=== PATIENT | male | born 1940 | race Caucasian/White ===

== ENCOUNTER → 2016-12-18 | Outpatient (CLI) | payer OTHER ==
[~2016-12-18] VITALS: Ht 175.3 cm; Wt 108.4 kg
[~2016-12-18] MED LIST: AMLO10TA4 PO; ASPEC325 PO; ASPI-435 PO; CHOL1000 PO; DTRSR/2 PO; FERR1TAB13 PO; FRRG PO; HYDR25TA4 PO; LISI-725 PO; LPT/40 PO; MECL1TAB42 PO; METO1TAB69 PO; MOME200A INH; OMEG10007 PO; OMEP40CA41 PO; PRLSR20 PO; SENNTAB23 PO; TAMS0.4C38 PO; VALS320T PO
[2016-12-18 13:12] VITALS: BP 190/77; PULSE 98; Ht 175.3 cm; Wt 108.4 kg
== END | disposition home or self-care (01) ==
LOC: C.NEUR 12:47
PROVIDERS: ATTEND Internal Medicine Pulmonary Disease
DX: G47.33 Obstructive sleep apnea (adult) (pediatric) (principal); I10 Essential (primary) hypertension

== ENCOUNTER → 2016-12-30 | Outpatient (CLI) | payer OTHER ==
--- NOTE | 2016-12-30 14:00 | DIAGNOSTIC IMAGING REPORT ---
LEFT SHOULDER MIN 2 VIEWS ROUTINE CLINICAL HISTORY: Left shoulder pain COMPARISON: None. DISCUSSION: No fractures or dislocations are visualized. There are no visible particular calcifications. IMPRESSION: Unremarkable conventional radiographic evaluation of the left shoulder for age Electronically signed by: David Patel M.D. 12/30/2016 1:58 PM Dictated Date/Time: 12/30/2016 1:58 PM
== END | disposition home or self-care (01) ==
LOC: C.RAD1850 13:47
PROVIDERS: ATTEND Internal Medicine
DX: M25.512 Pain in left shoulder (principal)

== ENCOUNTER → 2017-01-21 | Outpatient (CLI) | payer OTHER | END | disposition home or self-care (01) | LOC: C.LABBFT 10:32 | PROVIDERS: ATTEND Urology | DX: C61 Malignant neoplasm of prostate (principal); I25.10 Atherosclerotic heart disease of native coronary artery without angina pectoris; J45.909 Unspecified asthma, uncomplicated; D64.9 Anemia, unspecified; R79.9 Abnormal finding of blood chemistry, unspecified; M16.11 Unilateral primary osteoarthritis, right hip; G89.18 Other acute postprocedural pain; L03.811 Cellulitis of head [any part, except face]; L57.0 Actinic keratosis ==

== ENCOUNTER → 2017-04-27 | Outpatient (CLI) | payer OTHER ==
[~2017-04-27] MED LIST changes: +METO100T44 PO; -METO1TAB69 PO
[2017-04-27 17:49] LABS: ALT/SGPT 33 U/L (12-78); BLOOD UREA NITROGEN 30 mg/dl (7-18); BUN/CREATININE RATIO 16.5 (10-20); CALCIUM 9.3 mg/dl (8.5-10.1); CARBON DIOXIDE 28 mmol/L (21-32); CHLORIDE 103 mmol/L (98-107); CHOLESTEROL 161 mg/dl (0-200); GLUCOSE 129 mg/dl (70-99); POTASSIUM 3.9 mmol/L (3.5-5.1); SODIUM 138 mmol/L (136-145); TRIGLYCERIDES 160 mg/dl (0-150); VERY LOW DENSITY LIPOPROT CALC 32 mg/dl
[2017-04-27 17:53] LABS: ALB/GLOB RATIO 0.9 (0.9-2); ALKALINE PHOSPHATASE 85 U/L (45-117); AST/SGOT 21 U/L (15-37); CHOLESTEROL/HDL RATIO 3.9; HDL CHOLESTEROL 41 mg/dl; LDL CHOLESTEROL CALCULATED 88 mg/dl; PROSTATE SPECIFIC ANTIGEN 0.541 ng/ml (0.000-4.000)
[2017-04-28 06:10] LABS: ESTIMATED AVERAGE GLUCOSE 128 mg/dl; HA1C FLAG Normal (Normal)
== END | disposition home or self-care (01) ==
LOC: C.LABBFT 11:39
PROVIDERS: ATTEND Internal Medicine
DX: C61 Malignant neoplasm of prostate (principal); R73.01 Impaired fasting glucose; E78.5 Hyperlipidemia, unspecified

== ENCOUNTER → 2017-05-14 | Outpatient (CLI) | payer OTHER ==
[~2017-05-14] MED LIST changes: -ASPI-435 PO; -DTRSR/2 PO; -FERR1TAB13 PO; -MECL1TAB42 PO; -METO100T44 PO; +METO1TAB69 PO; -OMEG10007 PO; -OMEP40CA41 PO; -VALS320T PO
[2017-05-14 12:35] LABS: BLOOD UREA NITROGEN 25 mg/dl (7-18); BUN/CREATININE RATIO 14.9 (10-20); CALCIUM 9.8 mg/dl (8.5-10.1); CARBON DIOXIDE 25 mmol/L (21-32); CHLORIDE 105 mmol/L (98-107); GLUCOSE 105 mg/dl (70-99); POTASSIUM 3.8 mmol/L (3.5-5.1); SODIUM 139 mmol/L (136-145)
== END | disposition home or self-care (01) ==
LOC: C.LABBFT 08:59
PROVIDERS: ATTEND Physician Assistant Medical
DX: N18.3 Chronic kidney disease, stage 3 (moderate) (principal)

== ENCOUNTER → 2017-05-20 | Outpatient (CLI) | payer OTHER ==
[~2017-05-20] MED LIST changes: +ASPI-435 PO; +DTRSR/2 PO; +FERR1TAB13 PO; +MECL1TAB42 PO; +OMEG10007 PO; +OMEP40CA41 PO; +VALS320T PO
--- NOTE | 2017-05-20 10:40 | DIAGNOSTIC IMAGING REPORT ---
DUPLEX RENAL ARTERY CLINICAL HISTORY: 76 years-old Male presenting with stage III chronic kidney disease. TECHNIQUE: Real-time grayscale and color and spectral Doppler ultrasound imaging of the kidneys was performed. COMPARISON: None. FINDINGS: Right kidney: Intrarenal resistive indices range from 0.65 to 0.67. Normal intrarenal arterial waveforms. Renal artery patent with peak systolic velocity 146 cm/s. Renal vein patent. Mildly increased echogenicity of the renal parenchyma. Right kidney measures 12.9 cm. No hydronephrosis. Multiple simple cysts noted, the largest measuring 1.3 cm. Left kidney: Intrarenal resistive indices range from 0.65 to 0.67. Normal intrarenal arterial waveforms. Renal artery patent with peak systolic velocity 132-143 cm/s. Renal vein patent. Mildly increased echogenicity of the renal parenchyma. Left kidney measures 12.5 cm. No hydronephrosis. No convincing evidence of calculus or mass. Abdominal aorta: Obscured due to overlying bowel gas. Peak systolic velocity cannot be assessed. Other: None. Reference ranges: Main renal artery peak systolic velocity less than 180 cm/s and ratio of renal artery PSV to aortic PSV less than 2.5 equates to less than 60% stenosis. IMPRESSION: No evidence of renal artery stenosis. Patent renal vasculature. Mildly echogenic renal parenchyma may indicate chronic medical renal disease. No obstruction. Electronically signed by: Ilia Mujica M.D. 05/20/2017 10:39 AM Dictated Date/Time: 05/20/2017 10:35 AM
== END | disposition home or self-care (01) ==
LOC: C.ULTR 09:28
PROVIDERS: ATTEND Physician Assistant Medical
DX: N18.3 Chronic kidney disease, stage 3 (moderate) (principal)

== ENCOUNTER → 2017-05-25 | Outpatient (CLI) | payer OTHER ==
[2017-05-25 12:20] LABS: BASO % 0.5 %; BASO ABS # 0.05 K/uL (0-0.2); COMPLETE YES; HEMATOCRIT 38.7 % (42-52); IG% 0.4 %; LYMPH % 15.3 %; LYMPH ABS # 1.47 K/uL (1.2-3.4); MEAN CELL VOLUME 86.4 fL (80-100); MEAN CORPUSCULAR HEMOGLOBIN 29.7 pg (25-34); MEAN CORPUSCULAR HGB CONC 34.4 g/dl (32-36); MEAN PLATELET VOLUME 12.7 fL (7.4-10.4); MONO % 10.8 %; PLATELET COUNT 259 K/uL (130-400); RED BLOOD COUNT 4.48 M/uL (4.7-6.1); WHITE BLOOD COUNT 9.59 K/uL (4.8-10.8)
--- NOTE | 2017-06-09 13:07 | CODING QUERY MEDICAL NECESSITY ---
SUPPORTING DIAGNOSIS NEEDED A supporting diagnosis is required for the test/procedure performed on this patient in order for us to be reimbursed by the patient's insurance. Please provide a supporting diagnosis for the following test/procedure listed below next to the test name along with your signature. *If there is no additional diagnosis for this patient that would support the following test/procedure please document that below next to the test/procedure. Test(s)/Procedure(s) that require a supporting diagnosis: * VITAMIN D, 25-HYDROXY DIAGNOSIS: Provider Signature: Date: Thank you Anne Ariza [employer]™ Information Management Once completed, please kindly fax back to [phone] For questions please call [phone]
== END | disposition home or self-care (01) ==
LOC: C.LABBFT 09:36
PROVIDERS: ATTEND Physician Assistant Medical
DX: N28.9 Disorder of kidney and ureter, unspecified (principal); E55.9 Vitamin D deficiency, unspecified

== ENCOUNTER → 2017-06-16 | Outpatient (CLI) | payer OTHER ==
[2017-06-16 12:18] LABS: URINE APPEARANCE CLEAR (CLEAR); URINE BILIRUBIN NEG (NEG); URINE COLOR YELLOW; URINE EPITHELIAL CELL AUTO 0-5 /lpf (0-5); URINE NITRITE NEG (NEG); URINE SPECIFIC GRAVITY 1.017 (1.000-1.030); UROBILINOGEN NEG (NEG)
[2017-06-16 12:19] LABS: MANUAL MICROSCOPIC REQUIRED? NO; REVIEW REQ? NO
[2017-06-16 12:40] LABS: URINE PROTIEN/CREAT RATIO 1.9 (0-0.2); URINE TOTAL PROTEIN 188.2 mg/dl (0-11.9)
== END | disposition home or self-care (01) ==
LOC: C.LABBFT 09:48
PROVIDERS: ATTEND Physician Assistant Medical
DX: N28.9 Disorder of kidney and ureter, unspecified (principal); C61 Malignant neoplasm of prostate; I25.10 Atherosclerotic heart disease of native coronary artery without angina pectoris; R79.9 Abnormal finding of blood chemistry, unspecified; D64.9 Anemia, unspecified; J45.909 Unspecified asthma, uncomplicated; M16.11 Unilateral primary osteoarthritis, right hip; L57.0 Actinic keratosis; G89.18 Other acute postprocedural pain; L03.811 Cellulitis of head [any part, except face]

== ENCOUNTER → 2017-06-22 | Outpatient (CLI) | payer OTHER ==
[~2017-06-22] VITALS: Ht 175.3 cm; Wt 105.0 kg
[2017-06-22 12:56] VITALS: BP 162/85; PULSE 81; Ht 175.3 cm; Wt 105.0 kg
== END | disposition home or self-care (01) ==
LOC: C.NEUR 12:13
PROVIDERS: ATTEND Physician Assistant Medical
DX: G47.33 Obstructive sleep apnea (adult) (pediatric) (principal); E66.9 Obesity, unspecified; J45.909 Unspecified asthma, uncomplicated

== ENCOUNTER → 2017-07-27 | Day surgery (SDC) | payer OTHER ==
[2017-06-29 10:10] VITALS: Ht 175.3 cm; Wt 104.5 kg
[~2017-07-27] VITALS: Ht 175.3 cm; Wt 104.5 kg
[~2017-07-27] MED LIST changes: +500ML BSS 0.3ML EPI 1:1000PF IRRIG ONE; +ACETAMINOPHEN 325 MG TAB PO PRN; +AMVISC PLUS 0.8ML SYRINGE INT OCU ONE; -ASPEC325 PO; +ATROPINE SULFATE 0.1 MG/ML 5ML SYR IV PRN; +BSS FLUSH ONE; +EpHEDrine SULFATE INJ 50 MG/ML AMP IV PRN; +EpINEphrine INJ 1MG/ML AMP 1 MG/ML AMP ONE; -FRRG PO; +LACTATED RINGER'S 1000ML 500 ML IV SCH; +LIDOCAINE 3.5% OPH GEL PER APPLICATION CHARGE ONE; +LIDOCAINE HCL 1% MPF 2 ML VIAL ONE; -LISI-725 PO; +MIDAZOLAM HCL 1 MG/ML 2ML VIAL ONE; -MOME200A INH; +OCUCOAT 1 ML SOLN IO ONE; +POVIDONE-IODINE OP SOLN 30 ML BTL ONE; -PRLSR20 PO; +PROPARACAINE 0.5% OP SOLN PER DROP CHARGE OPL SCH; -TAMS0.4C38 PO; +TOBRAMYCIN/DEXAMETHASONE OPH OINT PER APPLN CHARGE ONE
[2017-07-27] MEDS: PHENYLEPHRINE HCL 2.5% OP SOLN PER DROP CHARGE OPL SCH ×2 (07:22→07:27)
[2017-07-27] MEDS: TROPICAMIDE 1% OP SOLN PER DROP CHARGE OPL SCH ×2 (07:23→07:28)
[2017-07-27] MEDS: CYCLOPENTOLATE HCL 1% OP SOLN PER DROP CHARGE OPL SCH ×2 (07:24→07:29)
[2017-07-27] MEDS: KETOROLAC 0.5% OP SOLN PER DROP CHARGE OPL SCH ×2 (07:25→07:30)
[2017-07-27] MEDS: GATIFLOXACIN OP SOLN PER DROP CHARGE OPL SCH ×2 (07:26→07:36)
--- NOTE | 2017-07-27 07:31 | History & Physical Bridge - SC ---
H&P Re-Evaluation Bridge Note: I have examined the patient, reviewed the History & Physical and in the interval since the performance of the History & Physical I have noted the following changes of clinical significance: Diagnosis: Left Cataract Procedure: Left Cataract Removal with Lens Implant No changes noted
--- NOTE | 2017-07-27 08:08 | Discharge Instructions-SurgCtr ---
Discharge Instructions Date of Service Jul 27, 2017. Visit Reason for Visit: Cataract Left Eye Discharge Discharge Diagnosis / Problem: cataract Discharge Goals Goal(s): Improve function Activity Recommendations Activity Limitations: per Instructions/Follow-up section Anesthesia . Post Anesthesia Instructions: If you have had General Anesthesia or IV Sedation: * Do not drive today. * Resume driving when surgeon permits. * Do not make important decisions or sign legal documents today. * Call surgeon for: 1. Temperature elevations greater than 101 degrees F. 2. Uncontrollable pain. 3. Excessive bleeding. 4. Persistent nausea and vomiting. 5. Medication intolerance (nausea, vomiting or rash). * For nausea and vomiting use only clear liquids such as: tea, soda, bouillon until nausea subsides, then gradually increase diet as tolerated. * If you have any concerns or questions, call your surgeon's office. If physician is unavailable and it is an emergency, call 911 or go to the nearest emergency room. . Diet Recommendations Home Diet: resume previous diet Procedures Procedures Performed: Left Cataract Phacoemulsification With Intraocular Lens Implant Pending Studies Studies pending at discharge: no Medical Emergencies . Who to Call and When: Medical Emergencies: If at any time you feel your situation is an emergency, please call 911 immediately. . Non-Emergent Contact Non-Emergency issues call your: Underwriting Support Specialist . . "Provider Documentation" section prepared by Juan Francisco Dang. .
--- NOTE | 2017-07-27 08:09 | [facility] Operative Report ---
Operative Report Date of Service Jul 27, 2017. Operative Report 1. PREOPERATIVE DIAGNOSIS: Cataract of the left eye. 2. POSTOPERATIVE DIAGNOSIS: Same. 3. PROCEDURE: Phacoemulsification with intraocular lens implantation of the left eye. SURGEON: Dr. Juan Francisco Dang. ANESTHESIA: Topical Lidocaine gel, 1% Non- Preserved intracameral Lidocaine, and monitored intravenous sedation. INDICATIONS FOR THE PROCEDURE: The patient is a 76 - year-old male with a history of cataract of the left eye causing significant visual impairment. The details of the proposed procedure were explained to the patient who asked appropriate questions and following discussion of all risks, benefits and alternatives agreed to have the procedure done. 4. OPERATION AND FINDINGS: DESCRIPTION OF PROCEDURE: After informed consent was obtained, the patient was brought to the Operating Room at the [facility]. The patient was placed in a supine position and then the left eye was prepped and draped in the usual sterile fashion for intraocular surgery. A drop of topical Lidocaine gel was placed in the operative eye. A wire lid speculum was then placed in the fornices. A corneal paracentesis was then created temporally. The Non-Preserved Lidocaine was then instilled into the anterior chamber. The anterior chamber was then pressurized with viscoelastic. A 2.0 mm clear corneal incision was then created temporally. A cystotome was inserted into the anterior chamber and used to create a tear in the anterior lens capsule. This capsular tear was then used to create a small flap and the flap was dragged in a counterclockwise direction in order to create a continuous curvilinear capsulorrhexis. Hydrodissection was accomplished with balanced salt solution. Phacoemulsification of the lens nucleus was then performed in a standard [id number] technique. The phaco time was 21 seconds with an average power of 9 %. The remaining cortical material was removed using irrigation aspiration. The capsular bag was then filled with viscoelastic. A Bausch [employer] Lomb MI60L +22.5 diopters lens was then loaded into the injector and injected into the capsular bag. The remaining viscoelastic was removed with the irrigation aspiration handpiece. The wound was hydrated and then checked and found to be watertight. The intraocular pressure was checked and found to be adequate. The wire lid speculum was removed and the patient's face was cleaned and dried. TobraDex ointment was placed in the inferior fornix. The patient was discharged to the Recovery Room having tolerated the procedure well. There were no complications. The patient will be seen tomorrow in the office for follow-up. I attest to the content of the Intraoperative Record and any orders documented therein. Any exceptions are noted below.
[2017-07-27 08:13] VITALS: TEMP 36.5
--- NOTE | 2017-07-27 08:22 | Anesthesia Progress Nt - [facility] ---
Anesthesia Post Op Note Date & Time Jul 27, 2017 at 08:22 Vital Signs Pain Intensity: 0 Vital Signs Past 12 Hours Date Time Temp Pulse Resp B/P (MAP) Pulse Ox O2 Delivery O2 Flow Rate FiO2 07/27/17 08:13 36.5 63 16 144/87 (106) 98 Room Air 07/27/17 07:15 36.6 79 20 165/78 (107) 96 Room Air Notes Mental Status: alert / awake / arousable, participated in evaluation Pt Amnestic to Procedure: Yes Nausea / Vomiting: adequately controlled Pain: adequately controlled Airway Patency, RR, SpO2: stable & adequate BP & HR: stable & adequate Hydration State: stable & adequate Anesthetic Complications: no major complications apparent
[2017-07-27 08:26] VITALS: BP 138/72; PULSE 53; O2SAT 96
== END | disposition home or self-care (01) ==
LOC: X.SURG 06:53
PROVIDERS: ATTEND Ophthalmology
DX: H26.9 Unspecified cataract (principal); J45.909 Unspecified asthma, uncomplicated; K21.9 Gastro-esophageal reflux disease without esophagitis; E78.5 Hyperlipidemia, unspecified; I10 Essential (primary) hypertension; I34.0 Nonrheumatic mitral (valve) insufficiency; E66.9 Obesity, unspecified; G47.33 Obstructive sleep apnea (adult) (pediatric); Z85.46 Personal history of malignant neoplasm of prostate; N18.3 Chronic kidney disease, stage 3 (moderate); Z98.61 Coronary angioplasty status; Z96.649 Presence of unspecified artificial hip joint; Z87.891 Personal history of nicotine dependence

== ENCOUNTER → 2017-08-12 | Day surgery (SDC) | payer OTHER ==
[2017-08-05 13:49] VITALS: Ht 175.3 cm; Wt 104.5 kg
[~2017-08-12] VITALS: Ht 175.3 cm; Wt 104.5 kg
[~2017-08-12] MED LIST changes: -ATROPINE SULFATE 0.1 MG/ML 5ML SYR IV PRN; -EpHEDrine SULFATE INJ 50 MG/ML AMP IV PRN; -PROPARACAINE 0.5% OP SOLN PER DROP CHARGE OPL SCH; +PROPARACAINE 0.5% OP SOLN PER DROP CHARGE OPR SCH
[2017-08-12] MEDS: PHENYLEPHRINE HCL 2.5% OP SOLN PER DROP CHARGE OPR SCH ×2 (07:21→07:27)
[2017-08-12] MEDS: TROPICAMIDE 1% OP SOLN PER DROP CHARGE OPR SCH ×2 (07:22→07:28)
[2017-08-12] MEDS: CYCLOPENTOLATE HCL 1% OP SOLN PER DROP CHARGE OPR SCH ×2 (07:23→07:29)
[2017-08-12] MEDS: KETOROLAC 0.5% OP SOLN PER DROP CHARGE OPR SCH ×2 (07:24→07:30)
[2017-08-12] MEDS: GATIFLOXACIN OP SOLN PER DROP CHARGE OPR SCH ×2 (07:25→07:35)
--- NOTE | 2017-08-12 07:25 | History & Physical Bridge - SC ---
H&P Re-Evaluation Bridge Note: I have examined the patient, reviewed the History & Physical and in the interval since the performance of the History & Physical I have noted the following changes of clinical significance: Diagnosis: Right Cataract Procedure: Right Cataract Removal with Lens Implant No changes noted
--- NOTE | 2017-08-12 08:06 | Discharge Instructions-SurgCtr ---
Discharge Instructions Date of Service Aug 12, 2017. Visit Reason for Visit: Cataract Right Eye Discharge Discharge Diagnosis / Problem: cataract Discharge Goals Goal(s): Improve function Activity Recommendations Activity Limitations: per Instructions/Follow-up section Anesthesia . Post Anesthesia Instructions: If you have had General Anesthesia or IV Sedation: * Do not drive today. * Resume driving when surgeon permits. * Do not make important decisions or sign legal documents today. * Call surgeon for: 1. Temperature elevations greater than 101 degrees F. 2. Uncontrollable pain. 3. Excessive bleeding. 4. Persistent nausea and vomiting. 5. Medication intolerance (nausea, vomiting or rash). * For nausea and vomiting use only clear liquids such as: tea, soda, bouillon until nausea subsides, then gradually increase diet as tolerated. * If you have any concerns or questions, call your surgeon's office. If physician is unavailable and it is an emergency, call 911 or go to the nearest emergency room. . Diet Recommendations Home Diet: resume previous diet Procedures Procedures Performed: Right Eye Cataract Phacoemulsification With Intraocular Lens Implant Pending Studies Studies pending at discharge: no Medical Emergencies . Who to Call and When: Medical Emergencies: If at any time you feel your situation is an emergency, please call 911 immediately. . Non-Emergent Contact Non-Emergency issues call your: Hide Cooking Operator . . "Provider Documentation" section prepared by Juan Francisco Dang. .
--- NOTE | 2017-08-12 08:07 | [facility] Operative Report ---
Operative Report Date of Service Aug 12, 2017. Operative Report 1. PREOPERATIVE DIAGNOSIS: Cataract of the right eye. 2. POSTOPERATIVE DIAGNOSIS: Same. 3. PROCEDURE: Phacoemulsification with intraocular lens implantation of the right eye. SURGEON: Dr. Juan Francisco Dang. ANESTHESIA: Topical Lidocaine gel, 1% Non- Preserved intracameral Lidocaine, and monitored intravenous sedation. INDICATIONS FOR THE PROCEDURE: The patient is a 76 - year-old male with a history of cataract of the right eye causing significant visual impairment. The details of the proposed procedure were explained to the patient who asked appropriate questions and following discussion of all risks, benefits and alternatives agreed to have the procedure done. 4. OPERATION AND FINDINGS: DESCRIPTION OF PROCEDURE: After informed consent was obtained, the patient was brought to the Operating Room at the [facility]. The patient was placed in a supine position and then the right eye was prepped and draped in the usual sterile fashion for intraocular surgery. A drop of topical Lidocaine gel was placed in the operative eye. A wire lid speculum was then placed in the fornices. A corneal paracentesis was then created temporally. The Non-Preserved Lidocaine was then instilled into the anterior chamber. The anterior chamber was then pressurized with viscoelastic. A 2.0 mm clear corneal incision was then created temporally. A cystotome was inserted into the anterior chamber and used to create a tear in the anterior lens capsule. This capsular tear was then used to create a small flap and the flap was dragged in a counterclockwise direction in order to create a continuous curvilinear capsulorrhexis. Hydrodissection was accomplished with balanced salt solution. Phacoemulsification of the lens nucleus was then performed in a standard [id number] technique. The phaco time was 28 seconds with an average power of 11 %. The remaining cortical material was removed using irrigation aspiration. The capsular bag was then filled with viscoelastic. A Bausch & Lomb MI60L +22.0 diopters lens was then loaded into the injector and injected into the capsular bag. The remaining viscoelastic was removed with the irrigation aspiration handpiece. The wound was hydrated and then checked and found to be watertight. The intraocular pressure was checked and found to be adequate. The wire lid speculum was removed and the patient's face was cleaned and dried. TobraDex ointment was placed in the inferior fornix. The patient was discharged to the Recovery Room having tolerated the procedure well. There were no complications. The patient will be seen tomorrow in the office for follow-up. I attest to the content of the Intraoperative Record and any orders documented therein. Any exceptions are noted below.
[2017-08-12 08:08] VITALS: TEMP 36.9
--- NOTE | 2017-08-12 08:17 | Anesthesia Progress Nt - [facility] ---
Anesthesia Post Op Note Date & Time Aug 12, 2017 at 08:17 Vital Signs Pain Intensity: 0 Vital Signs Past 12 Hours Date Time Temp Pulse Resp B/P (MAP) Pulse Ox O2 Delivery O2 Flow Rate FiO2 08/12/17 08:08 36.9 74 16 163/77 (105) 96 Room Air 08/12/17 07:16 37 72 18 180/91 (120) 96 Room Air Notes Mental Status: alert / awake / arousable, participated in evaluation Pt Amnestic to Procedure: Yes Nausea / Vomiting: adequately controlled Pain: adequately controlled Airway Patency, RR, SpO2: stable & adequate BP & HR: stable & adequate Hydration State: stable & adequate Anesthetic Complications: no major complications apparent
[2017-08-12 08:31] VITALS: BP 171/88; PULSE 66; O2SAT 96
== END | disposition home or self-care (01) ==
LOC: X.SURG 06:44
PROVIDERS: ATTEND Ophthalmology
DX: H26.9 Unspecified cataract (principal); I34.0 Nonrheumatic mitral (valve) insufficiency; I25.10 Atherosclerotic heart disease of native coronary artery without angina pectoris; I45.10 Unspecified right bundle-branch block; I12.9 Hypertensive chronic kidney disease with stage 1 through stage 4 chronic kidney disease, or unspecified chronic kidney disease; N18.3 Chronic kidney disease, stage 3 (moderate); E78.5 Hyperlipidemia, unspecified; D64.9 Anemia, unspecified; J45.909 Unspecified asthma, uncomplicated; G47.33 Obstructive sleep apnea (adult) (pediatric); J98.4 Other disorders of lung; E55.9 Vitamin D deficiency, unspecified; K21.9 Gastro-esophageal reflux disease without esophagitis; N52.9 Male erectile dysfunction, unspecified; E66.9 Obesity, unspecified; Z87.891 Personal history of nicotine dependence; Z79.899 Other long term (current) drug therapy

== ENCOUNTER → 2017-08-18 | Outpatient (CLI) | payer OTHER ==
[~2017-08-18] MED LIST changes: -500ML BSS 0.3ML EPI 1:1000PF IRRIG ONE; -ACETAMINOPHEN 325 MG TAB PO PRN; -AMVISC PLUS 0.8ML SYRINGE INT OCU ONE; -BSS FLUSH ONE; -EpINEphrine INJ 1MG/ML AMP 1 MG/ML AMP ONE; -LACTATED RINGER'S 1000ML 500 ML IV SCH; -LIDOCAINE 3.5% OPH GEL PER APPLICATION CHARGE ONE; -LIDOCAINE HCL 1% MPF 2 ML VIAL ONE; -MIDAZOLAM HCL 1 MG/ML 2ML VIAL ONE; -OCUCOAT 1 ML SOLN IO ONE; -POVIDONE-IODINE OP SOLN 30 ML BTL ONE; -PROPARACAINE 0.5% OP SOLN PER DROP CHARGE OPR SCH; -TOBRAMYCIN/DEXAMETHASONE OPH OINT PER APPLN CHARGE ONE
[2017-08-18 17:26] LABS: BASO % 0.5 %; BASO ABS # 0.06 K/uL (0-0.2); COMPLETE YES; EOS % 2.8 %; HEMATOCRIT 34.3 % (42-52); IG% 0.4 %; LYMPH % 14.6 %; LYMPH ABS # 1.72 K/uL (1.2-3.4); MEAN CELL VOLUME 87.3 fL (80-100); MEAN CORPUSCULAR HGB CONC 34.4 g/dl (32-36); MEAN PLATELET VOLUME 12.3 fL (7.4-10.4); NEUT % 70.7 %; PLATELET COUNT 266 K/uL (130-400); RED BLOOD COUNT 3.93 M/uL (4.7-6.1)
[2017-08-18 17:39] LABS: BLOOD UREA NITROGEN 32 mg/dl (7-18); BUN/CREATININE RATIO 20.9 (10-20); CALCIUM 8.7 mg/dl (8.5-10.1); CARBON DIOXIDE 25 mmol/L (21-32); CHLORIDE 106 mmol/L (98-107); CREATININE 1.55 mg/dl (0.60-1.40); GLUCOSE 98 mg/dl (70-99); MAGNESIUM 1.5 mg/dl (1.8-2.4); SODIUM 139 mmol/L (136-145)
[2017-08-18 17:40] LABS: PHOSPHORUS 2.8 mg/dl (2.5-4.9)
[2017-08-18 17:41] LABS: URINE APPEARANCE CLEAR (CLEAR); URINE BILIRUBIN NEG (NEG); URINE COLOR YELLOW; URINE EPITHELIAL CELL AUTO 0-5 /lpf (0-5); URINE NITRITE NEG (NEG); URINE PH 5.5 (4.5-7.5); URINE SPECIFIC GRAVITY 1.017 (1.000-1.030); UROBILINOGEN NEG (NEG); ZZUR CULT IF INDIC CLEAN CATCH NO
[2017-08-18 17:48] LABS: MANUAL MICROSCOPIC REQUIRED? NO; REVIEW REQ? NO
[2017-08-18 18:17] LABS: CREATININE, URINE 88.1 mg/dl; URINE PROTIEN/CREAT RATIO 1.5 (0-0.2); URINE TOTAL PROTEIN 134.2 mg/dl (0-11.9)
== END | disposition home or self-care (01) ==
LOC: C.LABBFT 14:20
PROVIDERS: ATTEND Internal Medicine Nephrology
DX: N18.3 Chronic kidney disease, stage 3 (moderate) (principal)

== ENCOUNTER → 2017-11-02 | Outpatient (CLI) | payer OTHER ==
[~2017-11-02] MED LIST changes: +METO100T44 PO; -METO1TAB69 PO
[2017-11-02 12:30] LABS: BASO % 0.5 %; BASO ABS # 0.05 K/uL (0-0.2); EOS % 3.8 %; EOS ABS # 0.38 K/uL (0-0.5); HEMATOCRIT 35.6 % (42-52); HEMOGLOBIN 12.6 g/dL (14.0-18.0); IG# 0.02 K/uL (0.00-0.02); LYMPH % 14.4 %; LYMPH ABS # 1.43 K/uL (1.2-3.4); MEAN CELL VOLUME 87.9 fL (80-100); MEAN CORPUSCULAR HEMOGLOBIN 31.1 pg (25-34); MEAN CORPUSCULAR HGB CONC 35.4 g/dl (32-36); MONO % 10.6 %; MONO ABS # 1.05 K/uL (0.11-0.59); NEUT % 70.5 %; NEUT ABS # 6.98 K/uL (1.4-6.5); PLATELET COUNT 222 K/uL (130-400); RED CELL DISTRIBUTION WIDTH CV 12.5 % (11.5-14.5); RED CELL DISTRIBUTION WIDTH SD 40.6 fL (36.4-46.3); WHITE BLOOD COUNT 9.91 K/uL (4.8-10.8)
[2017-11-02 12:55] LABS: HEMOGLOBIN A1C 5.9 % (4.5-5.6)
[2017-11-02 13:09] LABS: ALBUMIN 3.4 gm/dl (3.4-5.0); BLOOD UREA NITROGEN 37 mg/dl (7-18); CARBON DIOXIDE 25 mmol/L (21-32); CREATININE 1.88 mg/dl (0.60-1.40); GLUCOSE 106 mg/dl (70-99); POTASSIUM 3.8 mmol/L (3.5-5.1); SODIUM 137 mmol/L (136-145)
== END | disposition home or self-care (01) ==
LOC: C.LABBFT 09:22
PROVIDERS: ATTEND Urology
DX: C61 Malignant neoplasm of prostate (principal); E55.9 Vitamin D deficiency, unspecified; R73.01 Impaired fasting glucose; K21.9 Gastro-esophageal reflux disease without esophagitis; N18.3 Chronic kidney disease, stage 3 (moderate)

== ENCOUNTER → 2017-12-21 | Outpatient (CLI) | payer OTHER ==
[~2017-12-21] VITALS: Ht 175.3 cm; Wt 106.3 kg
[2017-12-21 12:36] VITALS: BP 163/71; PULSE 81; Ht 175.3 cm; Wt 106.3 kg
== END | disposition home or self-care (01) ==
LOC: C.NEUR 11:58
PROVIDERS: ATTEND Internal Medicine Pulmonary Disease
DX: G47.33 Obstructive sleep apnea (adult) (pediatric) (principal); J45.909 Unspecified asthma, uncomplicated; E66.9 Obesity, unspecified

== ENCOUNTER → 2018-02-21 | Outpatient (CLI) | payer OTHER ==
[2018-02-21 17:28] LABS: ALBUMIN 3.3 gm/dl (3.4-5.0); BLOOD UREA NITROGEN 41 mg/dl (7-18); CALCIUM 9.1 mg/dl (8.5-10.1); CARBON DIOXIDE 26 mmol/L (21-32); CREATININE 2.04 mg/dl (0.60-1.40); GLUCOSE 130 mg/dl (70-99); POTASSIUM 4.2 mmol/L (3.5-5.1); SODIUM 137 mmol/L (136-145)
== END | disposition home or self-care (01) ==
LOC: C.LABBFT 13:22
PROVIDERS: ATTEND Internal Medicine Nephrology
DX: N18.3 Chronic kidney disease, stage 3 (moderate) (principal)

== ENCOUNTER → 2018-03-21 | Outpatient (CLI) | payer OTHER ==
[2018-03-21 16:57] LABS: BLOOD UREA NITROGEN 37 mg/dl (7-18); CALCIUM 9.8 mg/dl (8.5-10.1); CARBON DIOXIDE 29 mmol/L (21-32); CREATININE 1.74 mg/dl (0.60-1.40); GLUCOSE 125 mg/dl (70-99); POTASSIUM 4.5 mmol/L (3.5-5.1); SODIUM 138 mmol/L (136-145)
== END | disposition home or self-care (01) ==
LOC: C.LABBFT 13:29
PROVIDERS: ATTEND Urology
DX: C61 Malignant neoplasm of prostate (principal); I25.10 Atherosclerotic heart disease of native coronary artery without angina pectoris; J45.909 Unspecified asthma, uncomplicated; D64.9 Anemia, unspecified; M16.11 Unilateral primary osteoarthritis, right hip; L57.0 Actinic keratosis; Z86.69 Personal history of other diseases of the nervous system and sense organs

== ENCOUNTER → 2018-06-02 | Outpatient (CLI) | payer OTHER ==
[~2018-06-02] MED LIST changes: +PERFLUTREN LIPID MICROSPHERE (DEFINITY) IV ONE
--- NOTE | 2018-06-02 15:18 | EXERCISE STRESS ECHO ---
*NOTICE TO RECEIVING CONSTITUTION PARTY AGENCY This information is strictly Confidential and protected under [place] law. [place] law prohibits you from making any further disclosure of this information unless further disclosure is expressly permitted by the written consent of the person to whom it pertains or is authorized by law. A general authorization for the release of medical or other information is not sufficient for this purpose. Hospital accepts no responsibility if the information is made available to any other person, INCLUDING THE PATIENT. Interpretation Summary * Name: JOHANNE SPRING Study Date: 06/02/2018 11:19 AM BP: 155/75 mmHg * Patient Location: [facility] HR: 67 * : 1940 (M/d/yyyy) Gender: Male Height: 66 in * Age: 77 yrs Ethnicity: [place] Weight: 230 lb * Ordering Physician: Raulito Mayer * Referring Physician: Raulito Mayer * Performed By: Nicci Bassett RDCS * * Reason For Study: SHORTNESS OF BREATH * BSA: 2.1 m2 * -- Conclusions -- * There is mild concentric left ventricular hypertrophy. * Left ventricular systolic function is normal. * Grade I diastolic dysfunction, (abnormal relaxation pattern). * Borderline left atrial enlargement. * Poor exercise tolerance * Nondiagnostic exercise echocardiogram due to inability to achieve target heart rate * No evidence of ischemia at the workload achieved Procedure Details * ECHOEX, CPT #[id number] * ECHO DOPPLER, CPT #[id number] * ECHO COLOR FLOW, CPT #[id number] * The study was technically difficult with many images being suboptimal in quality. * The study was technically limited with all images being suboptimal in quality. * A contrast injection of Definity was performed to improve assessment of LV function. * Contrast was injected into an intravenous site in the right arm. * One vial of Definity ultrasound contrast was diluted in normal saline to a total volume of 10 ml. A total of '3.5' ml of solution was administered during imaging. * Lot # [id number] of Definity utilized for procedure. * Expiration date 05/19. * The attending nurse who injected the contrast agent was NAA HOPKINS RN. Left Ventricular Findings with Stress * Poor exercise tolerance Nondiagnostic exercise echocardiogram due to inability to achieve target heart rate No evidence of ischemia at the workload achieved Left Ventricle * The left ventricle is normal in size. * There is mild concentric left ventricular hypertrophy. * Ejection Fraction = 65-70%. * Left ventricular systolic function is normal. * Grade I diastolic dysfunction, (abnormal relaxation pattern). * The left ventricular wall motion is normal at rest. Right Ventricle * The right ventricle is normal in size and function. * The right ventricular systolic function is normal as assessed by tricuspid annular plane systolic excursion (TAPSE) (normal >1.5 cm). Atria * Borderline left atrial enlargement. * Right atrial size is normal. Mitral Valve * The mitral valve is grossly normal. * Significant mitral regurgitation is absent. Tricuspid Valve * The tricuspid valve is not well visualized, but is grossly normal. * Significant tricuspid regurgitation is absent. Aortic Valve * The aortic valve is normal in structure and function. * No hemodynamically significant valvular aortic stenosis. * There is no significant aortic regurgitation. Pulmonic Valve * The pulmonic valve is not well visualized. Pericardium * There is no pericardial effusion. Stress Parameters * Normal sinus rhythm with right bundle branch block * Stress ECG: No ST changes. No arrhythmias. * The stress portion of this study was personally supervised by the undersigned interpreting physician. * Rest heart rate was '67' BPM. * Rest blood pressure was '155/75' * Maximum heart rate achieved was 113 bpm. * Maximum heart rate was 79 % of maximum age-predicted heart rate. * Maximum blood pressure was '180/77' * Total exercise time was '3:01' * Maximum exercise MET level achieved was '4.60' METS * Maximum treadmill speed was '1.70' miles per hour. * Maximum treadmill elevation was '10.00'% grade. * Exercise was terminated due to 'dyspnea' * Target Heart Rate was not achieved due to dyspnea. * The patient exhibited dyspnea during exercise. * Exercise was stopped due to dyspnea. Left Ventricular Findings with Stress * Baseline EKG revealed right bundle branch block There are no significant ST or T-wave changes during exercise or recovery The baseline LV function was normal There was normal augmentation of all segments without development of wall motion abnormalities at peak exertion Daly treadmill score: 3 (moderate risk) Test was discontinued due to dyspnea MMode 2D Measurements and Calculations IVSd 2.1 cm IVSs 2.9 cm LVIDd 4.4 cm LVIDs 2.8 cm LVPWd 1.3 cm LVPWs 1.5 cm IVS/LVPW 1.6 FS 37.2 % EDV(Teich) 90.0 ml ESV(Teich) 29.4 ml EF(Teich) 67.3 % EDV(cubed) 88.0 ml ESV(cubed) 21.8 ml EF(cubed) 75.2 % % IVS thick 42.7 % % LVPW thick 20.0 % LV mass(C)d 316.8 grams LV mass(C)dI 149.3 grams/m\S\2 LV mass(C)s 298.3 grams LV mass(C)sI 140.5 grams/m\S\2 SV(Teich) 60.6 ml SI(Teich) 28.5 ml/m\S\2 SV(cubed) 66.2 ml SI(cubed) 31.2 ml/m\S\2 ACS 0.96 cm LA dimension 4.0 cm LVOT diam 1.5 cm LVOT area 1.7 cm\S\2 LVAd ap4 27.6 cm\S\2 LVLd ap4 8.7 cm EDV(MOD-sp4) 71.6 ml EDV(sp4-el) 74.4 ml LVAs ap4 14.3 cm\S\2 LVLs ap4 7.2 cm ESV(MOD-sp4) 25.3 ml ESV(sp4-el) 24.1 ml EF(MOD-sp4) 64.7 % EF(sp4-el) 67.5 % LVAd ap2 25.4 cm\S\2 LVLd ap2 7.9 cm EDV(MOD-sp2) 65.0 ml EDV(sp2-el) 69.0 ml LVAs ap2 13.8 cm\S\2 LVLs ap2 7.0 cm ESV(MOD-sp2) 22.7 ml ESV(sp2-el) 22.9 ml EF(MOD-sp2) 65.1 % EF(sp2-el) 66.8 % LVLd %diff -9.96 % EDV(MOD-bp) 69.9 ml LVLs %diff -2.13 % ESV(MOD-bp) 24.1 ml EF(MOD-bp) 65.5 % SV(MOD-sp4) 46.3 ml SI(MOD-sp4) 21.8 ml/m\S\2 SV(MOD-sp2) 42.3 ml SI(MOD-sp2) 20.0 ml/m\S\2 SV(MOD-bp) 45.8 ml SI(MOD-bp) 21.6 ml/m\S\2 SV(sp4-el) 50.2 ml SI(sp4-el) 23.7 ml/m\S\2 SV(sp2-el) 46.1 ml SI(sp2-el) 21.7 ml/m\S\2 Doppler Measurements and Calculations MV E max gina 105.9 cm/sec MV A max gina 110.5 cm/sec MV E/A 0.96 MV dec time 0.24 sec Ao V2 max 131.1 cm/sec Ao max PG 6.9 mmHg Ao max PG (full) 4.6 mmHg CONSTANCE(V,A) 0.95 cm\S\2 CONSTANCE(V,D) 0.95 cm\S\2 LV V1 max PG 2.2 mmHg LV V1 max 74.9 cm/sec PA V2 max 70.1 cm/sec PA max PG 2.0 mmHg
== END | disposition home or self-care (01) ==
LOC: C.CPL 11:14
PROVIDERS: ATTEND Internal Medicine
DX: R06.02 Shortness of breath (principal)

== ENCOUNTER → 2018-06-10 | Outpatient (CLI) | payer OTHER ==
[~2018-06-10] MED LIST changes: +OPTIRAY 320 IV PRN; -PERFLUTREN LIPID MICROSPHERE (DEFINITY) IV ONE
--- NOTE | 2018-06-10 15:27 | DIAGNOSTIC IMAGING REPORT ---
NECK CTA HISTORY: CAROTID STENOSIS TECHNIQUE: Multiaxial CT images of the neck were performed following the intravenous administration of contrast to evaluate the major cervical vessels. Maximum intensity projection images were also obtained. All measurements were calculated based on NASCET criteria. A dose lowering technique was utilized adhering to the principles of ALARA. COMPARISON STUDY: None. FINDINGS: The aortic arch and proximal great vessels are widely patent. Moderate focal stenosis at the origins of the bilateral vertebral arteries. There is also 50-60% stenosis within the proximal basilar artery. Moderate calcified plaque within the bilateral carotid siphons which appear patent. Moderate calcified plaque within the right carotid bulb and within the left carotid bifurcation. There is approximately 60-70% stenosis at the distal left common carotid artery immediately proximal to the carotid bifurcation. No significant stenosis within the left internal carotid artery. The right common carotid artery is patent. There is 30% stenosis within the proximal right internal carotid artery due to the calcified plaque. There is a 4 mm mixed solid and groundglass nodule within the right upper lobe on image 38. Punctate calcified granuloma within the right upper lobe. The left lung is clear. Poststernotomy changes. Moderate to severe disc space narrowing and endplate osteophytes at C5-C6 and C6-C7. A 7 mm nodule within the right thyroid lobe. No cervical lymphadenopathy. Best seen on images 304 through 334 there is an extra-axial lesion posterior to the medulla which measures approximately 2.0 x 1.3 x 2.5 cm. This demonstrates diffuse stippled calcification. This results in mild mass effect along the cervical medullary junction. No dilatation of the fourth ventricle identified. IMPRESSION: 1. 60-70% stenosis within the distal left common carotid artery immediately proximal to the carotid bifurcation. 2. 30% stenosis within the proximal right internal carotid artery. 3. 50-60% stenosis within the proximal basilar artery. 4. 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 Dedicated brain MRI is recommended for further evaluation. No associated dilatation of the fourth ventricle to suggest hydrocephalus at this time. 5. A 4 mm groundglass nodule within the right upper lobe. One-year chest CT follow is recommended. 6. These findings were called to the referring physician's office following dictation. Electronically signed by: Lamonte Napier M.D. 06/10/2018 3:25 PM Dictated Date/Time: 06/10/2018 3:09 PM
== END | disposition home or self-care (01) ==
LOC: C.CTS 14:41
PROVIDERS: ATTEND Surgery
DX: I65.23 Occlusion and stenosis of bilateral carotid arteries (principal); I65.1 Occlusion and stenosis of basilar artery; R91.1 Solitary pulmonary nodule

== ENCOUNTER → 2018-06-24 | Outpatient (CLI) | payer OTHER ==
[~2018-06-24] MED LIST changes: +GADAVIST IV PRN; -OPTIRAY 320 IV PRN
--- NOTE | 2018-06-24 22:05 | DIAGNOSTIC IMAGING REPORT ---
BRAIN COMBO HISTORY: 77 years-old Male BRAIN MASS follow-up study to assess a 2.57 m calcified extra-axial mass posterior to the left seen on comparison CTA of the neck COMPARISON: CTA of the neck 06/10/2018 TECHNIQUE: Multiplanar multisequence MRI of the brain was obtained both with and without the use of 10 ml Gadavist FINDINGS: There is no restricted diffusion to suggest acute or subacute infarction. Midline structures including the corpus callosum, brainstem, optic chiasm, pituitary and pineal glands appear unremarkable on the sagittal T1 series. No cerebellar tonsillar herniation. Degenerative changes about the imaged cervical spine. No acute intracranial hemorrhage, midline shift, intra-axial mass or hydrocephalus. Moderate degree of T2/FLAIR prolongation about the periventricular and deep white matter of the cerebral hemispheres bilaterally suggests chronic microvascular ischemic changes. There is redemonstration of a lobular partially calcified extra-axial mass about the inferior aspect of the fourth ventricle. This mass demonstrates heterogeneous intermediate T2 and T1 signal with areas of heterogeneous enhancement measuring 1.2 x 2.2 x 3.1 cm in AP, transverse and craniocaudal dimensions. Mass demonstrates low to intermediate signal on the diffusion-weighted images. No additional abnormal intra-axial or extra-axial enhancement identified. The mass causes mild mass effect upon the cerebellar tonsils and posterior medulla. No associated hydrocephalus identified. No invasion into adjacent structures. Indeterminate 7 mm cutaneous nodule within the right supraorbital soft tissues demonstrates increased T2 signal. Cerebral venous sinuses appear patent. Major flow voids are patent. Mastoid air cells are clear. Mild mucosal thickening of the ethmoid airways and maxillary sinuses. Skull appears unremarkable. IMPRESSION: 1. Lobular partially calcified extra-axial mass about the inferior aspect of the fourth ventricle redemonstrated measuring up to 3.1 cm in greatest dimension exhibiting heterogeneous internal enhancement. No associated hydrocephalus. Differential considerations would include subependymoma or oligodendroglioma among other etiologies with choroid plexus papilloma or carcinoma thought to be less likely. Neurosurgical consultation recommended. 2. Mild atrophy with chronic microvascular ischemic changes. 3. Mild paranasal sinus disease. The above report was generated using voice recognition software. It may contain grammatical, syntax or spelling errors. Electronically signed by: Tomy Pham M.D. 06/24/2018 10:03 PM Dictated Date/Time: 06/24/2018 5:25 PM
== END | disposition home or self-care (01) ==
LOC: C.MRI 15:49
PROVIDERS: ATTEND Surgery
DX: G93.9 Disorder of brain, unspecified (principal)

== ENCOUNTER 2021-12-10 03:46 | Observation (INO) ==
--- NOTE | 2021-12-10 04:04 | Emergency Department Note ---
Impression & Plan OLIVEROS (dyspnea on exertion) ADMIT ED Provider Note HPI: The patient is an 81-year-old male with history of coronary artery disease status post CABG in 2003, history of peripheral artery disease, obesity, chronic kidney disease, who presents the emergency department with a chief complaint of shortness of breath. Patient does have a history of nocturnal hypoxemia, states he wears a CPAP at night, also history of CAD, COPD, patient states he was having difficulty sleeping tonight secondary to restlessness and shortness of breath. He states this was despite wearing his CPAP as he normally does. Patient denies any chest pain. On arrival here to the ED the patient appears well, he is noted to be hypertensive but is saturating well on room air. He is in no acute distress on my initial evaluation. ROS: -Pulmonary: Shortness of breath *10 point review systems was conducted and is otherwise negative unless stated above *Outpatient medications and allergy history reviewed PE: General: Alert, NAD HEENT: Normocephalic, atraumatic Eyes: Extraocular eye movement is intact, no scleral erythema Pulmonary: Diminished bilaterally without wheezing or crackles Cardio: Regular rate and rhythm GI: Abdomen is soft, nontender : No suprapubic tenderness MSK: No evidence of trauma or malformation of the extremities, no edema Skin: No evidence of rash Neuro: Alert, no focal deficits Psychiatric: Cooperative 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 He states this does worsen with exertion. On arrival here to the ED the patient is hypertensive greater than 200 systolic, he was given IV Lasix as well as sublingual nitroglycerin over concern for possible fluid overload and pulmonary edema. Patient denies any chest pain. Lab work shows evidence of unremarkable venous blood gas, no leukocytosis, baseline CKD, troponin is slightly elevated at 0.06, I do not see any acute ischemic changes on the patient's EKG. He denies any chest pain currently. Chest x-ray is concerning for possible bilateral pleural effusions in addition to an element of pulmonary edema per my interpretation, official read from radiology is pending. I find ammonia less likely given that the patient does not have a cough, he does not have a leukocytosis or left shift at this time. He is afebrile. Patient's oxygen saturation is about 91 to 92% on room air, he did perform an ambulatory pulse ox and unfortunately he desaturated to 85% relatively quickly with only few steps. He was diuresed here in the ED in addition to given the sublingual nitroglycerin for his elevated pressures. I do think given his condition he would benefit from admission for further diuresis given his increased oxygen requirement with ambulation. Covid testing was obtained and is negative. Patient is in agreement to the above plan, I discussed the above findings with the on-call hospitalist, Dr. Soliz, and the patient was admitted in stable condition for further care. Diagnosis: 1. Dyspnea on exertion 2. Elevated troponin 3. Hypoxia on exertion 4. Pulmonary edema Disposition: Admission Advised outpatient follow up: - Return to the ED with any new or worsening symptoms - PCP in 2-3 Days Isaias Falk DO Emergency Medicine 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 Hypertension Impaired fasting glucose Proteinuria Sensorineural hearing loss (SNHL) of both ears SNHL (sensorineural hearing loss) Stage 3 chronic kidney disease Surgical History History of cataract surgery History of colonoscopy History of prostate surgery Hx of CABG S/P hip replacement Family History Denies family history of Ovarian cancer Prostate cancer Kidney disease Myocardial infarction Breast cancer Colorectal cancer Social History Smoking Status: Former smoker Tobacco Type: Cigars Age Started Using Tobacco: 24; Age Quit Using Tobacco: 49; Second Hand Exposure: No; Hx Alcohol Use: No Hx Substance Use: No Preferred Language: [place] Communication Ability: Effective Visual Impairment: Limited Hearing Ability: Use of Hearing Aid [employer] Required: No marital status: / Current Living Situation: Alone current occupational status: 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 Feels Safe at Home: Yes Childhood Exposure to Second-Hand Smoke: Yes caffeine: No during the past year weight has: remained stable Dental Care, Regularly: No Physical Activity Frequency: Does not Exercise Seatbelt Use: always Sunscreen Use: No Assistive Devices: Denture - Upper, Denture - Lower, Glasses and Hearing Aid - Bilateral Allergies Allergies Allergy/AdvReac Type Severity Reaction Status Date / Time amlodipine Allergy Unknown Unverified 12/10/21 07:26 aspirin Allergy Unknown Unverified 12/10/21 07:26 atorvastatin Allergy Unknown Unverified 12/10/21 07:26 Home Meds Home Medications Medication Instructions Recorded Confirmed ferrous sulfate 325 mg (65 mg 325 mg PO BID tab 05/31/19 12/10/21 iron) tablet albuterol sulfate 90 mcg/actuation 1 inh INHALATION Q4H 12/10/21 12/10/21 breath activated powder inhaler,sensor cholecalciferol (vitamin D3) 25 1,000 units PO DAILY 12/10/21 12/10/21 mcg (1,000 unit) capsule fesoterodine 4 mg tablet,extended 4 mg PO DAILY 12/10/21 12/10/21 release 24 hr umeclidinium 62.5 mcg-vilanterol 1 inh INHALATION DAILY 12/10/21 12/10/21 25 mcg/actuation powdr for inhalation (Anoro Ellipta) Previous Rx's Medication Instructions Recorded nitroglycerin 0.4 mg sublingual 0.4 mg SL .COMPLEX #25 tab 04/14/19 tablet omega-3 fatty acids 1,250 mg 1,250 mg PO DAILY #30 cap 04/14/19 capsule aspirin 81 mg tablet,delayed 81 mg PO DAILY #90 tab 04/18/19 release (Enteric Coated Aspirin) losartan 100 1 tab PO DAILY #90 tab 10/04/20 mg-hydrochlorothiazide 25 mg tablet metoprolol succinate 100 mg 100 mg PO DAILY #90 tab 10/16/20 tablet,extended release 24 hr amlodipine 10 mg tablet 10 mg PO DAILY #90 tab 10/30/20 atorvastatin 80 mg tablet 80 mg PO DAILY #90 tab 06/06/21 Results & Data (ED) Vital Signs Vital Signs - 24 hr 12/10/21 03:51 12/10/21 04:06 12/10/21 05:19 Temperature 36.6 C Temperature Source Oral Pulse Rate 63 Pulse Rate [Apical] 62 Respiratory Rate 27 H 22 Blood Pressure 209/88 H Blood Pressure [Right Arm] 193/76 H Blood Pressure Mean 128 Blood Pressure Mean [Right Arm] 115 Pulse Oximetry 93 93 92 Oxygen Delivery Method Room Air Room Air Room Air Oxygen Flow Rate 0 Sepsis Recent Fever Within 48 Hours No Sepsis New/Unexplained Change in Mental Status No Sepsis Action Taken by Nursing No Action Required 12/10/21 06:05 12/10/21 06:42 Temperature Temperature Source Pulse Rate Pulse Rate [Apical] 59 L 64 Respiratory Rate 28 H 27 H Blood Pressure Blood Pressure [Right Arm] 189/94 H 210/81 H Blood Pressure Mean Blood Pressure Mean [Right Arm] 125 124 Pulse Oximetry 91 92 Oxygen Delivery Method Room Air Room Air Oxygen Flow Rate Sepsis Recent Fever Within 48 Hours Sepsis New/Unexplained Change in Mental Status Sepsis Action Taken by Nursing Laboratory Data Result diagrams: 12/10/21 03:55 12/10/21 03:55 Lab Results 12/10/21 12/10/21 12/10/21 Range/Units 03:55 03:55 03:55 WBC 9.72 (4.8-10.8) K/uL RBC 3.93 L (4.7-6.1) M/uL Hgb 12.1 L (14.0-18.0) g/dL Hct 35.4 L (42-52) % MCV 90.1 (80-100) fL MCH 30.8 (25-34) pg MCHC 34.2 (32-36) g/dL RDW Std Deviation 41.7 (36.4-46.3) fL RDW Coeff of Natalie 12.7 (11.5-14.5) % Plt Count 250 (130-400) K/uL MPV 12.6 H (7.4-10.4) fL Immature Gran % (Auto) 0.1 % Neut % (Auto) 66.7 % Lymph % (Auto) 17.7 % [place] % (Auto) 10.0 % Eos % (Auto) 5.1 % Baso % (Auto) 0.4 % Neut # (Auto) 6.48 (1.4-6.5) K/uL Lymph # (Auto) 1.72 (1.2-3.4) K/uL [place] # (Auto) 0.97 H (0.11-0.59) K/uL Eos # (Auto) 0.50 (0-0.5) K/uL Baso # (Auto) 0.04 (0-0.2) K/uL Immature Gran # (Auto) 0.01 (0.00-0.02) K/uL PT Cancelled INR Cancelled APTT Cancelled PTT Ratio Cancelled VBG pH (7.36-7.41) VBG pCO2 (38-50) mmHg VBG pO2 mmHg VBG HCO3 mmol/L VBG O2 Saturation % VBG Base Excess mEq/L Barometric Pressure mm/Hg Sodium 139 (136-145) mmol/L Potassium 4.0 (3.5-5.1) mmol/L Chloride 107 (98-107) mmol/L Carbon Dioxide 24 (21-32) mmol/L Anion Gap 8 (3-11) BUN 48 H (6-23) mg/dl Creatinine 2.32 H (0.6-1.4) mg/dl Est Cr Clr Drug Dosing 27.7 ml/min Est GFR ( Amer) 29.2 ml/min Est GFR (Non-Af Amer) 25.2 ml/min BUN/Creatinine Ratio 20.7 H (10-20) Glucose 103 H (70-99(Fasting)) mg/dl Calcium 9.5 (8.5-10.1) mg/dl Total Bilirubin 0.5 (0.2-1.0) mg/dl AST 15 (13-39) U/L ALT 15 (7-52) U/L Alkaline Phosphatase 87 (34-104) U/L Troponin I 0.06 H* (0-0.04) ng/ml B-Natriuretic Peptide (0-100) pg/ml Total Protein 6.8 (6.0-8.3) gm/dl Albumin 3.8 (3.4-5.0) gm/dl Globulin 3.0 (2.5-4.0) gm/dl Albumin/Globulin Ratio 1.3 (0.9-2) Urine Color Urine Appearance (Clear) Urine pH (4.5-7.5) Ur Specific [place] (1.000-1.030) Urine Protein (Negative) Urine Glucose (UA) (Negative) Urine Ketones (Negative) Urine Blood (Negative) Urine Nitrite (Negative) Urine Bilirubin (Negative) Urine Urobilinogen (Negative) Ur Leukocyte Esterase (Negative) Urine WBC (Auto) (0-5) /hpf Urine RBC (Auto) (0-4) /hpf U Hyaline Cast (Auto) (0-5) /lpf U Epithel Cells (Auto) (0-5) /lpf Urine Bacteria (Auto) (Negative) SARS-CoV-2 (PCR) (Negative) Influenza Type A (PCR) (Neg) Influenza Type B (PCR) (Neg) RSV (RT-PCR) (Neg) 12/10/21 12/10/21 12/10/21 Range/Units 04:20 04:20 04:47 WBC (4.8-10.8) K/uL RBC (4.7-6.1) M/uL Hgb (14.0-18.0) g/dL Hct (42-52) % MCV (80-100) fL MCH (25-34) pg MCHC (32-36) g/dL RDW Std Deviation (36.4-46.3) fL RDW Coeff of Natalie (11.5-14.5) % Plt Count (130-400) K/uL MPV (7.4-10.4) fL Immature Gran % (Auto) % Neut % (Auto) % Lymph % (Auto) % [place] % (Auto) % Eos % (Auto) % Baso % (Auto) % Neut # (Auto) (1.4-6.5) K/uL Lymph # (Auto) (1.2-3.4) K/uL [place] # (Auto) (0.11-0.59) K/uL Eos # (Auto) (0-0.5) K/uL Baso # (Auto) (0-0.2) K/uL Immature Gran # (Auto) (0.00-0.02) K/uL PT 10.3 INR 1.0 APTT 29.8 PTT Ratio 1.1 VBG pH 7.40 (7.36-7.41) VBG pCO2 40 (38-50) mmHg VBG pO2 39 mmHg VBG HCO3 24 mmol/L VBG O2 Saturation 68.9 % VBG Base Excess -0.3 mEq/L Barometric Pressure 731.2 mm/Hg Sodium (136-145) mmol/L Potassium (3.5-5.1) mmol/L Chloride (98-107) mmol/L Carbon Dioxide (21-32) mmol/L Anion Gap (3-11) BUN (6-23) mg/dl Creatinine (0.6-1.4) mg/dl Est Cr Clr Drug Dosing ml/min Est GFR ( Amer) ml/min Est GFR (Non-Af Amer) ml/min BUN/Creatinine Ratio (10-20) Glucose (70-99(Fasting)) mg/dl Calcium (8.5-10.1) mg/dl Total Bilirubin (0.2-1.0) mg/dl AST (13-39) U/L ALT (7-52) U/L Alkaline Phosphatase (34-104) U/L Troponin I (0-0.04) ng/ml B-Natriuretic Peptide 1159 H (0-100) pg/ml Total Protein (6.0-8.3) gm/dl Albumin (3.4-5.0) gm/dl Globulin (2.5-4.0) gm/dl Albumin/Globulin Ratio (0.9-2) Urine Color Urine Appearance (Clear) Urine pH (4.5-7.5) Ur Specific [place] (1.000-1.030) Urine Protein (Negative) Urine Glucose (UA) (Negative) Urine Ketones (Negative) Urine Blood (Negative) Urine Nitrite (Negative) Urine Bilirubin (Negative) Urine Urobilinogen (Negative) Ur Leukocyte Esterase (Negative) Urine WBC (Auto) (0-5) /hpf Urine RBC (Auto) (0-4) /hpf U Hyaline Cast (Auto) (0-5) /lpf U Epithel Cells (Auto) (0-5) /lpf Urine Bacteria (Auto) (Negative) SARS-CoV-2 (PCR) (Negative) Influenza Type A (PCR) (Neg) Influenza Type B (PCR) (Neg) RSV (RT-PCR) (Neg) 12/10/21 12/10/21 Range/Units 05:30 05:42 WBC (4.8-10.8) K/uL RBC (4.7-6.1) M/uL Hgb (14.0-18.0) g/dL Hct (42-52) % MCV (80-100) fL MCH (25-34) pg MCHC (32-36) g/dL RDW Std Deviation (36.4-46.3) fL RDW Coeff of Natalie (11.5-14.5) % Plt Count (130-400) K/uL MPV (7.4-10.4) fL Immature Gran % (Auto) % Neut % (Auto) % Lymph % (Auto) % [place] % (Auto) % Eos % (Auto) % Baso % (Auto) % Neut # (Auto) (1.4-6.5) K/uL Lymph # (Auto) (1.2-3.4) K/uL [place] # (Auto) (0.11-0.59) K/uL Eos # (Auto) (0-0.5) K/uL Baso # (Auto) (0-0.2) K/uL Immature Gran # (Auto) (0.00-0.02) K/uL PT INR APTT PTT Ratio VBG pH (7.36-7.41) VBG pCO2 (38-50) mmHg VBG pO2 mmHg VBG HCO3 mmol/L VBG O2 Saturation % VBG Base Excess mEq/L Barometric Pressure mm/Hg Sodium (136-145) mmol/L Potassium (3.5-5.1) mmol/L Chloride (98-107) mmol/L Carbon Dioxide (21-32) mmol/L Anion Gap (3-11) BUN (6-23) mg/dl Creatinine (0.6-1.4) mg/dl Est Cr Clr Drug Dosing ml/min Est GFR ( Amer) ml/min Est GFR (Non-Af Amer) ml/min BUN/Creatinine Ratio (10-20) Glucose (70-99(Fasting)) mg/dl Calcium (8.5-10.1) mg/dl Total Bilirubin (0.2-1.0) mg/dl AST (13-39) U/L ALT (7-52) U/L Alkaline Phosphatase (34-104) U/L Troponin I (0-0.04) ng/ml B-Natriuretic Peptide (0-100) pg/ml Total Protein (6.0-8.3) gm/dl Albumin (3.4-5.0) gm/dl Globulin (2.5-4.0) gm/dl Albumin/Globulin Ratio (0.9-2) Urine Color Yellow Urine Appearance Clear (Clear) Urine pH 5.5 (4.5-7.5) Ur Specific [place] 1.012 (1.000-1.030) Urine Protein 3+ H (Negative) Urine Glucose (UA) Negative (Negative) Urine Ketones Negative (Negative) Urine Blood Trace H (Negative) Urine Nitrite Negative (Negative) Urine Bilirubin Negative (Negative) Urine Urobilinogen Negative (Negative) Ur Leukocyte Esterase Negative (Negative) Urine WBC (Auto) 1-5 (0-5) /hpf Urine RBC (Auto) 0-4 (0-4) /hpf U Hyaline Cast (Auto) 1-5 (0-5) /lpf U Epithel Cells (Auto) 10-20 H (0-5) /lpf Urine Bacteria (Auto) Negative (Negative) SARS-CoV-2 (PCR) NEGATIVE (Negative) Influenza Type A (PCR) Negative (Neg) Influenza Type B (PCR) Negative (Neg) RSV (RT-PCR) Negative (Neg) Administered Medications Discontinued Medications Furosemide (Furosemide 40 Mg/4 Ml Vial) 40 mg IV ONE ONE Stop: 12/10/21 05:10 Last Admin: 12/10/21 05:20 Dose: 40 mg Documented by: [id number] Nitroglycerin (Nitroglycerin Sl 0.4 Mg/Tab Tab) 0.4 mg SL NOW STA Stop: 12/10/21 05:15 Last Admin: 12/10/21 05:22 Dose: 0.4 mg Documented by: [id number] Imaging Data Radiologist's Impression: Chest X-Ray 12/10/21 04:03 XR chest 1V portable CLINICAL HISTORY: Dyspnea. COMPARISON STUDY: 02/25/2014 TECHNIQUE: 1 view of the chest FINDINGS: Single frontal view of the chest demonstrates the heart size to be mildly enlarged status post previous cardiothoracic surgery. Compared to previous examination, there is a decreased inspiratory effort with elevation of hemidiaphragms. There is a confluent alveolar opacity involving the right lower lobe most characteristic of lobar pneumonia. There is also blunting of the right costophrenic angle characteristic of a small right pleural effusion. There is no definite left pleural effusion. There is no evidence for vascular congestion. There is no acute osseous pathology. IMPRESSION: Decreased inspiration with alveolar opacity at the right lung base characteristic of a lobar pneumonia. There is a small associated right pleural effusion as well. ACT 112: Negative or not required by law. Electronically signed by: Dennis Gutiérrez M.D. 12/10/2021 7:40 AM Discharge Plan Visit Data Chief Complaint: Shortness of Breath/Dyspnea Stated Complaint: SOB ED Provider: Isaias Falk Discharge Problem: OLIVEROS (dyspnea on exertion) Forms Stand Alone Forms: My [facility] Prescriptions Prescriptions: No Action losartan-hydrochlorothiazide 100-25 mg tablet 1 tab PO DAILY Qty: 90 RF: 3 metoprolol succinate 100 mg tablet extended release 24 hr 100 mg PO DAILY Qty: 90 RF: 3 amlodipine 10 mg tablet 10 mg PO DAILY Qty: 90 RF: 3 atorvastatin 80 mg tablet 80 mg PO DAILY Qty: 90 RF: 3 omega-3 fatty acids 1,250 mg capsule 1,250 mg PO DAILY Qty: 30 RF: 5 nitroglycerin 0.4 mg tablet, sublingual 0.4 mg SL .COMPLEX Qty: 25 RF: 5 aspirin [Enteric Coated Aspirin] 81 mg tablet,delayed release (DR/EC) 81 mg PO DAILY Qty: 90 RF: 3 ferrous sulfate 325 mg (65 mg iron) tablet 325 mg PO BID RF: 0 Anoro Ellipta 62.5-25 mcg/actuation Blister With Device 1 inh INHALATION DAILY RF: 0 albuterol sulfate 90 mcg/actuation Aero Powdr Breath Act W/Sensor 1 inh INHALATION Q4H RF: 0 cholecalciferol (vitamin D3) 1,000 unit capsule 1,000 units PO DAILY RF: 0 fesoterodine 4 mg tablet extended release 24 hr 4 mg PO DAILY RF: 0 Referrals Referrals: [facility] MILL[facility] [Primary Care Provider] -
[2021-12-10 04:31] LABS: Basophils # (auto) 0.04 K/uL (0-0.2); Basophils % (auto) 0.4 %; Eosinophils % (auto) 5.1 %; Hematocrit (blood only) 35.4 % (42-52); Hemoglobin 12.1 g/dL (14.0-18.0); Immature Granulocytes # (auto) 0.01 K/uL (0.00-0.02); Immature Granulocytes % (auto) 0.1 %; Lymphocytes # (auto) 1.72 K/uL (1.2-3.4); Lymphocytes % (auto) 17.7 %; Mean Corpuscular Hemoglobin 30.8 pg (25-34); Mean Corpuscular Hgb Conc 34.2 g/dL (32-36); Mean Corpuscular Volume 90.1 fL (80-100); Mean Platelet Volume 12.6 fL (7.4-10.4); Monocytes # (auto) 0.97 K/uL (0.11-0.59); Neutrophils # (auto) 6.48 K/uL (1.4-6.5); Neutrophils % (auto) 66.7 %; Platelet Count 250 K/uL (130-400); RDW Coefficient of Variation 12.7 % (11.5-14.5); RDW Standard Deviation 41.7 fL (36.4-46.3); Red Blood Count 3.93 M/uL (4.7-6.1); White Blood Count 9.72 K/uL (4.8-10.8)
[2021-12-10 04:42] LABS: Albumin Globulin Ratio 1.3 (0.9-2); Albumin Level 3.8 gm/dl (3.4-5.0); BUN Creatinine Ratio 20.7 (10-20); Bilirubin,Total 0.5 mg/dl (0.2-1.0); Calcium 9.5 mg/dl (8.5-10.1); Creatinine Clr Calc Pharmacy 27.7 ml/min; Est GFR (African American) 29.2 ml/min; Est GFR (Non-African American) 25.2 ml/min; Total Protein 6.8 gm/dl (6.0-8.3)
[2021-12-10 04:50] LABS: Base Excess VBG -0.3 mEq/L; Oxygen Saturation VBG 68.9 %; pH VBG 7.4 (7.36-7.41)
[2021-12-10] MEDS ORDERED: FUROSEMIDE 40 MG/4 ML VIAL IV ONE ×2 (05:09→14:53)
[2021-12-10] MEDS ORDERED: NITROGLYCERIN SL 0.4 MG/TAB TAB SL STA (05:14)
[2021-12-10 05:27] LABS: Partial Thromboplastin Ratio 1.1; Partial Thromboplastin Time 29.8 Seconds (21.0-31.0); Prothrombin Time 10.3 Seconds (9.0-12.0)
[2021-12-10 05:34] LABS: Troponin I 0.06 ng/ml (0-0.04)
[2021-12-10 06:15] LABS: Appearance Urine Clear (Clear); Bacteria Urine Automated Negative (Negative); Bilirubin Urine Negative (Negative); Blood Urine Trace (Negative); Color Urine Yellow; Glucose Urine UA Negative (Negative); Ketones Urine Negative (Negative); Leukocyte Esterase Urine Negative (Negative); Nitrite Urine Negative (Negative); Protein Urine 3+ (Negative); RBC Urine Automated 0-4 /hpf (0-4); Specific Gravity Urine 1.012 (1.000-1.030); Urobilinogen Urine Negative (Negative); pH Urine 5.5 (4.5-7.5)
--- NOTE | 2021-12-10 06:16 | History & Physical Report ---
Date of Service December 10, 2021 Assessment & Plan (1) Shortness of breath: Plan: This is an 81-year-old male with a notable past medical history including CAD s/p CABG in 2004, PAD, childhood asthma, hypertension, CKD 3, restrictive lung disease, prostate cancer, obstructive sleep apnea requiring CPAP qHS, obesity, carotid stenosis, COPD, anemia, pulmonary nodule who presents to [facility] for evaluation of shortness of breath, subsequently found to be hypervolemic on arrival. Not hypoxic. Shortness of Breath - Patient's presentation is concerning for hypervolemia in the setting of known coronary disease, CKD -- no h/o hepatic disease, albumin is acceptable - Negative COVID, Flu swabs. No white count. Afebrile. No cough. Procal pending -- lower suspicion for infectious etiology at present - COPD noted - CXR does appear to demonstrate pulmonary edema, vascular congesiton, possibly effusion on R side - await official read - Last TTE 06/2018 - LVEF 65-70%, mild cLVH, "no hemodynamically significant valvular aortic stenosis." Negative stress TTE. - Received Lasix x1 in the ED - Check BMP at 1300, consider repeat dose in the afternoon - Check TTE today - Daily weights, measure intake and output; consider Sorensen catheter as needed - Patient's history of hypertension is noted with this regard; further management will be needed - If clinical picture continues to appear unclear, could consider non-contrast CT - Left upper extremity in context of shortness of breath is noted; lower suspicion for PE at present, but considered as a possibility. Await ultrasound. Consider VQ scan. - Maintain SpO2 > 92% (2) Elevated troponin: Plan: Patient with significant CAD requiring CABG in 2014. Mildly elevated on admission (0.06) -- no chest symptoms within last few days, or within the ER Primarily suspect secondary to demand at this time If increasing, consider starting heparin gtt ECG without new conduction or repolarization changes compared to several years a go TTE, as above (3) Murmur: Plan: Appreciated at the right upper sternal border; has a crescendo decrescendo quality, suspect . Echo ordered as above. (4) Left upper extremity swelling: Plan: May be secondary to hypervolemia / suspected CHF, as above, but will order Doppler to rule out DVT; patient denies any history of surgery on this side or active pain on admission (5) Swelling of both lower extremities: Plan: 1+ LE edema that appears equal bilaterally with superimposed venous stasis dermatitis MARLI stockings Diuresis, as above (6) COPD (chronic obstructive pulmonary disease) with emphysema: Plan: GOLD class unknown at this time Reports h/o cigar use for "many years" but quit >years ago -- has been told he has dx of COPD Uses Anoro at home -- continue while here Does not appear to be in COPD exacerbation at present based on exam Marianela p.r.nTanya (7) CAD, multiple vessel: Plan: h/o CAD s/p CABGx4 in 2015 Continue statin, ASA, metoprolol, ARB (8) Hypertension: Plan: continue metoprolol continue losartan hydrochlorothiazide continue amlodipine. can consider adding on PRN hydralazine for SBPs >160 (9) Stage 3 chronic kidney disease: Plan: appears to be at baseline kidney function on admission labs (Cr 2.1 - 2.3 within the last year) Follows with Dr. Kevin FINNEGAN Nephrology Monitor BMP with ongoing diuresis History of Present Illness Primary Care Provider: [facility] This is an 81-year-old male with a notable past medical history including CAD s/p CABG in 2004, PAD, childhood asthma, hypertension, CKD 3, restrictive lung disease, prostate cancer, obstructive sleep apnea requiring CPAP qHS, obesity, carotid stenosis, COPD, anemia, pulmonary nodule who presents to [facility] for evaluation of shortness of breath. Patient says that over the last several years, he has had some baseline level shortness of breath with exertion. However, over the last several months, has become progressively worse. Has been more noticeable over the last few nights. He endorses shortness of breath with exertion. He says that it is easier to breathe when he is propped up versus lying down. He denies any chest pain, palpitations. Denies any abdominal fullness. Denies any fevers, chills, night sweats, cough. He also adds that he has noticed that his left arm has been swollen over the last day. He denies any pain associated with this. He denies any previous shoulder or arm surgeries. He denies any history of liver problems he does endorse drinking alcohol 01/17/1991, whereby he quit. He does endorse a history of smoking cigars, but "never inhaling." He has not utilized these over the last several years. He does endorse a history of COPD, for which he takes Anoro daily. In the ER, patient was found to be hypertensive to 190/70 with RR 28. Oxygen saturation was 91 to 93% on room air. Labs were significant for persistent anemia at 12.1. No leukocytosis. VBG normal-appearing at: pH 7.4/PCO2 40/PO2 39/P HCO3 24. BMP revealing a BUN 48/creatinine 2.32 (baseline Cr over last year appears 2.0-2.3). Troponin elevated 0.06. BNP 1159. Urine studies pending. Pro-Yoshi pending. Covid/flu pending. My read of the chest x-ray does demonstrate appreciable opacity in the right lower lobe, as well as along the mediastinum; there appears to be pulmonary vascular congestion. ECG demonstrated lengthening of the HI interval to 238 (from 202) ms, now appearing to be first-degree block, as well as lengthening of the QT interval at 491 mscompared to EKG from 2014; no repolarization abnormalities I could appreciate. Patient was given nitroglycerin once upon arrival in the ER and Lasix 40mg IV x 1. Allergies Allergy/AdvReac Type Severity Reaction Status Date / Time amlodipine Allergy Unknown Unverified 12/10/21 07:26 aspirin Allergy Unknown Unverified 12/10/21 07:26 atorvastatin Allergy Unknown Unverified 12/10/21 07:26 Home Medications Medication Instructions Recorded Confirmed Type nitroglycerin 0.4 mg sublingual 0.4 mg SL .COMPLEX #25 tab 04/14/19 09/17/21 Rx tablet omega-3 fatty acids 1,250 mg 1,250 mg PO DAILY #30 cap 04/14/19 09/17/21 Rx capsule aspirin 81 mg tablet,delayed 81 mg PO DAILY #90 tab 04/18/19 09/17/21 Rx release (Enteric Coated Aspirin) ferrous sulfate 325 mg (65 mg 325 mg PO BID tab 05/31/19 09/17/21 History iron) tablet losartan 100 1 tab PO DAILY #90 tab 10/04/20 09/17/21 Rx mg-hydrochlorothiazide 25 mg tablet metoprolol succinate 100 mg 100 mg PO DAILY #90 tab 10/16/20 09/17/21 Rx tablet,extended release 24 hr amlodipine 10 mg tablet 10 mg PO DAILY #90 tab 10/30/20 09/17/21 Rx atorvastatin 80 mg tablet 80 mg PO DAILY #90 tab 06/06/21 09/17/21 Rx albuterol sulfate 90 mcg/actuation 1 inh INHALATION Q4H 12/10/21 12/10/21 History breath activated powder inhaler,sensor cholecalciferol (vitamin D3) 25 1,000 units PO DAILY 12/10/21 12/10/21 History mcg (1,000 unit) capsule fesoterodine 4 mg tablet,extended 4 mg PO DAILY 12/10/21 12/10/21 History release 24 hr umeclidinium 62.5 mcg-vilanterol 1 inh INHALATION DAILY 12/10/21 12/10/21 History 25 mcg/actuation powdr for inhalation (Anoro Ellipta) 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 Hypertension Impaired fasting glucose Proteinuria Sensorineural hearing loss (SNHL) of both ears SNHL (sensorineural hearing loss) Stage 3 chronic kidney disease Surgical History History of cataract surgery History of colonoscopy History of prostate surgery Hx of CABG S/P hip replacement Family History Denies family history of Ovarian cancer Prostate cancer Kidney disease Myocardial infarction Breast cancer Colorectal cancer Social History Smoking Status: Former smoker Tobacco Type: Cigars Age Started Using Tobacco: 24; Age Quit Using Tobacco: 49; Second Hand Exposure: No; Hx Alcohol Use: No Hx Substance Use: No Preferred Language: Belarusian Communication Ability: Effective Visual Impairment: Limited Hearing Ability: Use of Hearing Aid Skip Hoist Operator Required: No marital status: / Current Living Situation: Alone current occupational status: 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 Does not appear toxic. HEENT: NCAT. - Eyes - Sclera are white, anicteric, and without injection. PERRL. - Mouth - MMM with no tonsillar edema or exudates. - Neck - supple and without LAD. He does have notable jugular venous prominence extending approximately 2 fingerbreadths above the right clavicle at about 40 degrees. Cardiac: Normal rate and regular rhythm; S1 and S2 present with grade 2 out of 6 systolic ejection murmur best heard at the right upper sternal border. Pulmonary: Good respiratory effort with symmetric expansion of the chest. No use of accessory muscles. Lung sounds are diminished, but somewhat occluded by habitus. There does appear to be crackles at the bases bilaterally. No appreciable wheezes. Abdominal: Normoactive bowel sounds. Abdomen was soft but mildly distended. Extremities: There is 1+ pitting edema in the lower extremities bilaterally with associated erythema over the anterior shins. The left upper extremity also does appear full when compared to the right upper extremity. There is no pitting edema in upper extremities. Results & Data Results & Data ([facility]) Vital Signs (Past 12 Hours) Vital Signs Temp Pulse Pulse Resp BP BP Pulse Ox 12/10/21 06:05 59 L 28 H 189/94 H 91 12/10/21 05:19 62 22 193/76 H 92 12/10/21 04:06 93 12/10/21 03:51 36.6 C 63 27 H 209/88 H 93 Laboratory Results Laboratory Results WBC 9.72 K/uL (4.8-10.8) 12/10/21 03:55 RBC 3.93 M/uL (4.7-6.1) L 12/10/21 03:55 Hgb 12.1 g/dL (14.0-18.0) L 12/10/21 03:55 Hct 35.4 % (42-52) L 12/10/21 03:55 MCV 90.1 fL (80-100) 12/10/21 03:55 MCH 30.8 pg (25-34) 12/10/21 03:55 MCHC 34.2 g/dL (32-36) 12/10/21 03:55 RDW Std Deviation 41.7 fL (36.4-46.3) 12/10/21 03:55 RDW Coeff of Natalie 12.7 % (11.5-14.5) 12/10/21 03:55 Plt Count 250 K/uL (130-400) 12/10/21 03:55 MPV 12.6 fL (7.4-10.4) H 12/10/21 03:55 Immature Gran % (Auto) 0.1 % 12/10/21 03:55 Neut % (Auto) 66.7 % 12/10/21 03:55 Lymph % (Auto) 17.7 % 12/10/21 03:55 [place] % (Auto) 10.0 % 12/10/21 03:55 Eos % (Auto) 5.1 % 12/10/21 03:55 Baso % (Auto) 0.4 % 12/10/21 03:55 Neut # (Auto) 6.48 K/uL (1.4-6.5) 12/10/21 03:55 Lymph # (Auto) 1.72 K/uL (1.2-3.4) 12/10/21 03:55 [place] # (Auto) 0.97 K/uL (0.11-0.59) H 12/10/21 03:55 Eos # (Auto) 0.50 K/uL (0-0.5) 12/10/21 03:55 Baso # (Auto) 0.04 K/uL (0-0.2) 12/10/21 03:55 Immature Gran # (Auto) 0.01 K/uL (0.00-0.02) 12/10/21 03:55 PT 10.3 Seconds (9.0-12.0) 12/10/21 04:47 INR 1.0 (0.9-1.1) 12/10/21 04:47 APTT 29.8 Seconds (21.0-31.0) 12/10/21 04:47 PTT Ratio 1.1 12/10/21 04:47 VBG pH 7.40 (7.36-7.41) 12/10/21 04:20 VBG pCO2 40 mmHg (38-50) 12/10/21 04:20 VBG pO2 39 mmHg 12/10/21 04:20 VBG HCO3 24 mmol/L 12/10/21 04:20 VBG O2 Saturation 68.9 % 12/10/21 04:20 VBG Base Excess -0.3 mEq/L 12/10/21 04:20 Barometric Pressure 731.2 mm/Hg 12/10/21 04:20 Sodium 139 mmol/L (136-145) 12/10/21 03:55 Potassium 4.0 mmol/L (3.5-5.1) 12/10/21 03:55 Chloride 107 mmol/L (98-107) 12/10/21 03:55 Carbon Dioxide 24 mmol/L (21-32) 12/10/21 03:55 Anion Gap 8 (3-11) 12/10/21 03:55 BUN 48 mg/dl (6-23) H 12/10/21 03:55 Creatinine 2.32 mg/dl (0.6-1.4) H 12/10/21 03:55 Est Cr Clr Drug Dosing 27.7 ml/min 12/10/21 03:55 Est GFR ( Amer) 29.2 ml/min 12/10/21 03:55 Est GFR (Non-Af Amer) 25.2 ml/min 12/10/21 03:55 BUN/Creatinine Ratio 20.7 (10-20) H 12/10/21 03:55 Glucose 103 mg/dl (70-99(Fasting)) H 12/10/21 03:55 Calcium 9.5 mg/dl (8.5-10.1) 12/10/21 03:55 Total Bilirubin 0.5 mg/dl (0.2-1.0) 12/10/21 03:55 AST 15 U/L (13-39) 12/10/21 03:55 ALT 15 U/L (7-52) 12/10/21 03:55 Alkaline Phosphatase 87 U/L (34-104) 12/10/21 03:55 Troponin I 0.06 ng/ml (0-0.04) H* 12/10/21 03:55 B-Natriuretic Peptide 1159 pg/ml (0-100) H 12/10/21 04:20 Total Protein 6.8 gm/dl (6.0-8.3) 12/10/21 03:55 Albumin 3.8 gm/dl (3.4-5.0) 12/10/21 03:55 Globulin 3.0 gm/dl (2.5-4.0) 12/10/21 03:55 Albumin/Globulin Ratio 1.3 (0.9-2) 12/10/21 03:55 Urine Color Yellow 12/10/21 05:42 Urine Appearance Clear (Clear) 12/10/21 05:42 Urine pH 5.5 (4.5-7.5) 12/10/21 05:42 Ur Specific [place] 1.012 (1.000-1.030) 12/10/21 05:42 Urine Protein 3+ (Negative) H 12/10/21 05:42 Urine Glucose (UA) Negative (Negative) 12/10/21 05:42 Urine Ketones Negative (Negative) 12/10/21 05:42 Urine Blood Trace (Negative) H 12/10/21 05:42 Urine Nitrite Negative (Negative) 12/10/21 05:42 Urine Bilirubin Negative (Negative) 12/10/21 05:42 Urine Urobilinogen Negative (Negative) 12/10/21 05:42 Ur Leukocyte Esterase Negative (Negative) 12/10/21 05:42 Urine WBC (Auto) 1-5 /hpf (0-5) 12/10/21 05:42 Urine RBC (Auto) 0-4 /hpf (0-4) 12/10/21 05:42 U Hyaline Cast (Auto) 1-5 /lpf (0-5) 12/10/21 05:42 U Epithel Cells (Auto) 10-20 /lpf (0-5) H 12/10/21 05:42 Urine Bacteria (Auto) Negative (Negative) 12/10/21 05:42 SARS-CoV-2 (PCR) NEGATIVE (Negative) 12/10/21 05:30 Influenza Type A (PCR) Negative (Neg) 12/10/21 05:30 Influenza Type B (PCR) Negative (Neg) 12/10/21 05:30 RSV (RT-PCR) Negative (Neg) 12/10/21 05:30 Supervising Physician Co-Signing Physician Notes Patient seen and examined, chart reviewed, case discussed with Dr. Arroyo and I agree with the assessment and plan as documented above. In brief, patient is an 81yo male with history of CAD, COPD presenting with progressive SOB. Hypertensive on arrival On exam he is afebrile, hypertensive with BP of 210/81 - confirmed on repeat in the room Skin - pale, thickened and shiny on bilateral LE HEENT -NC/AT, PERRL, MMM, Neck supple Heart - +S1/S2, regular Lungs - +Crackles to mid lung field Abd - +BS, soft, NT/ND Ext - warm, well perfused, no clubbing/cyanosis or edema Neuro - No focal deficits Labs and images reviewed - significant for elevated BNP 1159, Troponin = 0.06, BUN of 48 and Cr=2.32 which is near baseline CXR with bilateral airspace opacities, apparent pleural effusion on right Assessment/Plan - 81yo male with history of CAD, COPD presenting with SOB. Suspect acute exacerbation of CHF, volume overload. Hypertension contributing -Admit to medical with telemetry -Lasix administered - consider repeat chemistry in afternoon to assess renal function - repeat dosing -BP control - continue home medications, Hydralazine PRN -Trend troponin -Remainder of plan as above
[2021-12-10 06:22] LABS: Influenza A virus by PCR Negative (Neg); Influenza B virus by PCR Negative (Neg); RSV by PCR Negative (Neg); SARS CoV2 RNA(COVID-19) InHosp NEGATIVE (Negative)
[2021-12-10] MEDS ORDERED: ACETAMINOPHEN 325 MG TAB PO PRN (06:33)
--- NOTE | 2021-12-10 07:00 | Billing Data ---
Date of Service December 10, 2021 Coding Level of Care Code 93459 Initial Inpt Care Lvl 3
--- NOTE | 2021-12-10 07:37 | Hospitalist Progress Note ---
Date of Service December 10, 2021 Assessment & Plan (1) Shortness of breath: Plan: 81 y/o M w/ PMHx of CAD s/p CABG, HTN, CKD, CHF, COPD (cigar smoker) who presents presents from [facility]. w/ 2 months of worsening dyspnea on exertion. On exam, no wheezing, though he is taking slightly heavier breaths. RLL crackles. copd exac less likely RLL opacity? procalc pending hypervolemia. diuresing - Patient's presentation is concerning for hypervolemia in the setting of known coronary disease, CKD -- no h/o hepatic disease, albumin is acceptable - Negative COVID, Flu swabs. No white count. Afebrile. No cough. Procal pending -- lower suspicion for infectious etiology at present - Last TTE 06/2018 - LVEF 65-70%, mild cLVH, "no hemodynamically significant valvular aortic stenosis." Negative stress TTE. - Received Lasix x1 in the ED - Check BMP at 1300, consider repeat dose in the afternoon - Check TTE today - Daily weights, measure intake and output; consider Sorensen catheter as needed - Patient's history of hypertension is noted with this regard; further management will be needed - If clinical picture continues to appear unclear, could consider non-contrast CT - Left upper extremity in context of shortness of breath is noted; lower suspicion for PE at present, but considered as a possibility. Await ultrasound. Consider VQ scan. No evidence of infectious etiology at present, however, Covid/flu/pro-Yoshi are pending; add MRSA swab Patient will require confirmation of home medications (2) Elevated troponin: Plan: Patient with significant CAD requiring CABG in 2014. Mildly elevated on admission (0.06) -- no chest symptoms within last few days, or within the ER Primarily suspect secondary to demand at this time If increasing, consider starting heparin gtt ECG without new conduction or repolarization changes compared to several years ago TTE, as above (3) Murmur: Plan: Appreciated at the right upper sternal border; has a crescendo decrescendo quality, suspect . Echo ordered as above. (4) Left upper extremity swelling: Plan: May be secondary to hypervolemia / suspected CHF, as above, but will order Doppler to rule out DVT; patient denies any history of surgery on this side or active pain on admission (5) Swelling of both lower extremities: Plan: 1+ LE edema that appears equal bilaterally with superimposed venous stasis dermatitis MARLI stockings Diuresis, as above (6) COPD (chronic obstructive pulmonary disease) with emphysema: Plan: GOLD class unknown at this time Reports h/o cigar use for "many years" but quit >years ago -- has been told he has dx of COPD Uses Anoro at home -- continue while here Does not appear to be in COPD exacerbation at present based on exam Marianela [email or web address] (7) CAD, multiple vessel: Plan: h/o CAD s/p CABGx4 in 2015 Continue statin, ASA, metoprolol, ARB (8) Hypertension: Plan: continue metoprolol continue losartan hydrochlorothiazide continue amlodipine. can consider adding on PRN hydralazine for SBPs >160 (9) Stage 3 chronic kidney disease: Plan: appears to be at baseline kidney function on admission labs (Cr 2.1 - 2.3 within the last year) Follows with Dr. Kevin Cordon [facility] Monitor BMP with ongoing diuresis Subjective 2 months of worsening OLIVEROS. Has had covid booster. Denies illness ROS such as fever/chils. Per chart review 10 lb wt gain vs 09/2021. Former cigar smoker. Denies use of lasix. Last meds yesterday. [facility]. Denies hx of blood clots. Does not use rescue inhaler. States aspirates on saliva, but does ok w/ food. Review of Systems Review of Systems: All systems reviewed & are unremarkable except as noted in HPI & below Physical Exam Physical Exam: General: Grossly A&O. NAD. Cooperative. HEENT: Atraumatic, normocephalic. EOMI. + JVD on right, 2 finger breadths above clavicle. 45 deg. Pulm: Faint insp crackles RLE. No respiratory distress. Slight heavier breathing, but states better than earlier. Cardiac: RRR. 2/6 systolic murmur loudest at pulmonic region. 3+ ble Abdominal: Nontender, nondistended, soft. Obese abd. Slightly tympanitic to percussion. Msk: L hand slightly swollen x 1 day. Results & Data Results & Data ([facility]) Vital Signs (Past 12 Hours) Vital Signs Temp Pulse Pulse Resp BP BP Pulse Ox 12/10/21 06:42 64 27 H 210/81 H 92 12/10/21 06:05 59 L 28 H 189/94 H 91 12/10/21 05:19 62 22 193/76 H 92 12/10/21 04:06 93 12/10/21 03:51 36.6 C 63 27 H 209/88 H 93 Resident Activity Tracking Resident Involvement: Resident Care Provided Care Provided: Adult Hospital Medicine
[2021-12-10] MEDS ORDERED: METOPROLOL TARTRATE 50 MG TAB PO STA (07:40)
--- NOTE | 2021-12-10 07:41 | XRay Report ---
XR chest 1V portable CLINICAL HISTORY: Dyspnea. COMPARISON STUDY: 02/25/2014 TECHNIQUE: 1 view of the chest FINDINGS: Single frontal view of the chest demonstrates the heart size to be mildly enlarged status post previo us cardiothoracic surgery. Compared to previous examination, there is a decreased inspiratory effort with elevation of hemidiaphragms. There is a confluent alveolar opacity involving the right lower lob e most characteristic of lobar pneumonia. There is also blunting of the right costophrenic angle dolores acteristic of a small right pleural effusion. There is no definite left pleural effusion. There is no evidence for vascular congestion. There is no acute osseous pathology. IMPRESSION: Decreased inspiration with alveolar opacity at the right lung base characteristic of a lo bar pneumonia. There is a small associated right pleural effusion as well. ACT 112: Negative or not required by law. Electronically signed by: Dennis Gutiérrez M.D. 12/10/2021 7:40 AM
[2021-12-10] MEDS ORDERED: METOPROLOL TARTRATE 25 MG TAB PO STA (07:45)
--- NOTE | 2021-12-10 09:03 | Ultrasound Report ---
LEFT UPPER EXTREMITY VENOUS DOPPLER ULTRASOUND CLINICAL HISTORY: Left upper extremity swelling. COMPARISON STUDY: No previous studies for comparison. TECHNIQUE: Sonography of the deep venous system of the left upper extremity was performed. FINDINGS: The left internal jugular, subclavian, axillary, brachial, radial and ulnar veins are paten t. IMPRESSION: No deep venous thrombus within the left upper extremity. ACT 112: Negative or not required by law. Electronically signed by: Gopi Huntley M.D. 12/10/2021 9:01 AM
[2021-12-10] MEDS ORDERED: amLODIPine BESYLATE 5 MG TAB PO SCH (09:40)
[2021-12-10] MEDS ORDERED: NITROGLYCERIN SL 0.4 MG/TAB TAB SL PRN (09:40)
[2021-12-10] MEDS ORDERED: hydrALAZINE HCL 20 MG/ML VIAL IV PRN (09:40)
--- NOTE | 2021-12-10 10:22 | Medical Student Progress Note ---
Date of Service December 10, 2021 Assessment & Plan (1) OLIVEROS (dyspnea on exertion): Plan: This is an 81-year-old male with a history of CAD s/p CABG in 2003, hypertension, CKD 3, ETENA requiring CPAP, and COPD who presents with new-onset shortness of breath. 1. Acute-onset diastolic heart failure - Patient's presentation concerning for hypervolemia in the setting of known coronary disease, CKD - improvement of dyspnea s/p 40 IV mg furosemide - additional 40 IV mg furosemide, re-assess in AM - monitor Is and Os, check daily weights - Last TTE 06/2018 - LVEF 65-70%, diastolic dysfunction - TTE pending - CXR shows opacity at the right lung base concerning for pneumonia and a small right pleural effusion - COVID, flu, RSV negative 2. Elevated troponin: - Patient with significant CAD requiring CABG in 2003 - Mildly elevated on admission (0.06) -- no chest symptoms within last few days, or within the ER - Primarily suspect secondary to demand at this time - ECG without new conduction or repolarization changes compared to several years ago - TTE, as above 3. Left upper extremity swelling: - May be secondary to hypervolemia / suspected CHF, as above - Doppler shows no DVT 4. Hypertension: - BPs have been high - hold home amlodipine in setting of fluid overload - switch metoprolol to carvedilol for better BP control - continue home losartan/HCTZ 5. COPD (chronic obstructive pulmonary disease): - Does not appear to be in COPD exacerbation at present based on exam - Continue home Anoro - DuoNebs p.r.n. 6. CAD, multiple vessel: - h/o CAD s/p CABGx4 in 2003 - continue home statin, aspirin, ARB, and beta leighann 7. CKD stage 3: - Cr 2.32, at baseline (Cr 2.1 - 2.3 within the last year) - Follows with nephro 8. TEENA: - patient is compliant with CPAP at home - start CPAP in hospital FEN/GI: Heart-healthy diet, fluid and salt restriction Code status: Full code DVT Prophylaxis: Heparin (2) CAD, multiple vessel: (3) COPD (chronic obstructive pulmonary disease) with emphysema: (4) Stage 3 chronic kidney disease: (5) Elevated troponin: Admission and Anticipated Discharge Date Admission Date: December 10, 2021 Supervising Attestation Medical Student Supervision Note: I was personally present during medical student patient encounter and independently interviewed and examined the patient and verified the macedo history and physical, reviewed labs and image studies, discussed the case with Eli Aguiar and agree with the findings and care plan. IV diuresis for fluid overload d/c amlodipine. Aggressive BP control - titrate other antihypertensives limit salt intake Subjective William says his dyspnea has significantly improved. He denies chest pain, chest tightness, cough, fevers, chills. He feels his arms and legs are less swollen than they were before. Denies past diuretic use. Lives at [facility]. He says that he used to see Dr. Partida for cardiology follow-up. Review of Systems Review of Systems: per HPI Physical Exam Constitutional: WD/WN, vitals as above Eyes: PERRL, conjunctivae normal, anicteric sclerae ENMT: external ear and nose normal, oropharynx normal Neck: trachea midline, no thyromegaly Respiratory: normal respiratory effort, lungs clear to auscultation does not use accessory muscles Auscultation: no crackles Cardiovascular: RRR, no murmur, no edema Gastrointestinal (Abdomen): normal bowel sounds, soft, nontender, no hepatosplenomegaly Musculoskeletal: Nonpitting BLE edema Results & Data ([facility]) Vital Signs (Past 12 Hours) Vital Signs Temp Pulse Pulse Pulse Resp BP BP 12/10/21 09:44 36.5 C 63 18 218/83 H 12/10/21 09:00 36.5 C 63 18 12/10/21 08:46 65 20 199/100 H 12/10/21 06:42 64 27 H 12/10/21 06:05 59 L 28 H 12/10/21 05:19 62 22 12/10/21 04:06 12/10/21 03:51 36.6 C 63 27 H 209/88 H BP Pulse Ox 12/10/21 09:44 209/89 H 92 12/10/21 09:00 209/89 H 92 12/10/21 08:46 92 12/10/21 06:42 210/81 H 92 12/10/21 06:05 189/94 H 91 12/10/21 05:19 193/76 H 92 12/10/21 04:06 93 12/10/21 03:51 93
[2021-12-10] MEDS: ATORVASTATIN 40 MG TAB PO SCH (10:37)
[2021-12-10] MEDS: CHOLECALCIFEROL 1,000 UNITS 25 MCG TAB PO SCH (10:37)
[2021-12-10] MEDS: HEPARIN SOD 5,000 UNIT/0.5 ML VIAL SQ SCH ×2 (10:37→19:58)
[2021-12-10] MEDS: FERROUS SULFATE 325 MG TAB PO SCH ×2 (10:37→19:58)
[2021-12-10] MEDS: ASPIRIN 81 MG ECTAB PO SCH (10:37)
[2021-12-10] MEDS: OMEGA-3 (PURIFIED FISH OIL) 1 GM CAP PO SCH (10:39)
[2021-12-10] MEDS: UMECLIDINIUM/VILANTEROL 62.5/25MCG 7 PUFFS/INHALER INH SCH (10:40)
[2021-12-10] MEDS ORDERED: LOSARTAN/HCTZ 50/12.5MG TAB PO SCH (11:30)
[2021-12-10 13:43] LABS: BUN Creatinine Ratio 20.6 (10-20); Calcium 9.9 mg/dl (8.5-10.1); Creatinine Clr Calc Pharmacy 27.5 ml/min; Est GFR (African American) 29.9 ml/min; Est GFR (Non-African American) 25.8 ml/min; Potassium 4.2 mmol/L (3.5-5.1)
--- NOTE | 2021-12-10 19:09 | XCELERA ---
[id number] \\[id number]
[2021-12-10] MEDS: carvediloL 6.25 MG TAB PO SCH (19:58)
--- NOTE | 2021-12-11 06:27 | Electrocardiogram Report ---
Test Reason : Blood Pressure : / mmHG Vent. Rate : 059 BPM Atrial Rate : 059 BPM P-R Int : 238 ms QRS Dur : 160 ms QT Int : 496 ms P-R-T Axes : 030 -68 -48 degrees QTc Int : 491 ms Sinus bradycardia with 1st degree A-V block with occasional Premature ventricular complexes Left axis deviation Right bundle branch block Abnormal ECG When compared with ECG of 18-JUN-2015 10:13, Premature ventricular complexes are now Present NC interval has increased QT has lengthened Confirmed by Audi Hall ([id number]) on 12/11/2021 6:27:20 AM Referred By: [facility] Confirmed By:Audi Hall
[2021-12-11 06:55] LABS: Basophils # (auto) 0.03 K/uL (0-0.2); Basophils % (auto) 0.3 %; Eosinophils % (auto) 4.3 %; Hematocrit (blood only) 35.7 % (42-52); Hemoglobin 12.3 g/dL (14.0-18.0); Immature Granulocytes # (auto) 0.01 K/uL (0.00-0.02); Immature Granulocytes % (auto) 0.1 %; Lymphocytes # (auto) 1.63 K/uL (1.2-3.4); Lymphocytes % (auto) 17.6 %; Mean Corpuscular Hgb Conc 34.5 g/dL (32-36); Mean Corpuscular Volume 89.9 fL (80-100); Mean Platelet Volume 12.4 fL (7.4-10.4); Monocytes # (auto) 0.85 K/uL (0.11-0.59); Monocytes % (auto) 9.2 %; Neutrophils # (auto) 6.32 K/uL (1.4-6.5); Neutrophils % (auto) 68.5 %; Platelet Count 250 K/uL (130-400); RDW Coefficient of Variation 12.8 % (11.5-14.5); Red Blood Count 3.97 M/uL (4.7-6.1); White Blood Count 9.24 K/uL (4.8-10.8)
[2021-12-11 07:30] LABS: BUN Creatinine Ratio 20.2 (10-20); Calcium 9.3 mg/dl (8.5-10.1); Creatinine Clr Calc Pharmacy 25.9 ml/min; Est GFR (African American) 28.3 ml/min; Est GFR (Non-African American) 24.5 ml/min; Potassium 4.1 mmol/L (3.5-5.1)
[2021-12-11] MEDS: HEPARIN SOD 5,000 UNIT/0.5 ML VIAL SQ SCH (08:16)
[2021-12-11] MEDS: FERROUS SULFATE 325 MG TAB PO SCH (08:16)
[2021-12-11] MEDS: carvediloL 6.25 MG TAB PO SCH (08:16)
[2021-12-11] MEDS: CHOLECALCIFEROL 1,000 UNITS 25 MCG TAB PO SCH (08:16)
[2021-12-11] MEDS: ATORVASTATIN 40 MG TAB PO SCH (08:20)
[2021-12-11] MEDS: ASPIRIN 81 MG ECTAB PO SCH (08:20)
[2021-12-11] MEDS: OMEGA-3 (PURIFIED FISH OIL) 1 GM CAP PO SCH (08:20)
[2021-12-11] MEDS: UMECLIDINIUM/VILANTEROL 62.5/25MCG 7 PUFFS/INHALER INH SCH (08:21)
--- NOTE | 2021-12-11 08:50 | Medical Student Progress Note ---
Date of Service December 11, 2021 Assessment & Plan (1) OLIVEROS (dyspnea on exertion): Plan: This is an 81-year-old male with a history of CAD s/p CABG in 2003, hypertension, CKD 3, TEENA requiring CPAP, and COPD who presents with new-onset shortness of breath which is improving with diuresis. 1. Acute-onset diastolic heart failure exacerbation - Patient's presentation concerning for fluid overload in the setting of known coronary disease, CKD, diastolic dysfunction - improvement of dyspnea s/p 40 IV mg furosemide x3 - monitor Is and Os, check daily weights - TTE 12/2021 shows LVEF 55-60%, diastolic dysfunction, same compared to last TTE 06/2018 except for new mild aortic stenosis - CXR shows opacity at the right lung base concerning for pneumonia and a small right pleural effusion - COVID, flu, RSV negative 2. Elevated troponin: - Patient with significant CAD requiring CABG in 2003 - 0.06 x2 - no chest symptoms within last few days, or within the ER - Primarily suspect secondary to demand at this time - ECG without new conduction or repolarization changes compared to several years ago - TTE, as above 3. Hypertension: - BPs have been high - hold home amlodipine in setting of fluid overload - switch metoprolol to carvedilol for better BP control - continue home losartan/HCTZ 4. Left upper extremity swelling: - per patient, improved - May be secondary to hypervolemia / suspected CHF, as above - Doppler shows no DVT 5. COPD (chronic obstructive pulmonary disease): - Does not appear to be in COPD exacerbation at present based on exam - Continue home Anoro - DuoNebs p.r.n. 6. CAD, multiple vessel: - h/o CAD s/p CABGx4 in 2003 - continue home statin, aspirin, ARB, and beta leighann 7. CKD stage 3: - Cr 2.32, at baseline (Cr 2.1 - 2.3 within the last year) - Follows with nephro 8. TEENA: - patient is compliant with CPAP at home - start CPAP in hospital FEN/GI: Heart-healthy diet, fluid and salt restriction Code status: Full code DVT Prophylaxis: Heparin (2) CAD, multiple vessel: (3) COPD (chronic obstructive pulmonary disease) with emphysema: (4) Stage 3 chronic kidney disease: (5) Elevated troponin: Admission and Anticipated Discharge Date Admission Date: December 10, 2021 Subjective Mr. Benito says he feels "about 20 times better than yesterday morning." He denies SOB, cough, fever/chills, headache, nassea/vomiting. He has been ambulating to and from the bathroom but feels he "could've walked more." He says that he has been having progressively worsening OLIVEROS prior to his hospital admission and is not sure yet if that has improved. He also says that he does not have a home oxygen requirement and is not sure if he needs the oxygen he is currently receiving in the hospital. Review of Systems Review of Systems: per HPI Physical Exam Constitutional: WD/WN, vitals as above Eyes: PERRL, conjunctivae normal, anicteric sclerae ENMT: external ear and nose normal, oropharynx normal Neck: trachea midline, no thyromegaly Respiratory: normal respiratory effort, lungs clear to auscultation does not use accessory muscles Auscultation: no crackles Cardiovascular: RRR, no murmur, no edema Gastrointestinal (Abdomen): normal bowel sounds, soft, nontender, no hepatosplenomegaly Results & Data ([facility]) Vital Signs (Past 12 Hours) Vital Signs Temp Pulse Resp BP Pulse Ox 12/11/21 07:55 36.6 C 61 16 178/81 H 95 12/10/21 22:53 36.8 C 56 L 16 186/78 H 93
[2021-12-11] MEDS ORDERED: LOSARTAN/HCTZ 50/12.5MG TAB PO SCH (09:00)
[2021-12-11] MEDS ORDERED: FUROSEMIDE 40 MG/4 ML VIAL IV SCH (09:00)
[2021-12-11] MEDS ORDERED: FUROSEMIDE 40 MG/4 ML VIAL IV STA (13:19)
--- NOTE | 2021-12-11 14:27 | Med Student Discharge Summary ---
Date of Service December 11, 2021 Admission HPI Per Admitting Provider This is an 81-year-old male with a notable past medical history including CAD s/p CABG in 2004, PAD, childhood asthma, hypertension, CKD 3, restrictive lung disease, prostate cancer, obstructive sleep apnea requiring CPAP qHS, obesity, carotid stenosis, COPD, anemia, pulmonary nodule who presents to [facility] for evaluation of shortness of breath. Patient says that over the last several years, he has had some baseline level shortness of breath with exertion. However, over the last several months, has become progressively worse. Has been more noticeable over the last few nights. He endorses shortness of breath with exertion. He says that it is easier to breathe when he is propped up versus lying down. He denies any chest pain, palpitations. Denies any abdominal fullness. Denies any fevers, chills, night sweats, cough. He also adds that he has noticed that his left arm has been swollen over the last day. He denies any pain associated with this. He denies any previous shoulder or arm surgeries. He denies any history of liver problems he does endorse drinking alcohol 01/17, whereby he quit. He does endorse a history of smoking cigars, but "never inhaling." He has not utilized these over the last several years. He does endorse a history of COPD, for which he takes Anoro daily. In the ER, patient was found to be hypertensive to 190/70 with RR 28. Oxygen saturation was 91 to 93% on room air. Labs were significant for persistent anemia at 12.1. No leukocytosis. VBG normal-appearing at: pH 7.4/PCO2 40/PO2 39/P HCO3 24. BMP revealing a BUN 48/creatinine 2.32 (baseline Cr over last year appears 2.0-2.3). Troponin elevated 0.06. BNP 1159. Urine studies pending. Pro-Yoshi pending. Covid/flu pending. My read of the chest x-ray does demonstrate appreciable opacity in the right lower lobe, as well as along the mediastinum; there appears to be pulmonary vascular congestion. ECG demonstrated lengthening of the OH interval to 238 (from 202) ms, now appearing to be first-degree block, as well as lengthening of the QT interval at 491 mscompared to EKG from 2014; no repolarization abnormalities I could appreciate. Patient was given nitroglycerin once upon arrival in the ER and Lasix 40mg IV x 1. Admission Exam (Per Admitting) Constitutional WD/WN, vitals as above Eyes PERRL, conjunctivae normal, anicteric sclerae ENMT external ear and nose normal, oropharynx normal Neck trachea midline, no thyromegaly Respiratory normal respiratory effort, lungs clear to auscultation does not use accessory muscles Auscultation: no crackles Cardiovascular RRR, no murmur, no edema Vessels: no JVD Gastrointestinal (Abdomen) normal bowel sounds, soft, nontender, no hepatosplenomegaly Psychiatric A+Ox3, euthymic affect Orientation: alert and oriented x 3 Constitutional WD/WN, vitals as above Eyes PERRL, conjunctivae normal, anicteric sclerae ENMT external ear and nose normal, oropharynx normal Neck trachea midline, no thyromegaly Respiratory normal respiratory effort, lungs clear to auscultation does not use accessory muscles Auscultation: no crackles on 2L NC Cardiovascular RRR, no murmur, no edema Vessels: no JVD Gastrointestinal (Abdomen) normal bowel sounds, soft, nontender, no hepatosplenomegaly Skin warm, dry, well-perfused Psychiatric A+Ox3, euthymic affect Orientation: alert and oriented x 3 Discharge Data Consultations 12/10/21 06:15 ED Decision to Admit Stat Hospital Course (1) OLIVEROS (dyspnea on exertion): Mr. Benito is an 81-year-old male with a history of CAD s/p CABG in 2004, hypertension, CKD 3, TEENA requiring CPAP, and COPD who presented with new-onset shortness of breath which has significantly improved with diuresis. Acute exacerbation of diastolic dysfunction - Hypervolemic on admission exam with JVD, basilar crackles, and 1+ BLE, S/P 3 doses of IV Lasix, significant improvement in dyspnea and some improvementon exam. Net neg ~2L UOP - TTE 2017 with grade 1 diastolic dysfunction. TTE 12/11/21 shows LVEF 55-60%, and new mild aortic stenosis. - CXR 12/10/21 shows opacity at the right lung base concerning for pneumonia and a small right pleural effusion, but overall suspicion for PNA is low and no abx were indicated - elevated troponin (0.06), suspect secondary to demand in the setting of diastolic dysfunction, as the patient has had no chest symptoms - plan: 40 mg PO Lasix daily until PCP visit. Recheck BMP in 1 week. Patient may need weight based diuretics in future. Consider referral to [facility] heart failure clinic. Low sodium diet. New Oxygen Requirement - patient required 2 L NC while admitted, likely secondary to fluid overload - on 2-step test, Mr. Benito desatted to 86 on exertion and required 2 L NC for exertion - home oxygen 2 L w/ exertion ordered. Reassess oxygen needs after further diuresis Hypertension - high BPs while admitted (SBP: 164-218) - amlodipine was discontinued due to potential to contribute to fluid overload - metoprolol succinate 100 mg switched to carvedilol 6.25 mg PO BID with aim of better blood pressure control - continue losartan/hctz Left upper extremity swelling - Venous Doppler 12/10/21 shows no DVT (2) CAD, multiple vessel: (3) COPD (chronic obstructive pulmonary disease) with emphysema: (4) Stage 3 chronic kidney disease: (5) Elevated troponin: (6) Diastolic CHF: (7) Hypertension: Discharge Plan Discharge Items Patient Disposition: Personal Fpc Reason For Visit: SOB,POSSIBLE CHF Discharge Diagnosis: Acute diastolic heart failure Activity: Per Instructions section Non-emergency contact: Primary Care Provider Call non-emergency contact if: you have any medication questions, your symptoms worsen and you have a fever Follow-up/Referrals: [facility] [Primary Care Provider] - Diet: Low Sodium (2gm) Addtl Attending Provider Instructions: Hi Mr. Benito, You were hospitalized for shortness of breath due to fluid overloaded. Diuretics were given to you to help remove that fluid. At the time of discharge, you were still needing oxygen with activity and so ox ygen has been arranged for you to go home with. This will be used temporarily. You will continue to take the diuretic Furosemide 40mgs daily until you see your family physician and they are able to reassess the need to continue. I have prescribed a 2 week supply. Amlodipine is being stopped since it can contribute to fluid overload. You will be taking a new medicine carvedilol and stop taking metoprolol. This will help control your blood pressures better. You will need blood test to check BMP (kidney function and electrolytes) in 1 week. I have instructed the staff at [facility] to follow a low sodium diet. Follow up with PCP at [facility] within 1 week for routine hospital discharge follow up. Consider referral to [facility]'s congestive heart failure clinic with Ruth Negron PA-C. Pending Studies at Discharge: No Stand-Alone Forms: My [facility], Smoking Cessation Skilled Items Patient informed of condition?: Yes DNR: No Discharge Level of Care: Other Communicable Disease: No Discharge Prognosis: Stable Lines: None Urinary Catheter: No Medications and DC Order Prescriptions: New carvedilol 6.25 mg Tablet 6.25 mg PO BID 30 Days Qty: 60 RF: 0 furosemide 40 mg tablet 40 mg PO DAILY 14 Days Qty: 14 RF: 0 Continued losartan-hydrochlorothiazide 100-25 mg tablet 1 tab PO DAILY Qty: 90 RF: 3 atorvastatin 80 mg tablet 80 mg PO DAILY Qty: 90 RF: 3 omega-3 fatty acids 1,250 mg capsule 1,250 mg PO DAILY Qty: 30 RF: 5 nitroglycerin 0.4 mg tablet, sublingual 0.4 mg SL .COMPLEX Qty: 25 RF: 5 aspirin [Enteric Coated Aspirin] 81 mg tablet,delayed release (DR/EC) 81 mg PO DAILY Qty: 90 RF: 3 ferrous sulfate 325 mg (65 mg iron) tablet 325 mg PO BID RF: 0 Anoro Ellipta 62.5-25 mcg/actuation Blister With Device 1 inh INHALATION DAILY RF: 0 albuterol sulfate 90 mcg/actuation Aero Powdr Breath Act W/Sensor 1 inh INHALATION Q4H RF: 0 fesoterodine 4 mg tablet extended release 24 hr 4 mg PO DAILY RF: 0 cholecalciferol (vitamin D3) 1,000 unit capsule 2,000 units PO DAILY 30 Days Qty: 6 RF: 0 Discontinued metoprolol succinate 100 mg tablet extended release 24 hr 100 mg PO DAILY Qty: 90 RF: 3 amlodipine 10 mg tablet 10 mg PO DAILY Qty: 90 RF: 3 Discharge Orders: Discharge Order (Routine); Ordered 12/11/21 Ordered By: Elfego Garza/Other Patient Handouts: Understanding Oxygen Therapy, Using Oxygen Safely, Traveling with Oxygen, Using an Oxygen Tank at Home, Oxygen Supplemental Admission Data Admit Date/Time: 12/10/21 06:33 Attending Provider: Noris Hernández Admit Provider: Bridget Soliz Primary Care Provider: [facility] Other Providers: Bridget Soliz Other Interventions: Discharge Summary Assessment (RN) Last Done: 12/11/21 17:02 Supervising Attestation Medical Student Supervision Note: I was personally present during medical student patient encounter and independently interviewed and examined the patient and verified the macedo history and physical, reviewed labs and image studies, discussed the case with Eli Aguiar and agree with the findings and care plan. Diuresed well with IV lasix while in hospital. Home with lasix and Home O2. continue further diuresis as outpatient. d/c amlodipine. switch lopressor to coreg for BP control. bmp in 2-3 days Discharge Exam Constitutional WD/WN, vitals as above Eyes PERRL, conjunctivae normal, anicteric sclerae ENMT external ear and nose normal, oropharynx normal Neck trachea midline, no thyromegaly Respiratory normal respiratory effort, lungs clear to auscultation does not use accessory muscles Auscultation: no crackles Cardiovascular RRR, no murmur, no edema Vessels: no JVD Gastrointestinal (Abdomen) normal bowel sounds, soft, nontender, no hepatosplenomegaly Psychiatric A+Ox3, euthymic affect Orientation: alert and oriented x 3 Results ([facility]) Labs Result diagrams: 12/11/21 06:34 12/11/21 06:34 Abnormal lab results 12/11/21 12/11/21 Range/Units 06:34 06:34 RBC 3.97 L (4.7-6.1) M/uL Hgb 12.3 L (14.0-18.0) g/dL Hct 35.7 L (42-52) % MPV 12.4 H (7.4-10.4) fL [place] # (Auto) 0.85 H (0.11-0.59) K/uL BUN 48 H (6-23) mg/dl Creatinine 2.38 H (0.6-1.4) mg/dl BUN/Creatinine Ratio 20.2 H (10-20) Short CBC 12/11/21 Range/Units 06:34 WBC 9.24 (4.8-10.8) K/uL Hgb 12.3 L (14.0-18.0) g/dL Hct 35.7 L (42-52) % Plt Count 250 (130-400) K/uL BMP 12/11/21 06:34 Sodium 139 Potassium 4.1 Chloride 106 Carbon Dioxide 24 BUN 48 H Creatinine 2.38 H Glucose 94 Calcium 9.3 All other labs normal. Chest X-Ray 12/10/21 04:03 XR chest 1V portable CLINICAL HISTORY: Dyspnea. COMPARISON STUDY: 02/25/2014 TECHNIQUE: 1 view of the chest FINDINGS: Single frontal view of the chest demonstrates the heart size to be mildly enlarged status post previous cardiothoracic surgery. Compared to previous examination, there is a decreased inspiratory effort with elevation of hemidiaphragms. There is a confluent alveolar opacity involving the right lower lobe most characteristic of lobar pneumonia. There is also blunting of the right costophrenic angle characteristic of a small right pleural effusion. There is no definite left pleural effusion. There is no evidence for vascular congestion. There is no acute osseous pathology. IMPRESSION: Decreased inspiration with alveolar opacity at the right lung base characteristic of a lobar pneumonia. There is a small associated right pleural effusion as well. ACT 112: Negative or not required by law. Electronically signed by: Dennis Gutiérrez M.D. 12/10/2021 7:40 AM Extremity Venous Study 12/10/21 06:37 LEFT UPPER EXTREMITY VENOUS DOPPLER ULTRASOUND CLINICAL HISTORY: Left upper extremity swelling. COMPARISON STUDY: No previous studies for comparison. TECHNIQUE: Sonography of the deep venous system of the left upper extremity was performed. FINDINGS: The left internal jugular, subclavian, axillary, brachial, radial and ulnar veins are patent. IMPRESSION: No deep venous thrombus within the left upper extremity. ACT 112: Negative or not required by law. Electronically signed by: Gopi Huntley M.D. 12/10/2021 9:01 AM Diagnostic results US - extremity: image reviewed
--- NOTE | 2021-12-11 16:08 | Communication Note ---
Date of Service: December 11, 2021 By CMS guidelines, a determination that the admission or continued stay is not medically necessary has been made by a member of the UR committee and nydia bermudez for this hospital stay, therefore a Code 44 will be completed and the Inpatient admission will be changed to outpatient.
--- NOTE | 2021-12-11 16:38 | Communication Note ---
Date of Service: December 11, 2021 By CMS guidelines, a determination that the admission or continued stay is not medically necessary has been made by a member of the UR committee and a ph ysician for this hospital stay, therefore a Code 44 will be completed and the Inpatient admission will be changed to outpatient.
== END 2021-12-11 18:00 | disposition home or self-care (01) ==
LOC: SUATTDRO → ED 03:46 → INTOOBSV 06:33 → SUATTDRO 06:33 → 3N 06:33
DX: Z85.46 Personal history of malignant neoplasm of prostate; I25.10 Atherosclerotic heart disease of native coronary artery without angina pectoris; Z88.6 Allergy status to analgesic agent; Z20.822 Contact with and (suspected) exposure to COVID-19; Z87.891 Personal history of nicotine dependence; Z88.8 Allergy status to other drugs, medicaments and biological substances; Z95.1 Presence of aortocoronary bypass graft; I13.0 Hypertensive heart and chronic kidney disease with heart failure and stage 1 through stage 4 chronic kidney disease, or unspecified chronic kidney disease; I73.9 Peripheral vascular disease, unspecified; E66.9 Obesity, unspecified; G47.33 Obstructive sleep apnea (adult) (pediatric); N18.30 Chronic kidney disease, stage 3 unspecified; J44.9 Chronic obstructive pulmonary disease, unspecified; I50.31 Acute diastolic (congestive) heart failure; H90.6 Mixed conductive and sensorineural hearing loss, bilateral

== ENCOUNTER 2022-02-17 06:03 | Inpatient (IN) ==
[2022-02-17 06:30] LABS: Basophils # (auto) 0.09 K/uL (0-0.2); Basophils % (auto) 0.5 %; Eosinophils # (auto) 0.58 K/uL (0-0.5); Eosinophils % (auto) 3.4 %; Hematocrit (blood only) 37.3 % (42-52); Hemoglobin 12.7 g/dL (14.0-18.0); Immature Granulocytes # (auto) 0.06 K/uL (0.00-0.02); Immature Granulocytes % (auto) 0.4 %; Lymphocytes # (auto) 2.01 K/uL (1.2-3.4); Lymphocytes % (auto) 11.9 %; Mean Corpuscular Hemoglobin 31.1 pg (25-34); Mean Corpuscular Volume 91.2 fL (80-100); Mean Platelet Volume 12.1 fL (7.4-10.4); Monocytes # (auto) 1.62 K/uL (0.11-0.59); Monocytes % (auto) 9.6 %; Neutrophils # (auto) 12.55 K/uL (1.4-6.5); Neutrophils % (auto) 74.2 %; Platelet Count 284 K/uL (130-400); RDW Coefficient of Variation 12.7 % (11.5-14.5); RDW Standard Deviation 42.4 fL (36.4-46.3); Red Blood Count 4.09 M/uL (4.7-6.1); White Blood Count 16.91 K/uL (4.8-10.8)
[2022-02-17] MEDS ORDERED: ALBUT/IPRATROP 3MG/0.5MG NEB 3 ML VIAL NEB STA ×2 (06:37→06:53)
[2022-02-17] MEDS ORDERED: NITROGLYCERIN 2% OINTMENT 30GM TUBE EXT STA ×2 (06:37→07:04)
[2022-02-17] MEDS: NITROGLYCERIN 2% OINTMENT 30GM TUBE ONE ×2 (06:38→06:39)
[2022-02-17] MEDS ORDERED: FUROSEMIDE 40 MG/4 ML VIAL IV STA (06:38)
[2022-02-17] MEDS ORDERED: CEFEPIME 2,000 MG/20 ML VIAL IV STA (06:40)
[2022-02-17 07:00] LABS: Alanine Aminotransferase 13 U/L (7-52); Albumin Globulin Ratio 1.2 (0.9-2); Albumin Level 3.7 gm/dl (3.4-5.0); Alkaline Phosphatase 74 U/L (34-104); Anion Gap 7 (3-11); BUN Creatinine Ratio 19.4 (10-20); Bilirubin,Total 0.6 mg/dl (0.2-1.0); Blood Urea Nitrogen 47 mg/dl (6-23); Calcium 9.2 mg/dl (8.5-10.1); Carbon Dioxide 26 mmol/L (21-32); Chloride 105 mmol/L (98-107); Creatinine Clr Calc Pharmacy 26.8 ml/min; Est GFR (African American) 27.8 ml/min; Globulin 3.1 gm/dl (2.5-4.0); Glucose 134 mg/dl (70-99(Fasting)); Magnesium 1.9 mg/dl (1.7-2.4); Sodium 138 mmol/L (136-145); Total Protein 6.8 gm/dl (6.0-8.3)
--- NOTE | 2022-02-17 07:07 | XRay Report ---
XR chest 1V portable HISTORY: Dyspnea COMPARISON: 12/10/2021. FINDINGS: No pneumothorax. The heart remains enlarged. There are poststernotomy changes. Diffuse inte rstitial/vascular thickening and bilateral pleural effusions have progressed. This consistent with pr ogressive pulmonary edema. IMPRESSION: Interval progression of the moderate pulmonary edema and bilateral pleural effusions. ACT 112: Negative or not required by law. Electronically signed by: Lamonte Napier M.D. 02/17/2022 7:05 AM
--- NOTE | 2022-02-17 07:09 | Emergency Department Note ---
Impression & Plan Respiratory distress, SOB (shortness of breath), Elevated troponin, CHF (congestive heart failure), Wheezing ED Provider Note NAME: JOHANNE SPRING AGE: 81 SEX: M : 1940 ARRIVES VIA: Ambulance INFORMANT: [Patient][ems, nursing] ED PROVIDER(S): [aKna King MD] CHIEF COMPLAINT: Shortness of breath HISTORY OF PRESENT ILLNESS: The patient is an 81-year-old male who presents by ambulance for shortness of breath. He was in our hospital recently for a bout of CHF. He typically wears about 2 or 3 L of oxygen. This morning, he was short of breath and could not get out of his chair. He was sent for evaluation. The patient is a very poor historian. He complains of being short of breath, he can give me no other history. He also states that he currently needs to urinate. Given the circumstances and his distress, no further history obtainable. REVIEW OF SYSTEMS: Unobtainable given his distress and current mental state PMHx/PSHx: See Below SOCIAL HISTORY: See Below. PHYSICAL EXAM: GENERAL: Patient is in significant respiratory distress. HEENT: No acute trauma, normocephalic atraumatic, mucous membranes dry, no nasal congestion, no scleral icterus. NECK: No stridor, no adenopathy, no meningismus, trachea is midline. LUNGS: Increased respiratory rate. Accessory muscle use. He appears quite short of breath and in respiratory distress. He is wheezing with crackles bilaterally. HEART: Cardiac tones cannot be heard because of the overriding lung sounds. ABDOMEN: Soft, nontender, bowel sounds positive, no hernias, no peritonitis. EXTREMITIES: No cyanosis, moderate bilateral pedal edema with some chronic skin change, full range of motion of all the joints without pain or difficulty, no signs for acute trauma. NEUROLOGIC: Awake and alert, in distress, moving all extremities. SKIN: No rash, no jaundice, no diaphoresis. DIFFERENTIAL DIAGNOSIS: Reactive airway disease, COVID-19, influenza, pneumonia, pneumothorax, COPD, CHF, infection, cardiac ischemia, pulmonary embolism, bronchitis, musculoskeleta l, gastrointestinal, as well as other pathologies. EMERGENCY DEPARTMENT COURSE/PROCEDURES: ECG: Indication was shortness of breath. The ECG shows a sinus rhythm with a first-degree AV block. There are some PVCs. The rate is 87. There is a right bundle branch block. There is no obvious ST elevation. There is significant baseline artifact. Nonspecific ST change noted. QTC is 483. Continuous Cardiac Monitoring: An order was placed for continuous cardiac monitoring. The monitor shows a rate of 90 with sinus rhythm with a first-de gree AV block and PVCs. Critical Care Note: I have personally spent 53 minutes of critical care time in the direct management of this patient. This includes bedside care, i nterpretation of diagnostic studies, and testing, discussion with consultants, patient, and family members, and other required patient management activities. This 53 minutes is in excess of all separately billable procedures. MEDICAL DECISION MAKING: There is a moderate leukocytosis, this would be consistent with the stress of his presentation or infection. A mild anemia was noted. The anemia is baseline for the patient. There was a normal platelet count. No coagulopathy. There was some renal insufficiency but this appears baseline looking back at previous testing. No concerning electrolyte abnormality. Lactic acid level was not elevated making severe sepsis less likely. No concerning liver enzyme elevation. Chest x-ray does show CHF. BNP is elevated consistent with fluid overload. ECG has a poor baseline but does not show any obvious acute ischemia. The rhythm appeared sinus. Troponin was elevated consistent with cardiac injury versus demand ischemia from his dyspnea. Urinalysis did not show infection. COVID, influenza and RSV testing was negative. The patient was in significant distress. He was emergently/rapidly cared for. He was given 2 duo nebs, he was placed on BiPAP. He was given 2 inches of nitroglycerin paste which was then increased to 3 inches. He received IV Lasix, 60 mg. He received IV cefepime as empiric antibiotic coverage. With the above treatment, the patient has made significant improvement. He is breathing easier, he no longer appears in distress. His O2 saturation has improved, his blood pressure has improved. Respiratory was able to perform an ABG. A mild respiratory acidosis was seen. The patient is in need of a hospital stay. He appears to have a flare of COPD plus a component of CHF as the cause for his dyspnea. Further care is required. With the troponin elevation, troponin trending is required. I spoke with the patient and director of casework. The on-call hospitalist was consulted. 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 Diastolic CHF History of prostate cancer Hyperlipidemia Hypertension Obstructive sleep apnea Stage 3 chronic kidney disease Surgical History History of cataract surgery History of colonoscopy History of prostate surgery Hx of CABG S/P hip replacement Family History Denies family history of Ovarian cancer Prostate cancer Kidney disease Myocardial infarction Breast cancer Colorectal cancer Social History Smoking Status: Former smoker Tobacco Type: Cigars Age Started Using Tobacco: 24; Age Quit Using Tobacco: 49; Second Hand Exposure: No; Hx Alcohol Use: No Hx Substance Use: No Preferred Language: Italian Communication Ability: Effective Visual Impairment: Limited Hearing Ability: Use of Hearing Aid 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 Required: No Beliefs That Will Affect Care: None marital status: / Current Living Situation: Personal Care Facility current occupational status: 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 Feels Safe at Home: Yes Safety Concerns: Feels Safe At This Time Childhood Exposure to Second-Hand Smoke: Yes caffeine: No during the past year weight has: remained stable Dental Care, Regularly: No Physical Activity Frequency: Does not Exercise Seatbelt Use: always Sunscreen Use: No Assistive Devices: Cane, Denture - Upper, Denture - Lower, Hearing Aid - Jorge ateral and Oxygen - Continuous Allergies Allergies Allergy/AdvReac Type Severity Reaction Status Date / Time amlodipine Allergy Unknown Unverified 02/17/22 07:51 aspirin Allergy Unknown Unverified 02/17/22 12:52 atorvastatin Allergy Unknown Unverified 02/17/22 12:52 Home Meds Home Medications Medication Instructions Recorded Confirmed ferrous sulfate 325 mg (65 mg 325 mg PO BID tab 05/31/19 02/17/22 iron) tablet albuterol sulfate 90 mcg/actuation 1 inh INHALATION Q4H PRN 12/10/21 02/17/22 breath activated powder inhaler,sensor fesoterodine 4 mg tablet,extended 4 mg PO QAM 12/10/21 02/17/22 release 24 hr (Toviaz) umeclidinium 62.5 mcg-vilanterol 1 inh INHALATION QAM 12/10/21 02/17/22 25 mcg/actuation powdr for inhalation (Anoro Ellipta) acetaminophen 650 mg 1,300 mg PO Q8H PRN 02/17/22 02/17/22 tablet,extended release (Arthritis Pain Relief (acetaminophen) ER) aspirin 81 mg tablet,delayed 81 mg PO QAM 02/17/22 02/17/22 release (Enteric Coated Aspirin) atorvastatin 80 mg tablet 80 mg PO QAM 02/17/22 02/17/22 carvedilol 6.25 mg tablet 6.25 mg PO BID 02/17/22 02/17/22 cholecalciferol (vitamin D3) 25 2,000 units PO QAM 02/17/22 02/17/22 mcg (1,000 unit) capsule lorazepam 0.5 mg tablet 0.5 mg SUBLINGUAL BID PRN 02/17/22 02/17/22 losartan 100 1 tab PO QAM 02/17/22 02/17/22 mg-hydrochlorothiazide 25 mg tablet omega [id number] oil 1,000 mg 1 cap PO QAM 02/17/22 02/17/22 (120 mg-180 mg) capsule (Fish Oil) polyethylene glycol 3350 17 17 g PO QAM 02/17/22 02/17/22 gram/dose oral powder (Miralax) Previous Rx's Medication Instructions Recorded nitroglycerin 0.4 mg sublingual 0.4 mg SL .COMPLEX #25 tab 04/14/19 tablet Results & Data (ED) Vital Signs Vital Signs - 24 hr 02/17/22 06:07 02/17/22 06:15 02/17/22 06:16 Temperature 36.4 C L Temperature Source Oral Pulse Rate 110 H 96 H Pulse Rate [Apical] Pulse Rate from SpO2 Sensor 97 H Respiratory Rate 26 H 28 H Respiratory Effort / Characteristics Respiratory Depth Normal Respiratory Pattern Blood Pressure 235/135 H Blood Pressure Mean 168 Pulse Oximetry 97 97 98 Oxygen Delivery Method Nasal Cannula Nasal Cannula Oxygen Flow Rate 4 4 Fraction of Inspired Oxygen Sepsis Recent Fever Within 48 Hours No Sepsis New/Unexplained Change in Mental Status N/A Sepsis Action Taken by Nursing No Action Required 02/17/22 06:30 02/17/22 06:45 02/17/22 06:47 Temperature Temperature Source Pulse Rate 105 H 106 H 100 H Pulse Rate [Apical] Pulse Rate from SpO2 Sensor 105 H 106 H Respiratory Rate 27 H 29 H 28 H Respiratory Effort / Characteristics Spontaneous Short of Breath Respiratory Depth Shallow Respiratory Pattern Blood Pressure Blood Pressure Mean Pulse Oximetry 96 93 94 Oxygen Delivery Method Oxygen Flow Rate Fraction of Inspired Oxygen 45 Sepsis Recent Fever Within 48 Hours Sepsis New/Unexplained Change in Mental Status Sepsis Action Taken by Nursing 02/17/22 06:48 02/17/22 06:51 02/17/22 06:55 Temperature Temperature Source Pulse Rate 95 H 91 H Pulse Rate [Apical] 100 H Pulse Rate from SpO2 Sensor 96 H 88 Respiratory Rate 28 H 28 H 27 H Respiratory Effort / Characteristics Spontaneous Short of Breath Respiratory Depth Respiratory Pattern Blood Pressure 222/119 H 204/106 H Blood Pressure Mean 153 138 Pulse Oximetry 94 92 94 Oxygen Delivery Method BiPAP Oxygen Flow Rate Fraction of Inspired Oxygen 45 Sepsis Recent Fever Within 48 Hours Sepsis New/Unexplained Change in Mental Status Sepsis Action Taken by Nursing 02/17/22 06:59 02/17/22 07:00 02/17/22 07:10 Temperature Temperature Source Pulse Rate 87 Pulse Rate [Apical] 90 Pulse Rate from SpO2 Sensor 84 Respiratory Rate 28 H 27 H Respiratory Effort / Characteristics Spontaneous Short of Breath Respiratory Depth Respiratory Pattern Blood Pressure 191/110 H Blood Pressure Mean 137 Pulse Oximetry 45 L 93 Oxygen Delivery Method BiPAP Oxygen Flow Rate Fraction of Inspired Oxygen 40 Sepsis Recent Fever Within 48 Hours Sepsis New/Unexplained Change in Mental Status Sepsis Action Taken by Nursing 02/17/22 07:15 02/17/22 07:30 02/17/22 07:45 Temperature Temperature Source Pulse Rate 75 72 68 Pulse Rate [Apical] Pulse Rate from SpO2 Sensor 75 65 64 Respiratory Rate 23 21 18 Respiratory Effort / Characteristics Respiratory Depth Respiratory Pattern Blood Pressure 161/76 H 167/77 H 172/89 H Blood Pressure Mean 104 107 116 Pulse Oximetry 92 94 91 Oxygen Delivery Method Oxygen Flow Rate Fraction of Inspired Oxygen Sepsis Recent Fever Within 48 Hours Sepsis New/Unexplained Change in Mental Status Sepsis Action Taken by Nursing 02/17/22 07:53 02/17/22 08:00 02/17/22 08:16 Temperature Temperature Source Pulse Rate 92 H 65 66 Pulse Rate [Apical] Pulse Rate from SpO2 Sensor 64 62 Respiratory Rate 22 16 20 Respiratory Effort / Characteristics Spontaneous Respiratory Depth Normal Respiratory Pattern Regular Blood Pressure 171/91 H 184/84 H Blood Pressure Mean 117 117 Pulse Oximetry 93 93 94 Oxygen Delivery Method Oxygen Flow Rate Fraction of Inspired Oxygen 30 Sepsis Recent Fever Within 48 Hours Sepsis New/Unexplained Change in Mental Status Sepsis Action Taken by Nursing 02/17/22 08:30 02/17/22 08:45 02/17/22 09:00 Temperature Temperature Source Pulse Rate 67 65 59 L Pulse Rate [Apical] Pulse Rate from SpO2 Sensor 62 59 L 57 L Respiratory Rate 20 21 20 Respiratory Effort / Characteristics Respiratory Depth Respiratory Pattern Blood Pressure 189/87 H 196/92 H 169/97 H Blood Pressure Mean 121 126 121 Pulse Oximetry 95 96 97 Oxygen Delivery Method Oxygen Flow Rate Fraction of Inspired Oxygen 30 Sepsis Recent Fever Within 48 Hours Sepsis New/Unexplained Change in Mental Status Sepsis Action Taken by Nursing 02/17/22 09:15 02/17/22 09:30 Temperature Temperature Source Pulse Rate 62 62 Pulse Rate [Apical] Pulse Rate from SpO2 Sensor 56 L 54 L Respiratory Rate 16 3 L Respiratory Effort / Characteristics Respiratory Depth Respiratory Pattern Blood Pressure 178/83 H 177/81 H Blood Pressure Mean 114 113 Pulse Oximetry 96 96 Oxygen Delivery Method Oxygen Flow Rate Fraction of Inspired Oxygen Sepsis Recent Fever Within 48 Hours Sepsis New/Unexplained Change in Mental Status Sepsis Action Taken by Detention Medications Current Medication List: was personally reviewed by me Laboratory Data Attestation: I reviewed the patient's lab results. Result diagrams: 02/17/22 06:19 02/17/22 07:05 Lab Results 02/17/22 02/17/22 02/17/22 Range/Units 06:19 06:19 06:19 WBC 16.91 H (4.8-10.8) K/uL RBC 4.09 L (4.7-6.1) M/uL Hgb 12.7 L (14.0-18.0) g/dL Hct 37.3 L (42-52) % MCV 91.2 (80-100) fL MCH 31.1 (25-34) pg MCHC 34.0 (32-36) g/dL RDW Std Deviation 42.4 (36.4-46.3) fL RDW Coeff of Natalie 12.7 (11.5-14.5) % Plt Count 284 (130-400) K/uL MPV 12.1 H (7.4-10.4) fL Immature Gran % (Auto) 0.4 % Neut % (Auto) 74.2 % Lymph % (Auto) 11.9 % Starr % (Auto) 9.6 % Eos % (Auto) 3.4 % Baso % (Auto) 0.5 % Neut # (Auto) 12.55 H (1.4-6.5) K/uL Lymph # (Auto) 2.01 (1.2-3.4) K/uL Starr # (Auto) 1.62 H (0.11-0.59) K/uL Eos # (Auto) 0.58 H (0-0.5) K/uL Baso # (Auto) 0.09 (0-0.2) K/uL Immature Gran # (Auto) 0.06 H (0.00-0.02) K/uL PT 10.9 (9.0-12.0) Seconds INR 1.0 (0.9-1.1) APTT 26.0 (21.0-31.0) Seconds PTT Ratio 0.9 Sodium 138 (136-145) mmol/L Potassium TNP Chloride 105 (98-107) mmol/L Carbon Dioxide 26 (21-32) mmol/L Anion Gap 7 (3-11) BUN 47 H (6-23) mg/dl Creatinine 2.42 H (0.6-1.4) mg/dl Est Cr Clr Drug Dosing 26.8 ml/min Est GFR ( Amer) 27.8 ml/min Est GFR (Non-Af Amer) 24.0 ml/min BUN/Creatinine Ratio 19.4 (10-20) Glucose 134 H (70-99(Fasting)) mg/dl Lactate (0.4-2.0) mmol/L Calcium 9.2 (8.5-10.1) mg/dl Magnesium 1.9 (1.7-2.4) mg/dl Total Bilirubin 0.6 (0.2-1.0) mg/dl AST TNP ALT 13 (7-52) U/L Alkaline Phosphatase 74 (34-104) U/L Troponin I High Sens 327.5 H* (0-20) pg/ml B-Natriuretic Peptide (0-100) pg/ml Total Protein 6.8 (6.0-8.3) gm/dl Albumin 3.7 (3.4-5.0) gm/dl Globulin 3.1 (2.5-4.0) gm/dl Albumin/Globulin Ratio 1.2 (0.9-2) Urine Color Urine Appearance (Clear) Urine pH (4.5-7.5) Ur Specific [place] (1.000-1.030) Urine Protein (Negative) Urine Glucose (UA) (Negative) Urine Ketones (Negative) Urine Blood (Negative) Urine Nitrite (Negative) Urine Bilirubin (Negative) Urine Urobilinogen (Negative) Ur Leukocyte Esterase (Negative) Urine WBC (Auto) (0-5) /hpf Urine RBC (Auto) (0-4) /hpf U Hyaline Cast (Auto) (0-5) /lpf U Epithel Cells (Auto) (0-5) /lpf Urine Bacteria (Auto) (Negative) SARS-CoV-2 (PCR) (Negative) Influenza Type A (PCR) (Neg) Influenza Type B (PCR) (Neg) RSV (RT-PCR) (Neg) 02/17/22 02/17/22 02/17/22 Range/Units 07:00 07:00 07:00 WBC (4.8-10.8) K/uL RBC (4.7-6.1) M/uL Hgb (14.0-18.0) g/dL Hct (42-52) % MCV (80-100) fL MCH (25-34) pg MCHC (32-36) g/dL RDW Std Deviation (36.4-46.3) fL RDW Coeff of Natalie (11.5-14.5) % Plt Count (130-400) K/uL MPV (7.4-10.4) fL Immature Gran % (Auto) % Neut % (Auto) % Lymph % (Auto) % Starr % (Auto) % Eos % (Auto) % Baso % (Auto) % Neut # (Auto) (1.4-6.5) K/uL Lymph # (Auto) (1.2-3.4) K/uL Starr # (Auto) (0.11-0.59) K/uL Eos # (Auto) (0-0.5) K/uL Baso # (Auto) (0-0.2) K/uL Immature Gran # (Auto) (0.00-0.02) K/uL PT (9.0-12.0) Seconds INR (0.9-1.1) APTT (21.0-31.0) Seconds PTT Ratio Sodium (136-145) mmol/L Potassium Chloride (98-107) mmol/L Carbon Dioxide (21-32) mmol/L Anion Gap (3-11) BUN (6-23) mg/dl Creatinine (0.6-1.4) mg/dl Est Cr Clr Drug Dosing ml/min Est GFR ( Amer) ml/min Est GFR (Non-Af Amer) ml/min BUN/Creatinine Ratio (10-20) Glucose (70-99(Fasting)) mg/dl Lactate 0.8 (0.4-2.0) mmol/L Calcium (8.5-10.1) mg/dl Magnesium (1.7-2.4) mg/dl Total Bilirubin (0.2-1.0) mg/dl AST ALT (7-52) U/L Alkaline Phosphatase (34-104) U/L Troponin I High Sens (0-20) pg/ml B-Natriuretic Peptide 2317 H (0-100) pg/ml Total Protein (6.0-8.3) gm/dl Albumin (3.4-5.0) gm/dl Globulin (2.5-4.0) gm/dl Albumin/Globulin Ratio (0.9-2) Urine Color Yellow Urine Appearance Clear (Clear) Urine pH 5.0 (4.5-7.5) Ur Specific [place] 1.016 (1.000-1.030) Urine Protein 4+ H (Negative) Urine Glucose (UA) Trace H (Negative) Urine Ketones Negative (Negative) Urine Blood 1+ H (Negative) Urine Nitrite Negative (Negative) Urine Bilirubin Negative (Negative) Urine Urobilinogen Negative (Negative) Ur Leukocyte Esterase Negative (Negative) Urine WBC (Auto) 1-5 (0-5) /hpf Urine RBC (Auto) 5-10 H (0-4) /hpf U Hyaline Cast (Auto) 1-5 (0-5) /lpf U Epithel Cells (Auto) 20-30 H (0-5) /lpf Urine Bacteria (Auto) Negative (Negative) SARS-CoV-2 (PCR) (Negative) Influenza Type A (PCR) (Neg) Influenza Type B (PCR) (Neg) RSV (RT-PCR) (Neg) 02/17/22 02/17/22 Range/Units 07:05 07:35 WBC (4.8-10.8) K/uL RBC (4.7-6.1) M/uL Hgb (14.0-18.0) g/dL Hct (42-52) % MCV (80-100) fL MCH (25-34) pg MCHC (32-36) g/dL RDW Std Deviation (36.4-46.3) fL RDW Coeff of Natalie (11.5-14.5) % Plt Count (130-400) K/uL MPV (7.4-10.4) fL Immature Gran % (Auto) % Neut % (Auto) % Lymph % (Auto) % Starr % (Auto) % Eos % (Auto) % Baso % (Auto) % Neut # (Auto) (1.4-6.5) K/uL Lymph # (Auto) (1.2-3.4) K/uL Starr # (Auto) (0.11-0.59) K/uL Eos # (Auto) (0-0.5) K/uL Baso # (Auto) (0-0.2) K/uL Immature Gran # (Auto) (0.00-0.02) K/uL PT (9.0-12.0) Seconds INR (0.9-1.1) APTT (21.0-31.0) Seconds PTT Ratio Sodium (136-145) mmol/L Potassium 4.1 Chloride (98-107) mmol/L Carbon Dioxide (21-32) mmol/L Anion Gap (3-11) BUN (6-23) mg/dl Creatinine (0.6-1.4) mg/dl Est Cr Clr Drug Dosing ml/min Est GFR ( Amer) ml/min Est GFR (Non-Af Amer) ml/min BUN/Creatinine Ratio (10-20) Glucose (70-99(Fasting)) mg/dl Lactate (0.4-2.0) mmol/L Calcium (8.5-10.1) mg/dl Magnesium (1.7-2.4) mg/dl Total Bilirubin (0.2-1.0) mg/dl AST 15 ALT (7-52) U/L Alkaline Phosphatase (34-104) U/L Troponin I High Sens (0-20) pg/ml B-Natriuretic Peptide (0-100) pg/ml Total Protein (6.0-8.3) gm/dl Albumin (3.4-5.0) gm/dl Globulin (2.5-4.0) gm/dl Albumin/Globulin Ratio (0.9-2) Urine Color Urine Appearance (Clear) Urine pH (4.5-7.5) Ur Specific [place] (1.000-1.030) Urine Protein (Negative) Urine Glucose (UA) (Negative) Urine Ketones (Negative) Urine Blood (Negative) Urine Nitrite (Negative) Urine Bilirubin (Negative) Urine Urobilinogen (Negative) Ur Leukocyte Esterase (Negative) Urine WBC (Auto) (0-5) /hpf Urine RBC (Auto) (0-4) /hpf U Hyaline Cast (Auto) (0-5) /lpf U Epithel Cells (Auto) (0-5) /lpf Urine Bacteria (Auto) (Negative) SARS-CoV-2 (PCR) NEGATIVE (Negative) Influenza Type A (PCR) Negative (Neg) Influenza Type B (PCR) Negative (Neg) RSV (RT-PCR) Negative (Neg) Administered Medications Carvedilol (Carvedilol 6.25 Mg Tab) 6.25 mg PO BID [facility] Stop: 03/19/22 12:44 Last Admin: 02/17/22 12:39 Dose: 6.25 mg Documented by: [id number] Ferrous Sulfate (Ferrous Sulfate 325 Mg Tab) 325 mg PO BID [facility] Stop: 03/19/22 12:44 Last Admin: 02/17/22 12:38 Dose: 325 mg Documented by: [id number] HCTZ/Losartan Potassium (Losartan/Hctz 50/12.5mg Tab) 1 tab PO QAM [facility] Stop: 03/19/22 12:44 Last Admin: 02/17/22 12:38 Dose: 1 tab Documented by: [id number] Heparin Sodium/Dextrose (Heparin Sodium/Dextrose) 25,000 units in 500 mls @ 29 mls/hr IV .[id number] [facility]; Protocol Stop: 03/19/22 09:44 Last Titration: 02/17/22 12:17 Dose: 1,450 units/hr, 29 mls/hr Documented by: [id number] Cosigned by: [id number] Admin: 02/17/22 10:18 Dose: 1,450 units/hr, 29 mls/hr Documented by: [id number] Cosigned by: [id number] Nitroglycerin/Dextrose (Nitroglycerin/D5w 100 Mcg/Ml) 250 mls @ 3 mls/hr IV .Q24H [facility]; Protocol Stop: 03/19/22 12:14 Last Admin: 02/17/22 12:37 Dose: 5 mcg/min, 3 mls/hr Documented by: [id number] Cosigned by: [id number] Potassium Chloride (Potassium Chloride Crtab 20 Meq Tabcr) 20 meq PO QAM [facility] Stop: 03/19/22 12:44 Last Admin: 02/17/22 12:38 Dose: 20 meq Documented by: [id number] Discontinued Medications Albuterol (Albut/Ipratrop 3mg/0.5mg Neb 3 Ml Vial) 3 ml NEB NOW STA; Protocol Stop: 02/17/22 06:38 Last Admin: 02/17/22 06:59 Dose: 3 ml Documented by: [id number] Albuterol (Albut/Ipratrop 3mg/0.5mg Neb 3 Ml Vial) 3 ml NEB NOW STA; Protocol Stop: 02/17/22 06:54 Last Admin: 02/17/22 06:59 Dose: 3 ml Documented by: [id number] Furosemide (Furosemide 40 Mg/4 Ml Vial) 60 mg IV NOW STA Stop: 02/17/22 06:39 Last Admin: 02/17/22 06:45 Dose: 60 mg Documented by: [id number] Heparin Sodium (Porcine) (Heparin Sod (Porcine) 1000 Unit/Ml) 6,000 units IV NOW ONE Stop: 02/17/22 09:46 Last Admin: 02/17/22 10:19 Dose: 5,000 units Documented by: [id number] Cosigned by: [id number] Cefepime HCl (Maxipime) 2,000 mg in 20 mls @ 5 mls/min IV NOW STA; Protocol Stop: 02/17/22 06:43 Last Admin: 02/17/22 06:55 Dose: 5 mls/min Documented by: [id number] Miscellaneous (Stat Iv Infusion Titration Per Protocol) 1 ea N/A NOW STA Stop: 02/17/22 09:35 Last Admin: 02/17/22 12:16 Dose: Not Given Documented by: [id number] Nitroglycerin (Nitroglycerin 2% Ointment 30gm Tube) Confirm Administered Dose 36 inch .ROUTE .STK-MED ONE Stop: 02/17/22 06:38 Last Admin: 02/17/22 06:39 Dose: Not Given Documented by: [id number] Nitroglycerin (Nitroglycerin 2% Ointment 30gm Tube) 2 inch EXT NOW STA Stop: 02/17/22 06:38 Last Admin: 02/17/22 06:35 Dose: 2 inch Documented by: [id number] Nitroglycerin (Nitroglycerin 2% Ointment 30gm Tube) 3 inch EXT NOW STA Stop: 02/17/22 07:05 Last Admin: 02/17/22 07:08 Dose: 1 inch Documented by: [id number] Imaging Data Radiologist's Impression: Chest X-Ray 02/17/22 06:13 XR chest 1V portable HISTORY: Dyspnea COMPARISON: 12/10/2021. FINDINGS: No pneumothorax. The heart remains enlarged. There are poststernotomy changes. Diffuse interstitial/vascular thickening and bilateral pleural effusions have progressed. This consistent with progressive pulmonary edema. IMPRESSION: Interval progression of the moderate pulmonary edema and bilateral pleural effusions. ACT 112: Negative or not required by law. Electronically signed by: Lamonte Napier M.D. 02/17/2022 7:05 AM Discharge Plan Visit Data Chief Complaint: Shortness of Breath/Dyspnea Stated Complaint: SHORT OF BREATH ED Provider: Kana King Discharge Problem: Respiratory distress, SOB (shortness of breath), Elevated troponin, CHF (congestive heart failure), Wheezing Patient Disposition: Admitted As Inpatient Condition: Serious Discharge Instructions Interventions: ED Discharge Assessment Last Done: 02/17/22 12:15
[2022-02-17 07:31] LABS: Partial Thromboplastin Ratio 0.9; Prothrombin Time 10.9 Seconds (9.0-12.0)
[2022-02-17 07:32] LABS: Appearance Urine Clear (Clear); Bacteria Urine Automated Negative (Negative); Bilirubin Urine Negative (Negative); Blood Urine 1+ (Negative); Color Urine Yellow; Epithelial Cell Urine Auto 20-30 /lpf (0-5); Glucose Urine UA Trace (Negative); Ketones Urine Negative (Negative); Leukocyte Esterase Urine Negative (Negative); Nitrite Urine Negative (Negative); Protein Urine 4+ (Negative); Specific Gravity Urine 1.016 (1.000-1.030); Urobilinogen Urine Negative (Negative)
[2022-02-17 07:50] LABS: Potassium 4.1 mmol/L (3.5-5.1)
--- NOTE | 2022-02-17 08:18 | History & Physical Report ---
Date of Service February 17, 2022 Assessment & Plan (1) Acute on chronic diastolic CHF (congestive heart failure): Plan: William is a 81-year-old male with a past medical history of CHF with diastolic dysfunction last EF 55-60% 12/10/2021, hypertension, COPD, multivessel CAD with history of CABG in 2014, and CKD 3 Baseline creatinine around 2.3 who was admitted 2 months ago for acute CHF exacerbation and who read presents with worsening shortness of breath to the emergency department. Patient was by report snider, hypoxic, and hypertensive and was nearly intubated in the ER. He did rapidly improve with Lasix, Nitropaste, and BiPAP. ABG shows compensated hypercapnia. EKG with difficult tracing, no overt ST segment changes/territorial changes. Inferior leads with initial appearing depression, this resolves on following beats and suspicious for artifact. BNP 2317, high- sensitivity troponin pending. CXR Interval progression of the moderate pulmonary edema and bilateral pleural effusion. Afebrile. Acute on chronic diastolic CHF,? ACS EKG without overt ST segment changes/ST depression. Patient does have dynamic chest pain with shortness of breath, and some ST depressions are seen on telemetry with this High-sensitivity troponin > 300 Chest pain improved to 2/10 with ranges of Nitropaste, BiPAP, Lasix but has not resolved Titrating nitro drip ordered with ICU care Heparin started Troponin trended Echo pending Continue Lasix 60 mg IV twice daily, potassium supplementation WBC 16.91? Reactive. Patient denies fever/chills/sweats. Pro-Yoshi pending Potassium normal Creatinine near baseline 2.4 to BNP 2317 Patient reports he did have Easter ham at his home, gradual worsening symptoms preceding this this may have added a salt load to tip into decompensated CHF COVID-negative, flu negative, RSV negative Stage III CKD Baseline approximately 2.32.4 At, may be slightly above baseline Lasix as above Renally dose medications Hyperlipidemia Atorvastatin 80 mg as noted History of CABG x4, no stents Aspirin continued Heparinized as above Continue carvedilol 6.25 mg p.o. twice daily COPD Trace expiratory wheezing on admission On BiPAP Suspicion for acute exacerbation, suspect symptoms due to CHF as above Continue Anoro DVT heparanzied Diet: NPO pending improvement in resp status CODE STATUS: Full Dispo: ICU while titrating nitro gtt (2) Stage 3 chronic kidney disease: (3) COPD (chronic obstructive pulmonary disease) with emphysema: (4) Elevated troponin: (5) Obstructive sleep apnea: (6) Hyperlipidemia: History of Present Illness Primary Care Provider: [facility] William is a 81-year-old male with a past medical history of CHF with diastolic dysfunction last EF 55-60% 12/10/2021, hypertension, COPD, multivessel CAD with history of CABG in 2014, and CKD 3 Baseline creatinine around 2.3 who was admitted 2 months ago for acute CHF exacerbation and who read presents with worsening shortness of breath to the emergency department. Patient was by report snider, hypoxic, and hypertensive and was nearly intubated in the ER. He did rapidly improve with Lasix, Nitropaste, and BiPAP. ABG shows compensated hypercapnia. EKG with difficult tracing, no overt ST segment changes/territorial changes. Inferior leads with initial appearing depression, this resolves on following beats and suspicious for artifact. BNP 2317, high- sensitivity troponin pending. CXR Interval progression of the moderate pulmonary edema and bilateral pleural effusion. Afebrile. Procal pending. No stends. Hx of BiPass x5 2004. Worsened breathing for at least 1 week of progressive shortness of breath acutely worsened severely overnight. Does radiate slightly to the left shoulder. Developed some pain last night with his severe shortnss of breath, did have some intermittent chest pain this week which may have preceded shortness of breath. Dr. Partida has followed him in the distant past past for pre-op. Ultimately had his surger done at [place]. Okay with procedures done here, but if he did have a major procedure would refer this to be done at [place]. Endorses chronic unchanged cough, nonproductive. No fevers, no chills, no sweats. No nausea/vomtiing/diarrhea. Does endorse some radiating left shoulder pain with his chest pain, which is improved but not yet resolved at time of bedside assessment. Reports much better 2/10 from "pretty bad "before admission Did have some ham for easter, did not add salt to it. Does have homemade soup intermittently. Medical History: Reviewed Medications: Reviewed Surgical History: Reviewed Allergies: Reviewed Social History: Denies current tobacco use, remote cigar use 'but never inhaled.' No recent alcohol. Quit alcohol 1990. Code Status: Surrogate would be daughter Ana Maria Alvarado. FUll Code, no prolonged ventilation. Allergies Allergy/AdvReac Type Severity Reaction Status Date / Time amlodipine Allergy Unknown Unverified 02/17/22 07:51 aspirin Allergy Unknown Unverified 02/17/22 07:51 atorvastatin Allergy Unknown Unverified 02/17/22 07:51 Home Medications Medication Instructions Recorded Confirmed Type nitroglycerin 0.4 mg sublingual 0.4 mg SL .COMPLEX #25 tab 04/14/19 02/17/22 Rx tablet ferrous sulfate 325 mg (65 mg 325 mg PO BID tab 05/31/19 02/17/22 History iron) tablet albuterol sulfate 90 mcg/actuation 1 inh INHALATION Q4H PRN 12/10/21 02/17/22 History breath activated powder inhaler,sensor fesoterodine 4 mg tablet,extended 4 mg PO QAM 12/10/21 02/17/22 History release 24 hr (Toviaz) umeclidinium 62.5 mcg-vilanterol 1 inh INHALATION QAM 12/10/21 02/17/22 History 25 mcg/actuation powdr for inhalation (Anoro Ellipta) acetaminophen 650 mg 1,300 mg PO Q8H PRN 02/17/22 02/17/22 History tablet,extended release (Arthritis Pain Relief (acetaminophen) ER) aspirin 81 mg tablet,delayed 81 mg PO QAM 02/17/22 02/17/22 History release (Enteric Coated Aspirin) atorvastatin 80 mg tablet 80 mg PO QAM 02/17/22 02/17/22 History carvedilol 6.25 mg tablet 6.25 mg PO BID 02/17/22 02/17/22 History cholecalciferol (vitamin D3) 25 2,000 units PO QAM 02/17/22 02/17/22 History mcg (1,000 unit) capsule lorazepam 0.5 mg tablet 0.5 mg SUBLINGUAL BID PRN 02/17/22 02/17/22 History losartan 100 1 tab PO QAM 02/17/22 02/17/22 History mg-hydrochlorothiazide 25 mg tablet omega 1-rja-rqr-fish oil 1,000 mg 1 cap PO QAM 02/17/22 02/17/22 History (120 mg-180 mg) capsule (Fish Oil) polyethylene glycol 3350 17 17 g PO QAM 02/17/22 02/17/22 History gram/dose oral powder (Miralax) 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 Diastolic CHF History of prostate cancer Hyperlipidemia Hypertension Obstructive sleep apnea Stage 3 chronic kidney disease Surgical History History of cataract surgery History of colonoscopy History of prostate surgery Hx of CABG S/P hip replacement Family History Denies family history of Ovarian cancer Prostate cancer Kidney disease Myocardial infarction Breast cancer Colorectal cancer Social History Smoking Status: Former smoker Tobacco Type: Cigars Age Started Using Tobacco: 24; Age Quit Using Tobacco: 49; Second Hand Exposure: No; Hx Alcohol Use: No Hx Substance Use: No Preferred Language: Micronesian Communication Ability: Effective Visual Impairment: Limited Hearing Ability: Use of Hearing Aid Control Director Required: No Beliefs That Will Affect Care: None marital status: / Current Living Situation: Personal Care Facility current occupational status: 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 NAD. Cooperative. At time of assessment is on BiPAP, is able to speak comfortably, patient reportedly very somnolent and snider on initial ER assessment. HEENT: Atraumatic, normocephalic. Visual acuity and hearing grossly intact. Pulm: On BiPAP, bibasilar crackles and trace expiratory wheezes symmetrical chest rise. Cardiac: RRR, +sm, -rg. Radial pulses intact and symmetrical. Abdominal: Nontender, nondistended, soft. BS present. Extremities: 2+ pitting edema of the lower extremities bilaterally. Moves upper and lower extremities equally. Sensation in hands and feet intact to soft touch. Results & Data Results & Data ([facility]) Vital Signs (Past 12 Hours) Vital Signs Temp Pulse Pulse Resp BP Pulse Ox 02/17/22 07:53 92 H 22 93 02/17/22 06:59 90 28 H 45 L 02/17/22 06:55 91 H 27 H 204/106 H 94 02/17/22 06:51 95 H 28 H 222/119 H 92 02/17/22 06:48 100 H 28 H 94 02/17/22 06:47 100 H 28 H 94 02/17/22 06:45 106 H 29 H 93 02/17/22 06:30 105 H 27 H 96 02/17/22 06:16 98 02/17/22 06:15 96 H 28 H 97 02/17/22 06:07 36.4 C L 110 H 26 H 235/135 H 97 PG Care Time/CCT Total # of Minutes Spent Total Time Spent with Patient: Total time spent is greater than 50% in coordination of care (as documented) at patient's floor/unit and/or counseling patient: Coding Level of Care Code 85023 Initial Inpt Care Lvl 3 Diagnoses Acute on chronic diastolic CHF (congestive heart failure) I50.33 Stage 3 chronic kidney disease N18.3 COPD (chronic obstructive pulmonary disease) with emphysema J43.9 Elevated troponin R77.8 Obstructive sleep apnea G47.33 Hyperlipidemia E78.5
[2022-02-17 08:34] LABS: Influenza A virus by PCR Negative (Neg); Influenza B virus by PCR Negative (Neg); RSV by PCR Negative (Neg); SARS CoV2 RNA(COVID-19) InHosp NEGATIVE (Negative)
[2022-02-17 08:37] LABS: Troponin I High Sensitivity 327.5 pg/ml (0-20)
[2022-02-17] MEDS ORDERED: Heparin IV Adult Wt-Based Standard WITH Bolus Protocol IV SCH (09:25)
[2022-02-17] MEDS ORDERED: STAT IV Infusion **Titration per Protocol STA (09:34)
[2022-02-17] MEDS ORDERED: HEPARIN SODIUM/DEXTROSE 25,000 UNITS/500 ML BAG IV SCH (09:45)
[2022-02-17] MEDS ORDERED: HEPARIN SOD (PORCINE) 1000 UNIT/ML IV ONE (09:45)
[2022-02-17] MEDS ORDERED: NITROGLYCERIN SL 0.4 MG/TAB TAB SL PRN (12:15)
[2022-02-17] MEDS: NITROGLYCERIN/D5W 100MCG/ML 250 ML IV SCH (12:37)
[2022-02-17] MEDS: FERROUS SULFATE 325 MG TAB PO SCH ×2 (12:38→21:29)
[2022-02-17] MEDS: LOSARTAN/HCTZ 50/12.5MG TAB PO SCH (12:38)
[2022-02-17] MEDS: POTASSIUM CHLORIDE CRTAB 20 MEQ TABCR PO SCH (12:38)
[2022-02-17] MEDS: carvediloL 6.25 MG TAB PO SCH ×2 (12:39→21:29)
--- NOTE | 2022-02-17 12:44 | Critical Care Consultation ---
Date of Consultation February 17, 2022 Assessment & Plan (1) Hypertensive emergency: (2) Acute on chronic diastolic CHF (congestive heart failure): (3) CAD, multiple vessel: (4) SOB (shortness of breath): (5) Abdominal pain: (6) CKD (chronic kidney disease), stage IV: 81-year-old male with a past medical history of coronary artery disease status post CABG, TEENA, hypertension, morbid obesity, prostate cancer and CKD stage IV who presented to the hospital due to increasing shortness of breath. He has now moved to the ER due to hypertensive emergency associated with chest pain and shortness of breath. Neurologic: No significant issues at present. Avoid mindaltering agents. Pulmonary: Oxygen requirements minimal at this time. Currently on 2 L of oxygen. Chest x- ray with effusion and CHF-like findings. We will obtain a CT chest to further evaluate the parenchyma. Pleural effusions likely related to CHF. Cardiovascular: Hypertensive emergency. Responding well to nitroglycerin at this time as this is going to offload his heart. Continue with diuresis. Continue oral antih ypertensive medications and will likely need to uptitrate. Cardiology consulted. Prior echo reviewed with diastolic dysfunction. We will obtain a CT of the chest without contrast to evaluate vasculature as well. Obviously, this is suboptimal, but should be able to see significant evidence for dissection. Continue heparin infusion given the concern of ACS. Trend troponins. Gastrointestinal: Liver function test this morning unremarkable. Lipase ordered given the abdominal pain. CT abdomen/pelvis ordered as well. Renal: CKD stage IV. Continue diuretic therapy with IV Lasix. Continue to monitor urine output closely. [place]-tinged urine likely related to traumatic Sorensen insertion. Infectious disease: No clear source of infection at this time. Hematologic: Monitor for signs of bleeding while on heparin. Mild hematuria noted. Endocrine: Pharmacy to assist with glucose management. F/E/N: PIV's in place. Lines and tubes: Sorensen catheter in place. VTE prophylaxis: Heparin drip CODE STATUS: Full code Family at bedside: Not available at bedside at this time Disposition: Remain in the ICU at this time I have personally spent 36 minutes of critical care time in the direct m anagement of this patient. This is a life/limb threatening event. This includes time spent evaluating patient, direct bedside care, chart review, placing orders, interpretation of diagnostic studies, discussion with consultants, patient, and family members, as well as other required patient management activities. This time is exclusive of all separately billable procedures, and teaching time and separate from and in addition to any other critical care service time. Thank you for allowing us to participate in the care of this patient. History of Present Illness Reason for Consultation: Hypertensive urgency and chest pain Attending Physician: Ilia Salvador MD History of Present Illness 81-year-old male with a past medical history of TEENA, diastolic CHF with his last echo on 12/10/2021, hypertension, multivessel coronary artery disease with a CABG in 2014, CKD stage IV who presented to the ER today due to increasing shortness of breath. Reportedly he was hypoxic appearing snider in the emergency department. There was consideration for possible intubation. He improved with diuresis and Nitropaste. He was on BiPAP in the ER. ICU transfer was requested due to daily amount of Nitropaste he is requiring as his blood pressure is very elevated. Patient is lying in bed currently. He does not appear to be in any distress. He does endorse mild shortness of breath. This systolic blood pressure is 230 and diastolic is 106. Nursing is about to hang the nitroglycerin drip. He is also on a heparin infusion. Cardiology was consulted to evaluate for coronary artery ischemia. Mild leukocytosis seen on labs. Hemoglobin stable. Platelet count stable. Creatinine largely stable at 2.42. Troponin elevated. BNP 2317. Urinalysis with trace RBCs, trace glucose and 4+ protein. Chest x-ray personally reviewed with increased interstitial markings. Likely left-sided pleural effusion. This is compared to the chest x-ray from 12/10/2021 where he had bilateral pleural effusions, right greater than left. Currently patient endorses some mild abdominal pain and chronic constipation. He also notes that his chest pain has improved slightly since earlier in the morning. He denies any fevers or chills. No significant cough. Allergies Allergy/AdvReac Type Severity Reaction Status Date / Time amlodipine Allergy Unknown Unverified 02/17/22 07:51 aspirin Allergy Unknown Unverified 02/17/22 12:52 atorvastatin Allergy Unknown Unverified 02/17/22 12:52 Home Medications Medication Instructions Recorded Confirmed Type nitroglycerin 0.4 mg sublingual 0.4 mg SL .COMPLEX #25 tab 04/14/19 02/17/22 Rx tablet ferrous sulfate 325 mg (65 mg 325 mg PO BID tab 05/31/19 02/17/22 History iron) tablet albuterol sulfate 90 mcg/actuation 1 inh INHALATION Q4H PRN 12/10/21 02/17/22 History breath activated powder inhaler,sensor fesoterodine 4 mg tablet,extended 4 mg PO QAM 12/10/21 02/17/22 History release 24 hr (Toviaz) umeclidinium 62.5 mcg-vilanterol 1 inh INHALATION QAM 12/10/21 02/17/22 History 25 mcg/actuation powdr for inhalation (Anoro Ellipta) acetaminophen 650 mg 1,300 mg PO Q8H PRN 02/17/22 02/17/22 History tablet,extended release (Arthritis Pain Relief (acetaminophen) ER) aspirin 81 mg tablet,delayed 81 mg PO QAM 02/17/22 02/17/22 History release (Enteric Coated Aspirin) atorvastatin 80 mg tablet 80 mg PO QAM 02/17/22 02/17/22 History carvedilol 6.25 mg tablet 6.25 mg PO BID 02/17/22 02/17/22 History cholecalciferol (vitamin D3) 25 2,000 units PO QAM 02/17/22 02/17/22 History mcg (1,000 unit) capsule lorazepam 0.5 mg tablet 0.5 mg SUBLINGUAL BID PRN 02/17/22 02/17/22 History losartan 100 1 tab PO QAM 02/17/22 02/17/22 History mg-hydrochlorothiazide 25 mg tablet omega 7-ixq-xpz-fish oil 1,000 mg 1 cap PO QAM 02/17/22 02/17/22 History (120 mg-180 mg) capsule (Fish Oil) polyethylene glycol 3350 17 17 g PO QAM 02/17/22 02/17/22 History gram/dose oral powder (Miralax) Patient History Medical History (Updated 02/17/22 @ 13:21 by Tigre Holman MD) Abdominal pain CAD, multiple vessel CKD (chronic kidney disease), 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 Diastolic CHF History of prostate cancer Hyperlipidemia Hypertension Hypertensive emergency Obstructive sleep apnea Stage 3 chronic kidney disease Surgical History History of cataract surgery History of colonoscopy History of prostate surgery Hx of CABG S/P hip replacement Family History Denies family history of Ovarian cancer Prostate cancer Kidney disease Myocardial infarction Breast cancer Colorectal cancer Social History Smoking Status: Former smoker Tobacco Type: Cigars Age Started Using Tobacco: 24; Age Quit Using Tobacco: 49; Second Hand Exposure: No; Hx Alcohol Use: No Hx Substance Use: No Preferred Language: Czech Communication Ability: Effective Visual Impairment: Limited Hearing Ability: Use of Hearing Aid Family And Consumer Education Teacher Required: No Beliefs That Will Affect Care: None marital status: / Current Living Situation: Personal Care Facility current occupational status: 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 Feels Safe at Home: Yes Safety Concerns: Feels Safe At This Time Childhood Exposure to Second-Hand Smoke: Yes caffeine: No during the past year weight has: remained stable Dental Care, Regularly: No Physical Activity Frequency: Does not Exercise Seatbelt Use: always Sunscreen Use: No Assistive Devices: Cane, Denture - Upper, Denture - Lower, Hearing Aid - Bilateral and Oxygen - Continuous Review of Systems Review of Systems: All systems reviewed & are unremarkable except as noted in HPI & below Physical Exam Physical Exam: Constitutional: Elderly and obese appearing male no apparent distress laying in bed. Nasal cannula in place. Eyes: Pupils are equal round and reactive to light. Conjunctivae are normal. Anicteric sclera. Ears nose, mouth and throat: Mallampati class 2. Normal posterior oropharynx. Uvula is midline. Neck: Trachea is midline. Visual inspection is normal. Respiratory: Diminished lung sounds bilaterally. No wheezes. Mild crackles. Cardiovascular: Regular rate and rhythm. 2 out of 6 systolic flow murmur. 1+ edema in the lower extremities. Gastrointestinal: Distended. Tender to palpation diffusely. No guarding. Musculoskeletal: No cyanosis. Patient is able to move all extremities. Skin: No rashes, warm dry and intact. Neurologic: No obvious focal neurological deficits seen. Psychiatric: Alert and oriented x3 with a euthymic affect. Results & Data Results & Data ([facility]) Vital Signs (Past 12 Hours) Vital Signs Temp Pulse Pulse Resp BP BP Pulse Ox 02/17/22 12:18 36.8 C 83 24 217/109 H 98 02/17/22 11:15 64 15 167/89 H 99 02/17/22 11:00 64 15 167/86 H 100 02/17/22 10:45 64 17 178/91 H 97 02/17/22 10:30 62 15 162/82 H 98 02/17/22 10:15 67 7 L 167/86 H 98 02/17/22 10:00 68 18 163/99 H 95 02/17/22 09:45 66 14 180/87 H 96 02/17/22 09:30 62 3 L 177/81 H 96 02/17/22 09:15 62 16 178/83 H 96 02/17/22 09:00 59 L 20 169/97 H 97 02/17/22 08:45 65 21 196/92 H 96 02/17/22 08:30 67 20 189/87 H 95 02/17/22 08:16 66 20 184/84 H 94 02/17/22 08:00 65 16 171/91 H 93 02/17/22 07:53 92 H 22 93 02/17/22 07:45 68 18 172/89 H 91 02/17/22 07:30 72 21 167/77 H 94 02/17/22 07:15 75 23 161/76 H 92 02/17/22 07:00 87 27 H 191/110 H 93 02/17/22 06:59 90 28 H 45 L 02/17/22 06:55 91 H 27 H 204/106 H 94 02/17/22 06:51 95 H 28 H 222/119 H 92 02/17/22 06:48 100 H 28 H 94 02/17/22 06:47 100 H 28 H 94 02/17/22 06:45 106 H 29 H 93 02/17/22 06:30 105 H 27 H 96 02/17/22 06:16 98 02/17/22 06:15 96 H 28 H 97 02/17/22 06:07 36.4 C L 110 H 26 H 235/135 H 97 Coding Level of Care Code Critical Care 1st 30-74 mins Diagnoses Hypertensive emergency I16.1 Acute on chronic diastolic CHF (congestive heart failure) I50.33 CAD, multiple vessel I25.10 SOB (shortness of breath) R06.02 Abdominal pain R10.9 CKD (chronic kidney disease), stage IV N18.4 Time Spent (min) 36
--- NOTE | 2022-02-17 13:59 | Cardiology Consultation ---
Date of Consultation February 17, 2022 Assessment & Plan (1) Hypertensive emergency: (2) Elevated troponin: (3) Acute on chronic diastolic CHF (congestive heart failure): (4) CAD, multiple vessel: 1. Acute decompensated diastolic heart failure: This dyspnea most likely related to worsening pulmonary edema. He does have a history of underlying lung disease as well. Certainly he has had symptoms of dyspnea for many years. It is possible they had some dietary indiscretion as described in the history and physical. It is also possible that his blood pressure is poorly controlled and this can easily precipitate worsening diastolic failure. He seems to have responded to immediate interventions including application of topical nitrates and diuretics. Currently prescribed Lasix 60 mg IV twice daily. We can monitor his electrolytes, renal function and clinical response. He will likely need to be discharged on some diuretic regimen more than just hydrochlorothiazide. 2. Hypertension: Likely precipitant for some of his symptoms. Currently on a nitroglycerin infusion. Carvedilol was substituted for metoprolol at the last hospitalization. He will likely need some additional agents such as hydralazine or amlodipine. 3. Chest pain: His symptoms were described as abdominal discomfort to me. Did have a mild elevation In his cardiac biomarkers at the time of admission. However these did not change significantly and are likely more related to his significant hypertension and decompensated heart failure rather than an acute coronary syndrome. I think we can safely discontinue heparin. 4. Coronary disease: He does not describe symptoms of exertional chest pain or angina. His revascularization was quite remote, but he is also quite sedentary. Will continue secondary prevention including daily aspirin and high-dose atorvastatin. 5. Bifascicular block: Right bundle-branch block and left anterior fascicular block. Only symptoms of dizziness occur when bending over and standing up. No other concerning symptoms. He was on high-dose beta-blockade at the last admission. Certainly tolerating his low-dose carvedilol at this point. History of Present Illness Reason for Consultation: Shortness of breath, chest pain Requesting Physician: Madeleine Attending Physician: Ilia Salvador MD History of Present Illness The patient is an 81-year-old gentleman with a history of coronary artery disease having previously undergone surgical revascularization in 2004. He was recently discharged from the hospital after an exacerbation of diastolic heart failure. This was in December of this year. According to the patient he has continued to have some symptoms of dyspnea at his assisted living facility. This has limited his ambulation to some degree. He states that he does very little activity and has taken to ambulating with a cane as well. He attributes most of his difficulties breathing problems. He feels that this has been progressive over 40 years. Over the past several days he has taken to sleeping in a recliner. Last night he apparently was given a sedative to help him sleep in this morning he was notably short of breath. He is brought to the emergency room where he was felt to be hypoxic and felt to have significant pulmonary edema. Patient underwent application of nitroglycerin and intravenous diuretics with improvement in his symptoms. He did complain of some chest discomfort at the time of presentation. However, at the time of my interview the patient did not report chest pain but more abdominal discomfort and bloating. He did not endorse symptoms of chest pain at other times. He states that he occasionally has some dizziness if he bends over and sits up. He has a history of vertigo but does not move his head rapidly to avoid symptoms. He did not report any sense of palpitation. He is unsure if he has lower extremity edema as he does not check his legs. Allergies Allergy/AdvReac Type Severity Reaction Status Date / Time amlodipine Allergy Unknown Unverified 02/17/22 07:51 aspirin Allergy Unknown Unverified 02/17/22 12:52 atorvastatin Allergy Unknown Unverified 02/17/22 12:52 Home Medications Medication Instructions Recorded Confirmed Type nitroglycerin 0.4 mg sublingual 0.4 mg SL .COMPLEX #25 tab 04/14/19 02/17/22 Rx tablet ferrous sulfate 325 mg (65 mg 325 mg PO BID tab 05/31/19 02/17/22 History iron) tablet albuterol sulfate 90 mcg/actuation 1 inh INHALATION Q4H PRN 12/10/21 02/17/22 History breath activated powder inhaler,sensor fesoterodine 4 mg tablet,extended 4 mg PO QAM 12/10/21 02/17/22 History release 24 hr (Toviaz) umeclidinium 62.5 mcg-vilanterol 1 inh INHALATION QAM 12/10/21 02/17/22 History 25 mcg/actuation powdr for inhalation (Anoro Ellipta) acetaminophen 650 mg 1,300 mg PO Q8H PRN 02/17/22 02/17/22 History tablet,extended release (Arthritis Pain Relief (acetaminophen) ER) aspirin 81 mg tablet,delayed 81 mg PO QAM 02/17/22 02/17/22 History release (Enteric Coated Aspirin) atorvastatin 80 mg tablet 80 mg PO QAM 02/17/22 02/17/22 History carvedilol 6.25 mg tablet 6.25 mg PO BID 02/17/22 02/17/22 History cholecalciferol (vitamin D3) 25 2,000 units PO QAM 02/17/22 02/17/22 History mcg (1,000 unit) capsule lorazepam 0.5 mg tablet 0.5 mg SUBLINGUAL BID PRN 02/17/22 02/17/22 History losartan 100 1 tab PO QAM 02/17/22 02/17/22 History mg-hydrochlorothiazide 25 mg tablet omega 3-vtg-hvn-fish oil 1,000 mg 1 cap PO QAM 02/17/22 02/17/22 History (120 mg-180 mg) capsule (Fish Oil) polyethylene glycol 3350 17 17 g PO QAM 02/17/22 02/17/22 History gram/dose oral powder (Miralax) Patient History Medical History (Updated 02/17/22 @ 13:21 by Tigre Holman MD) Abdominal pain CAD, multiple vessel CKD (chronic kidney disease), 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 Diastolic CHF History of prostate cancer Hyperlipidemia Hypertension Hypertensive emergency Obstructive sleep apnea Stage 3 chronic kidney disease Surgical History History of cataract surgery History of colonoscopy History of prostate surgery Hx of CABG S/P hip replacement Family History Denies family history of Ovarian cancer Prostate cancer Kidney disease Myocardial infarction Breast cancer Colorectal cancer Social History Smoking Status: Former smoker Tobacco Type: Cigars Age Started Using Tobacco: 24; Age Quit Using Tobacco: 49; Second Hand Exposure: No; Hx Alcohol Use: No Hx Substance Use: No Preferred Language: Nepali Communication Ability: Effective Visual Impairment: Limited Hearing Ability: Use of Hearing Aid Order Checker Packer Processer Required: No Beliefs That Will Affect Care: None marital status: / Current Living Situation: Personal Care Facility current occupational status: 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 Patient also describes urinary frequency. Some stress incontinence. Physical Exam Physical Exam: The patient is alert and oriented. Mood and affect appeared normal. He answered all questions appropriately. HEENT: Pupils are equal and reactive to light and accommodation. Extraocular movements are intact. The sclerae are anicteric. Neuro: Cranial nerves intact Lungs: Normal respiratory effort. Some reduced breath sounds bilaterally. Occasional crackles to bases. No expiratory wheezing. No upper respiratory sounds. Cardiac: Heart demonstrates a regular rate and rhythm with frequent ectopy. Normal S1 and S2. Crescendo systolic murmur Pulses: The patient has palpable radial pulses bilaterally that are equal in intensity Extremities: There was no evidence of hypoperfusion. There is no cyanosis or clubbing. Mild bilateral lower extremity edema Skin: I did not appreciate any rashes on examination today. Results & Data ([facility]) Vital Signs (Past 12 Hours) Vital Signs Temp Pulse Pulse Resp BP BP Pulse Ox 02/17/22 13:22 81 20 176/95 H 95 02/17/22 13:15 79 27 H 204/111 H 96 02/17/22 13:09 82 27 H 204/111 H 96 02/17/22 13:01 81 27 H 223/113 H 96 02/17/22 13:00 85 25 H 96 02/17/22 12:46 87 32 H 229/111 H 98 02/17/22 12:45 86 31 H 97 02/17/22 12:42 85 22 233/115 H 98 02/17/22 12:30 82 23 99 02/17/22 12:23 84 26 H 230/106 H 99 02/17/22 12:21 85 26 H 220/112 H 98 02/17/22 12:18 36.8 C 83 24 217/109 H 98 02/17/22 12:15 84 25 H 222/105 H 98 02/17/22 12:11 85 20 02/17/22 11:45 69 19 167/90 H 92 02/17/22 11:30 68 17 174/84 H 99 02/17/22 11:15 64 15 167/89 H 99 02/17/22 11:00 64 15 167/86 H 100 02/17/22 10:45 64 17 178/91 H 97 02/17/22 10:30 62 15 162/82 H 98 02/17/22 10:15 67 7 L 167/86 H 98 02/17/22 10:00 68 18 163/99 H 95 02/17/22 09:45 66 14 180/87 H 96 02/17/22 09:30 62 3 L 177/81 H 96 02/17/22 09:15 62 16 178/83 H 96 02/17/22 09:00 59 L 20 169/97 H 97 02/17/22 08:45 65 21 196/92 H 96 02/17/22 08:30 67 20 189/87 H 95 02/17/22 08:16 66 20 184/84 H 94 02/17/22 08:00 65 16 171/91 H 93 02/17/22 07:53 92 H 22 93 02/17/22 07:45 68 18 172/89 H 91 02/17/22 07:30 72 21 167/77 H 94 02/17/22 07:15 75 23 161/76 H 92 02/17/22 07:00 87 27 H 191/110 H 93 02/17/22 06:59 90 28 H 45 L 02/17/22 06:55 91 H 27 H 204/106 H 94 02/17/22 06:51 95 H 28 H 222/119 H 92 02/17/22 06:48 100 H 28 H 94 02/17/22 06:47 100 H 28 H 94 02/17/22 06:45 106 H 29 H 93 02/17/22 06:30 105 H 27 H 96 02/17/22 06:16 98 02/17/22 06:15 96 H 28 H 97 02/17/22 06:07 36.4 C L 110 H 26 H 235/135 H 97 Pulse Ox 02/17/22 13:22 02/17/22 13:15 02/17/22 13:09 02/17/22 13:01 02/17/22 13:00 02/17/22 12:46 02/17/22 12:45 02/17/22 12:42 02/17/22 12:30 02/17/22 12:23 02/17/22 12:21 02/17/22 12:18 02/17/22 12:15 95 02/17/22 12:11 02/17/22 11:45 02/17/22 11:30 02/17/22 11:15 02/17/22 11:00 02/17/22 10:45 02/17/22 10:30 02/17/22 10:15 02/17/22 10:00 02/17/22 09:45 02/17/22 09:30 02/17/22 09:15 02/17/22 09:00 02/17/22 08:45 02/17/22 08:30 02/17/22 08:16 02/17/22 08:00 02/17/22 07:53 02/17/22 07:45 02/17/22 07:30 02/17/22 07:15 02/17/22 07:00 02/17/22 06:59 02/17/22 06:55 02/17/22 06:51 02/17/22 06:48 02/17/22 06:47 02/17/22 06:45 02/17/22 06:30 02/17/22 06:16 02/17/22 06:15 02/17/22 06:07 Laboratory Results Abnormal Lab Results 02/17/22 02/17/22 02/17/22 06:19 06:19 06:19 WBC 16.91 H RBC 4.09 L Hgb 12.7 L Hct 37.3 L MCV 91.2 MCH 31.1 MCHC 34.0 RDW Std Deviation 42.4 RDW Coeff of Natalie 12.7 Plt Count 284 MPV 12.1 H Immature Gran % (Auto) 0.4 Neut % (Auto) 74.2 Lymph % (Auto) 11.9 [place] % (Auto) 9.6 Eos % (Auto) 3.4 Baso % (Auto) 0.5 Neut # (Auto) 12.55 H Lymph # (Auto) 2.01 [place] # (Auto) 1.62 H Eos # (Auto) 0.58 H Baso # (Auto) 0.09 Immature Gran # (Auto) 0.06 H PT 10.9 INR 1.0 APTT 26.0 PTT Ratio 0.9 Sodium 138 Potassium TNP Chloride 105 Carbon Dioxide 26 Anion Gap 7 BUN 47 H Creatinine 2.42 H Est Cr Clr Drug Dosing 26.8 Est GFR ( Amer) 27.8 Est GFR (Non-Af Amer) 24.0 BUN/Creatinine Ratio 19.4 Glucose 134 H Lactate Calcium 9.2 Magnesium 1.9 Total Bilirubin 0.6 AST TNP ALT 13 Alkaline Phosphatase 74 Troponin I High Sens 327.5 H* B-Natriuretic Peptide Total Protein 6.8 Albumin 3.7 Globulin 3.1 Albumin/Globulin Ratio 1.2 Urine Color Urine Appearance Urine pH Ur Specific [place] Urine Protein Urine Glucose (UA) Urine Ketones Urine Blood Urine Nitrite Urine Bilirubin Urine Urobilinogen Ur Leukocyte Esterase Urine WBC (Auto) Urine RBC (Auto) U Hyaline Cast (Auto) U Epithel Cells (Auto) Urine Bacteria (Auto) SARS-CoV-2 (PCR) Influenza Type A (PCR) Influenza Type B (PCR) RSV (RT-PCR) 02/17/22 02/17/22 02/17/22 07:00 07:00 07:00 WBC RBC Hgb Hct MCV MCH MCHC RDW Std Deviation RDW Coeff of [place] Plt Count MPV Immature Gran % (Auto) Neut % (Auto) Lymph % (Auto) [place] % (Auto) Eos % (Auto) Baso % (Auto) Neut # (Auto) Lymph # (Auto) [place] # (Auto) Eos # (Auto) Baso # (Auto) Immature Gran # (Auto) PT INR APTT PTT Ratio Sodium Potassium Chloride Carbon Dioxide Anion Gap BUN Creatinine Est Cr Clr Drug Dosing Est GFR ( Amer) Est GFR (Non-Af Amer) BUN/Creatinine Ratio Glucose Lactate 0.8 Calcium Magnesium Total Bilirubin AST ALT Alkaline Phosphatase Troponin I High Sens B-Natriuretic Peptide 2317 H Total Protein Albumin Globulin Albumin/Globulin Ratio Urine Color Yellow Urine Appearance Clear Urine pH 5.0 Ur Specific [place] 1.016 Urine Protein 4+ H Urine Glucose (UA) Trace H Urine Ketones Negative Urine Blood 1+ H Urine Nitrite Negative Urine Bilirubin Negative Urine Urobilinogen Negative Ur Leukocyte Esterase Negative Urine WBC (Auto) 1-5 Urine RBC (Auto) 5-10 H U Hyaline Cast (Auto) 1-5 U Epithel Cells (Auto) 20-30 H Urine Bacteria (Auto) Negative SARS-CoV-2 (PCR) Influenza Type A (PCR) Influenza Type B (PCR) RSV (RT-PCR) 02/17/22 02/17/22 02/17/22 07:05 07:35 11:46 WBC RBC Hgb Hct MCV MCH MCHC RDW Std Deviation RDW Coeff of Natalie Plt Count MPV Immature Gran % (Auto) Neut % (Auto) Lymph % (Auto) [place] % (Auto) Eos % (Auto) Baso % (Auto) Neut # (Auto) Lymph # (Auto) [place] # (Auto) Eos # (Auto) Baso # (Auto) Immature Gran # (Auto) PT INR APTT PTT Ratio Sodium Potassium 4.1 Chloride Carbon Dioxide Anion Gap BUN Creatinine Est Cr Clr Drug Dosing Est GFR ( Amer) Est GFR (Non-Af Amer) BUN/Creatinine Ratio Glucose Lactate Calcium Magnesium Total Bilirubin AST 15 ALT Alkaline Phosphatase Troponin I High Sens 310.1 H* B-Natriuretic Peptide Total Protein Albumin Globulin Albumin/Globulin Ratio Urine Color Urine Appearance Urine pH Ur Specific [place] Urine Protein Urine Glucose (UA) Urine Ketones Urine Blood Urine Nitrite Urine Bilirubin Urine Urobilinogen Ur Leukocyte Esterase Urine WBC (Auto) Urine RBC (Auto) U Hyaline Cast (Auto) U Epithel Cells (Auto) Urine Bacteria (Auto) SARS-CoV-2 (PCR) NEGATIVE Influenza Type A (PCR) Negative Influenza Type B (PCR) Negative RSV (RT-PCR) Negative Diagnostic Findings Chest x-ray obtained today revealed moderate pulmonary edema. Echocardiogram performed 12/10/2021: Normal LV systolic function with ejection fraction of 55-60%. Mild left atrial dilation. Mild aortic stenosis. Mild mitral regurgitation. CABG 2005: Dean to LAD, saphenous vein graft to PDA, saphenous vein graft to diagonal and OM1 (sequential) ECG Additional Comments: EKG obtained the time admission reveals normal sinus rhythm with occasional PVCs. Right bundle branch block. PG Care Time/CCT Total # of Minutes Spent Total Time Spent with Patient: Total time spent is greater than 50% in coordination of care (as documented) at patient's floor/unit and/or counseling patient: Coding Level of Care Code 28823 Initial Inpt Care Lvl 3 Diagnoses Hypertensive emergency I16.1 Elevated troponin R77.8 Acute on chronic diastolic CHF (congestive heart failure) I50.33 CAD, multiple vessel I25.10
[2022-02-17 14:06] LABS: iSTAT Arterial Blood Gas HCO3 27 meg/L (19-24); iSTAT Arterial Blood Gas pCO2 61 mmHg (35-46); iSTAT Arterial Blood Gas pH 7.26 (7.35-7.45); iSTAT Arterial Blood Gas pO2 107 mmHg (80-95); iSTAT Carbon Dioxide 29 mmol/L (24-31)
[2022-02-17 14:07] LABS: iSTAT Sample Type Arterial
--- NOTE | 2022-02-17 14:20 | Electrocardiogram Report ---
Test Reason : Blood Pressure : / mmHG Vent. Rate : 078 BPM Atrial Rate : 065 BPM P-R Int : 210 ms QRS Dur : 162 ms QT Int : 452 ms P-R-T Axes : 042 -83 113 degrees QTc Int : 515 ms Sinus rhythm with sinus arrhythmia with 1st degree A-V block with occasional Premature ventricular co mplexes Left axis deviation Right bundle branch block Left anterior fascicular block Abnormal ECG Confirmed by Raulito Ruvalcaba ([id number]) on 02/17/2022 2:20:46 PM Referred By: [facility] Confirmed By:Rohit Ruvalcaba
--- NOTE | 2022-02-17 14:20 | Electrocardiogram Report ---
Test Reason : Blood Pressure : / mmHG Vent. Rate : 087 BPM Atrial Rate : 087 BPM P-R Int : 224 ms QRS Dur : 152 ms QT Int : 402 ms P-R-T Axes : 051 -79 069 degrees QTc Int : 483 ms Sinus rhythm with 1st degree A-V block with occasional Premature ventricular complexes Possible Left atrial enlargement Left axis deviation Right bundle branch block Abnormal ECG When compared with ECG of 10-DEC-2021 04:01, T wave inversion no longer evident in Inferior leads Confirmed by Raulito Ruvalcaba ([id number]) on 02/17/2022 2:20:19 PM Referred By: Confirmed By:Rohit Ruvalcaba
--- NOTE | 2022-02-17 14:54 | CT Scan Report ---
CT chest diagnostic wo con CT DOSE: 1471.04 mGycm HISTORY: Atypical chest pain TECHNIQUE: Multiaxial CT images of the chest were performed without contrast. A dose lowering techni que was utilized adhering to the principles of ALARA. COMPARISON: Chest CT 01/10/2020. FINDINGS: The central airways are patent. No pneumothorax. Mild respiratory motion artifact. Punctate calcified granuloma within the right lung apex. Stable 4 mm groundglass nodule within the right uppe r lobe on image 68. This remains unchanged compared to 2018 neck CTA and is therefore considered to b e benign. No new pulmonary nodules identified. Moderate bilateral pleural effusions which are new fro m the prior study. Consolidation within the majority of the bilateral lower lobes. This favors compre ssive atelectasis from the pleural effusions. A superimposed pneumonia could also have a similar appe arance. Mild body wall edema is noted. Normal esophagus. Please refer to the same day abdomen and pel vis CT for further evaluation of the abdominal structures. The heart is mildly enlarged. Calcified pl aque within the normal caliber thoracic aorta. The ascending thoracic aorta measures up to 3.7 cm in diameter. No mediastinal or hilar lymphadenopathy. No suspicious lytic or blastic osseous lesions. Th ere are poststernotomy changes. Small left-sided calcified pleural plaque remains unchanged. IMPRESSION: 1. Stable 4 mm groundglass nodule within the right lung apex. Consider additional one year chest CT f ollow-up to ensure stability. 2. No new pulmonary nodules identified. 3. Interval development of moderate bilateral pleural effusions. 4. Stable cardiomegaly. 5. Consolidation within the majority of the bilateral lower lobes favors compressive atelectasis from the pleural effusions. Superimposed pneumonia could also have a similar appearance in the appropriat e clinical setting. ACT 112: Negative or not required by law. Electronically signed by: Lamonte Napier M.D. 02/17/2022 2:52 PM
--- NOTE | 2022-02-17 14:57 | CT Scan Report ---
CT OF THE ABDOMEN AND PELVIS WITHOUT CONTRAST CLINICAL HISTORY: Abdominal pain. COMPARISON STUDY: Renal ultrasound May 22, 2013. MRI of the pelvis October 11, 2011. TECHNIQUE: Axial images of the abdomen and pelvis were obtained without IV contrast. Images were revi ewed in the axial, sagittal, and coronal planes. Automated exposure control was utilized for the cachorro dy. A dose lowering technique was utilized adhering to the principles of ALARA. FINDINGS: Please note that the chest CT will be reported separately. Bilateral pleural effusions are better depicted on that exam. There is cardiomegaly. No pneumatosis, free air or portal venous gas is present. Evaluation of the abdomen and pelvis is suboptimal on this unenhanced examination. The live r, spleen, adrenal glands and pancreas are unremarkable with exception of a 1.2 cm cystic lesion with in the pancreatic head which contains layering calcification. Although indeterminate, this is probabl y benign There is no biliary or pancreatic ductal dilatation. There is no evidence for a bowel obstru ction. Colonic diverticulosis is noted without evidence for acute diverticulitis. No lymphadenopathy is present. Water attenuation bilateral renal lesions favor cysts although are suboptimally assessed on this unenhanced exam. There are numerous subcentimeter hyperdense renal lesions which are also sub optimally assessed on this exam. These are indeterminate but may reflect hyperdense cysts. An indeter minate 1.8 cm lesion within the anterior cortex of the lower pole of the right kidney is noted on axi al image 225 of 481. Bladder is moderately distended. The Sorensen balloon is inflated within the bulbar portion of the urethra. This is malpositioned. Images of the pelvis are degraded by streak artifact from bilateral hip arthroplasties. No acute fracture or suspicious lesion within the visualized skele darell structures is present. Prostate is likely surgically absent. IMPRESSION: 1. Malpositioned Sorensen catheter. Balloon inflated within the bulbar portion of the urethra and should be repositioned. Moderately distended bladder. No hydronephrosis. This finding will be called/faxed to the ordering provider at time of dictation. 2. Bilateral pleural effusions, better depicted on the chest CT which will be reported separately. 3. No bowel obstruction. No bowel wall thickening on unenhanced exam. 4. Multiple water attenuation and hyperdense bilateral renal lesions. These are suboptimally assessed on this unenhanced exam but may reflect a combination of simple and hyperdense cysts. Indeterminate 1.8 cm right renal lesion. This can be assessed with a nonemergent renal protocol MRI to exclude a so lid renal lesion. ACT 112: Negative or not required by law. Electronically signed by: Gopi Huntley M.D. 02/17/2022 2:55 PM
[2022-02-17] MEDS: ACETAMINOPHEN 325 MG TAB PO PRN (15:41)
[2022-02-17] MEDS: ATORVASTATIN 40 MG TAB PO SCH (15:41)
[2022-02-17] MEDS: UMECLIDINIUM/VILANTEROL 62.5/25MCG 7 PUFFS/INHALER INH SCH (15:42)
[2022-02-17] MEDS: FUROSEMIDE 40 MG/4 ML VIAL IV SCH (17:17)
--- NOTE | 2022-02-17 18:04 | Urology Consultation ---
Date of Consultation February 17, 2022 Assessment & Plan (1) Bladder neck contracture: (2) Prostate cancer: After assessing the situation and suspecting a bladder neck contracture I removed the indwelling catheter that was present on arrival I sterilely prepped and draped him and passed a 5 [place] open-ended catheter per urethra. I felt resistance near the presumed bladder neck at approximately the 20 cm any on the catheter and with gentle manipulation I was able to guide this through the lumen and into the bladder. There was return of a small amount of clear urine through the lumen of the 5 [place] open-ended catheter. I then positioned a wire into the bladder and remove the 5 [place] open-ended catheter. I utilized Amelie style dilators to dilate his bladder neck to 18 Venezuelan. He tolerated this well. There was return of clear urine with each passage of the dilator. I then placed a 16 [place] tip catheter over the wire. He immediately began draining clear urine. He tolerated the procedure extremely well. Plan Leave catheter until medically stable and okay for removal He can follow-up as an outpatient with ushe has not been seen in our office in 4+ years and likely should reestablish secondary to his history of prostate cancer Please call if further issues during this hospitalization History of Present Illness Attending Physician: Ilia Salvador MD History of Present Illness 81-year-old gentleman with a history of prostate cancer status post radical retropubic prostatectomy 10+ years ago He has had progressive urinary difficulties recently with increased incontinence and some sensation of incomplete emptying He had numerous attempts at catheter placement today which were all unsuccessful He had a CT which demonstrates catheter positioned in the urethra I suspect he has a bladder neck contracture and we were called to assist with catheter placement Allergies Allergy/AdvReac Type Severity Reaction Status Date / Time amlodipine Allergy Unknown Unverified 02/17/22 07:51 aspirin Allergy Unknown Unverified 02/17/22 12:52 atorvastatin Allergy Unknown Unverified 02/17/22 12:52 Home Medications Medication Instructions Recorded Confirmed Type nitroglycerin 0.4 mg sublingual 0.4 mg SL .COMPLEX #25 tab 04/14/19 02/17/22 Rx tablet ferrous sulfate 325 mg (65 mg 325 mg PO BID tab 05/31/19 02/17/22 History iron) tablet albuterol sulfate 90 mcg/actuation 1 inh INHALATION Q4H PRN 12/10/21 02/17/22 History breath activated powder inhaler,sensor fesoterodine 4 mg tablet,extended 4 mg PO QAM 12/10/21 02/17/22 History release 24 hr (Toviaz) umeclidinium 62.5 mcg-vilanterol 1 inh INHALATION QAM 12/10/21 02/17/22 History 25 mcg/actuation powdr for inhalation (Anoro Ellipta) acetaminophen 650 mg 1,300 mg PO Q8H PRN 02/17/22 02/17/22 History tablet,extended release (Arthritis Pain Relief (acetaminophen) ER) aspirin 81 mg tablet,delayed 81 mg PO QAM 02/17/22 02/17/22 History release (Enteric Coated Aspirin) atorvastatin 80 mg tablet 80 mg PO QAM 02/17/22 02/17/22 History carvedilol 6.25 mg tablet 6.25 mg PO BID 02/17/22 02/17/22 History cholecalciferol (vitamin D3) 25 2,000 units PO QAM 02/17/22 02/17/22 History mcg (1,000 unit) capsule lorazepam 0.5 mg tablet 0.5 mg SUBLINGUAL BID PRN 02/17/22 02/17/22 History losartan 100 1 tab PO QAM 02/17/22 02/17/22 History mg-hydrochlorothiazide 25 mg tablet omega 7-wfb-coc-fish oil 1,000 mg 1 cap PO QAM 02/17/22 02/17/22 History (120 mg-180 mg) capsule (Fish Oil) polyethylene glycol 3350 17 17 g PO QAM 02/17/22 02/17/22 History gram/dose oral powder (Miralax) Patient History Medical History Abdominal pain CAD, multiple vessel CKD (chronic kidney disease), 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 Diastolic CHF History of prostate cancer Hyperlipidemia Hypertension Hypertensive emergency Obstructive sleep apnea Stage 3 chronic kidney disease Surgical History History of cataract surgery History of colonoscopy History of prostate surgery Hx of CABG S/P hip replacement Family History Denies family history of Ovarian cancer Prostate cancer Kidney disease Myocardial infarction Breast cancer Colorectal cancer Social History Smoking Status: Former smoker Tobacco Type: Cigars Age Started Using Tobacco: 24; Age Quit Using Tobacco: 49; Second Hand Exposure: No; Hx Alcohol Use: No Hx Substance Use: No Preferred Language: Ethiopian Communication Ability: Effective Visual Impairment: Limited Hearing Ability: Use of Hearing Aid Commutator Inspector Required: No Beliefs That Will Affect Care: None marital status: / Current Living Situation: Personal Care Facility current occupational status: 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 Physical Exam Physical Exam: Resting comfortably Nasal cannula O2 in place No respiratory distress Not tachycardic Abdomen soft with suprapubic area distended consistent with a full bladder Sorensen catheter is present -significant blood draining, minimal urine, significant amount of thick catheter appears to be visible externally to the penis implying a urethral position Mild edema of the hands and feet Results & Data ([facility]) Vital Signs (Past 12 Hours) Vital Signs Temp Pulse Pulse Resp BP BP Pulse Ox 02/17/22 16:15 74 25 H 172/87 H 96 02/17/22 16:00 68 25 H 179/96 H 94 02/17/22 15:45 71 29 H 187/100 H 96 02/17/22 15:30 78 29 H 164/90 H 96 02/17/22 15:15 75 27 H 182/98 H 94 02/17/22 15:00 71 24 183/91 H 93 02/17/22 14:45 73 21 191/126 H 95 02/17/22 14:30 74 24 95 02/17/22 14:24 76 24 200/99 H 95 02/17/22 14:21 76 19 02/17/22 13:45 69 25 H 196/88 H 97 02/17/22 13:30 69 22 198/89 H 95 02/17/22 13:22 81 20 176/95 H 95 02/17/22 13:15 79 27 H 204/111 H 96 02/17/22 13:09 82 27 H 204/111 H 96 02/17/22 13:01 81 27 H 223/113 H 96 02/17/22 13:00 85 25 H 96 02/17/22 12:46 87 32 H 229/111 H 98 02/17/22 12:45 86 31 H 97 02/17/22 12:42 85 22 233/115 H 98 02/17/22 12:30 82 23 99 02/17/22 12:23 84 26 H 230/106 H 99 02/17/22 12:21 85 26 H 220/112 H 98 02/17/22 12:18 36.8 C 83 24 217/109 H 98 02/17/22 12:15 84 25 H 222/105 H 98 02/17/22 12:11 85 20 02/17/22 11:45 69 19 167/90 H 92 02/17/22 11:30 68 17 174/84 H 99 02/17/22 11:15 64 15 167/89 H 99 02/17/22 11:00 64 15 167/86 H 100 02/17/22 10:45 64 17 178/91 H 97 02/17/22 10:30 62 15 162/82 H 98 02/17/22 10:15 67 7 L 167/86 H 98 02/17/22 10:00 68 18 163/99 H 95 02/17/22 09:45 66 14 180/87 H 96 02/17/22 09:30 62 3 L 177/81 H 96 02/17/22 09:15 62 16 178/83 H 96 02/17/22 09:00 59 L 20 169/97 H 97 02/17/22 08:45 65 21 196/92 H 96 02/17/22 08:30 67 20 189/87 H 95 02/17/22 08:16 66 20 184/84 H 94 02/17/22 08:00 65 16 171/91 H 93 02/17/22 07:53 92 H 22 93 02/17/22 07:45 68 18 172/89 H 91 02/17/22 07:30 72 21 167/77 H 94 02/17/22 07:15 75 23 161/76 H 92 02/17/22 07:00 87 27 H 191/110 H 93 02/17/22 06:59 90 28 H 45 L 02/17/22 06:55 91 H 27 H 204/106 H 94 02/17/22 06:51 95 H 28 H 222/119 H 92 02/17/22 06:48 100 H 28 H 94 02/17/22 06:47 100 H 28 H 94 02/17/22 06:45 106 H 29 H 93 02/17/22 06:30 105 H 27 H 96 02/17/22 06:16 98 02/17/22 06:15 96 H 28 H 97 02/17/22 06:07 36.4 C L 110 H 26 H 235/135 H 97 Pulse Ox 02/17/22 16:15 02/17/22 16:00 02/17/22 15:45 02/17/22 15:30 02/17/22 15:15 02/17/22 15:00 02/17/22 14:45 02/17/22 14:30 02/17/22 14:24 02/17/22 14:21 02/17/22 13:45 02/17/22 13:30 02/17/22 13:22 02/17/22 13:15 02/17/22 13:09 02/17/22 13:01 02/17/22 13:00 02/17/22 12:46 02/17/22 12:45 02/17/22 12:42 02/17/22 12:30 02/17/22 12:23 02/17/22 12:21 02/17/22 12:18 02/17/22 12:15 95 02/17/22 12:11 02/17/22 11:45 02/17/22 11:30 02/17/22 11:15 02/17/22 11:00 02/17/22 10:45 02/17/22 10:30 02/17/22 10:15 02/17/22 10:00 02/17/22 09:45 02/17/22 09:30 02/17/22 09:15 02/17/22 09:00 02/17/22 08:45 02/17/22 08:30 02/17/22 08:16 02/17/22 08:00 02/17/22 07:53 02/17/22 07:45 02/17/22 07:30 02/17/22 07:15 02/17/22 07:00 02/17/22 06:59 02/17/22 06:55 02/17/22 06:51 02/17/22 06:48 02/17/22 06:47 02/17/22 06:45 02/17/22 06:30 02/17/22 06:16 02/17/22 06:15 02/17/22 06:07 PG Care Time/CCT Total # of Minutes Spent Total Time Spent with Patient: Total time spent is greater than 50% in coordination of care (as documented) at patient's floor/unit and/or counseling patient: Coding Level of Care Code 05034 Inpt Consult Level 4 Diagnoses Bladder neck contracture N32.0 Prostate cancer C61
[2022-02-18] MEDS: ACETAMINOPHEN 325 MG TAB PO PRN (00:13)
[2022-02-18] MEDS: NITROGLYCERIN/D5W 100MCG/ML 250 ML IV SCH ×2 (02:33→18:50)
[2022-02-18 06:28] LABS: Basophils # (auto) 0.03 K/uL (0-0.2); Basophils % (auto) 0.2 %; Eosinophils # (auto) 0.08 K/uL (0-0.5); Eosinophils % (auto) 0.7 %; Hematocrit (blood only) 29.1 % (42-52); Hemoglobin 9.7 g/dL (14.0-18.0); Immature Granulocytes # (auto) 0.02 K/uL (0.00-0.02); Immature Granulocytes % (auto) 0.2 %; Lymphocytes # (auto) 1.13 K/uL (1.2-3.4); Lymphocytes % (auto) 9.2 %; Mean Corpuscular Hemoglobin 30.3 pg (25-34); Mean Corpuscular Hgb Conc 33.3 g/dL (32-36); Mean Corpuscular Volume 90.9 fL (80-100); Mean Platelet Volume 13.1 fL (7.4-10.4); Monocytes # (auto) 1.67 K/uL (0.11-0.59); Monocytes % (auto) 13.7 %; Neutrophils # (auto) 9.29 K/uL (1.4-6.5); Platelet Count 199 K/uL (130-400); RDW Coefficient of Variation 12.9 % (11.5-14.5); White Blood Count 12.22 K/uL (4.8-10.8)
[2022-02-18 06:41] LABS: BUN Creatinine Ratio 19.7 (10-20); Calcium 8.8 mg/dl (8.5-10.1); Creatinine Clr Calc Pharmacy 22.3 ml/min; Est GFR (African American) 23.9 ml/min; Est GFR (Non-African American) 20.6 ml/min; Potassium 4.2 mmol/L (3.5-5.1)
[2022-02-18] MEDS ORDERED: PERFLUTREN LIPID MICROSPHERE (DEFINITY) IV ONE (07:00)
--- NOTE | 2022-02-18 07:37 | Hospitalist Progress Note ---
Date of Service February 18, 2022 Assessment & Plan (1) Acute on chronic diastolic CHF (congestive heart failure): Plan: HFPEF last EF 55-60% 12/10/2021, hypertension, multivessel CAD with history of CABG in 2014, and CKD 3, COPD ABG shows compensated hypercapnia. Acute on chronic diastolic CHF, with elevated troponin no significant trend or recommendations for further risk stratification from cardiology Chest pain improved with Nitropaste, Titrating nitro drip to off as Imdur has started, BiPAP, Lasix Heparin started with elevated troponin will complete 48 hours Troponin trended without significant concern for ACS Echo normal LV size with LVH EF 55-60 no wall motion abnormalities noted BNP 2317 dietary indiscretion with ham for holiday precipitated events COVID-negative, flu negative, RSV negative Stage III CKD care with diuresis Hyperlipidemia Atorvastatin 80 mg as noted History of CABG x4, no stents Aspirin continued atorvastatin continue Heparinized as above held with urethral bleeding will be eventually disconti nued and subcutaneous heparin begun Continue carvedilol 6.25 mg p.o. twice daily COPD Trace expiratory wheezing on admission On BiPAP Suspicion for acute exacerbation, suspect symptoms due to CHF as above Continue Anor-0Abnormal Ct chest will need follow up Patient had Sorensen balloon blown up in his urethra this was seen by urology had dealt with he has indwelling Sorensen catheter at this time DVT SCDs for now olson to subcu heparin on 02/19/2022 Diet: NPO pending improvement in resp status CODE STATUS: Full Dispo: ICU while titrating nitro gtt (2) Stage 3 chronic kidney disease: (3) COPD (chronic obstructive pulmonary disease) with emphysema: (4) Elevated troponin: (5) Obstructive sleep apnea: (6) Hyperlipidemia: Admission and Anticipated Discharge Date Admission Date: February 17, 2022 Subjective Patient is an awake and alert he is in a jovial mood, we are tapering off the nitro drip and starting Imdur cardiology and nephrology are following cardiology does not feel this is acute coronary syndrome and nephrology is following for acute kidney injury Review of Systems Review of Systems: Mild distress and fatigue no headache, no visual changes no speech or swallowing issues no chest pain, pressure or palpitations Persistent shortness of breath, cough or wheezes no abdominal pain, nausea or vomiting, diarrhea or constipation no dysuria, hematuria or frequency no focal joint pain or swelling no back pain, CVA tenderness or radicular pain no bruising, bleeding or rashes no focal signs of weakness or numbness or altered sensation no complaints of anxiety or depression.. Physical Exam Physical Exam: The patient appeared well nourished and normally developed. Vital signs as documented. Head exam is normocephalic atraumatic Neck is without JVD, thyromegaly, or carotid bruits. Lungs are diminished at the bases Cardiac exam, regular rate controlled systolic murmur Abdominal exam reveals normal bowel sounds, soft non tender, no masses Extremities are nonedematous and both pedal pulses are present Neurologic exam is alert and oriented, no focal loss of strength or sensation Skin is without bruises or rashes dried blood near his urethral meatus where the catheter is inserted Psychologically is without concerns for anxiety or depression.. Results & Data Results & Data ([facility]) Vital Signs (Past 12 Hours) Vital Signs Temp Pulse Resp BP Pulse Ox 02/18/22 06:01 75 24 168/73 H 97 02/18/22 05:30 65 15 133/71 98 02/18/22 05:00 72 19 159/72 H 97 02/18/22 04:30 71 21 159/71 H 94 02/18/22 04:29 74 22 167/79 H 97 02/18/22 04:21 77 21 174/84 H 96 02/18/22 04:00 97.9 F 82 33 H 155/114 H 90 02/18/22 03:30 78 26 H 161/89 H 93 02/18/22 03:00 79 26 H 150/78 H 95 02/18/22 02:30 70 16 151/71 H 96 02/18/22 02:00 80 22 148/74 H 96 02/18/22 01:30 72 17 149/85 H 96 02/18/22 01:00 71 22 145/67 H 95 02/18/22 00:30 78 25 H 155/82 H 95 02/18/22 00:00 97.9 F 77 23 142/90 H 95 02/17/22 23:30 77 29 H 153/79 H 94 02/17/22 23:00 79 26 H 145/72 H 95 02/17/22 22:30 78 20 155/80 H 94 02/17/22 22:00 76 17 153/78 H 95 02/17/22 21:31 87 22 161/78 H 91 02/17/22 21:00 72 14 141/72 H 95 02/17/22 20:30 81 22 151/66 H 96 02/17/22 20:15 85 26 H 163/85 H 94 02/17/22 20:00 98.2 F 77 22 159/74 H 95 02/17/22 19:45 79 21 145/81 H 95 PG Care Time/CCT Total # of Minutes Spent Total Time Spent with Patient: Total time spent is greater than 50% in coordination of care (as documented) at patient's floor/unit and/or counseling patient: Coding Level of Care Code 47866 Subseq Hosp Care Lvl 3 Diagnoses Acute on chronic diastolic CHF (congestive heart failure) I50.33 Stage 3 chronic kidney disease N18.3 COPD (chronic obstructive pulmonary disease) with emphysema J43.9 Elevated troponin R77.8 Obstructive sleep apnea G47.33 Hyperlipidemia E78.5
--- NOTE | 2022-02-18 08:33 | Critical Care Progress Note ---
Date of Service February 18, 2022 Assessment & Plan (1) Hypertensive emergency: (2) Acute on chronic diastolic CHF (congestive heart failure): (3) CAD, multiple vessel: (4) SOB (shortness of breath): (5) Abdominal pain: (6) CKD (chronic kidney disease), stage IV: (7) Bladder neck contracture: Plan: 81-year-old male with a past medical history of coronary artery disease status post CABG, TEENA, hypertension, morbid obesity, prostate cancer and CKD stage IV who presented to the hospital due to increasing shortness of breath. He has now moved to the ER due to hypertensive emergency associated with chest pain and shortness of breath. Neurologic: No significant issues at present. Avoid mindaltering agents. Pulmonary: Oxygen requirements minimal at this time. Currently on 2 L of oxygen. Chest x- ray with effusion and CHF-like findings. CT chest with bilateral effusions likely secondary to heart failure. Bilateral compressive atelectasis seen as well. 4 mm groundglass lung nodule noted in the right apex. Repeat CT in 1 year. Cardiovascular: Hypertensive emergency. Responding well to nitroglycerin at this time as this is going to offload his heart. Continue with diuresis. Increase the dose of carvedilol to 12.5 twice daily and added Imdur. Cardiology consultation appreciated. Prior echo reviewed with diastolic dysfunction. Heparin on hold due to hematuria from traumatic Sorensen catheter placement. Gastrointestinal: Liver function test this morning unremarkable. Lipase mildly elevated 84 on 02/17/2022. Sorensen revealed a malpositioned Sorensen catheter with the balloon inflated in the bulbar portion of the urethra. No bowel obstruction. Multiple water attenuation hypodense bilateral renal lesions noted. Nonemergent renal protocol MRI recommended. Renal: CARMELO on CKD stage IV. Continue diuretic therapy with IV Lasix. Continue to mo nitor urine output closely. [place]-tinged urine likely related to traumatic Sorensen insertion. Infectious disease: No clear source of infection at this time. Hematologic: Monitor for signs of bleeding while on heparin. Mild hematuria noted. Endocrine: Pharmacy to assist with glucose management. F/E/N: PIV's in place. Lines and tubes: Sorensen catheter in place. VTE prophylaxis: Heparin drip CODE STATUS: Full code Family at bedside: Not available at bedside at this time Disposition: He was successfully weaned off nitroglycerin, can downgrade to PCU status. I have personally spent 34 minutes of critical care time in the direct management of this patient. This is a life/limb threatening event. This includes time spent evaluating patient, direct bedside care, chart review, placing orders , interpretation of diagnostic studies, discussion with consultants, patient, and family members, as well as other required patient management activities. This time is exclusive of all separately billable procedures, and teaching time and separate from and in addition to any other critical care service time. Thank you for allowing us to participate in the care of this patient. Admission and Anticipated Discharge Date Admission Date: February 17, 2022 Subjective Patient seen and examined. No specific complaints at this time. Urinating well with a Sorensen catheter. Currently on nitroglycerin infusion with systolic blood pressures in the 140s. Denies chest pains, fevers, chills, night sweats or shortness of breath. Review of Systems Review of Systems: All systems reviewed & are unremarkable except as noted in HPI & below Physical Exam Physical Exam: Constitutional: Elderly and obese appearing male no apparent distress laying in bed. Nasal cannula in place. Eyes: Pupils are equal round and reactive to light. Conjunctivae are normal. Anicteric sclera. Ears nose, mouth and throat: Mallampati class 2. Normal posterior oropharynx. Uvula is midline. Neck: Trachea is midline. Visual inspection is normal. Respiratory: Diminished lung sounds bilaterally. No wheezes. Mild crackles. Cardiovascular: Regular rate and rhythm. 2 out of 6 systolic flow murmur. 1+ edema in the lower extremities. Gastrointestinal: Soft, nontender, nondistended. Musculoskeletal: No cyanosis. Patient is able to move all extremities. Skin: No rashes, warm dry and intact. Neurologic: No obvious focal neurological deficits seen. Psychiatric: Alert and oriented x3 with a euthymic affect. Results & Data Results & Data ([facility]) Vital Signs (Past 12 Hours) Vital Signs Temp Pulse Resp BP Pulse Ox 02/18/22 08:00 36.5 C 76 21 146/60 H 97 02/18/22 07:31 83 24 170/82 H 95 02/18/22 07:00 79 25 H 166/81 H 95 02/18/22 06:01 75 24 168/73 H 97 02/18/22 05:30 65 15 133/71 98 02/18/22 05:00 72 19 159/72 H 97 04/20/22 04:30 71 21 159/71 H 94 02/18/22 04:29 74 22 167/79 H 97 02/18/22 04:21 77 21 174/84 H 96 02/18/22 04:00 36.6 C 82 33 H 155/114 H 90 02/18/22 03:30 78 26 H 161/89 H 93 02/18/22 03:00 79 26 H 150/78 H 95 02/18/22 02:30 70 16 151/71 H 96 02/18/22 02:00 80 22 148/74 H 96 02/18/22 01:30 72 17 149/85 H 96 02/18/22 01:00 71 22 145/67 H 95 02/18/22 00:30 78 25 H 155/82 H 95 02/18/22 00:00 36.6 C 77 23 142/90 H 95 02/17/22 23:30 77 29 H 153/79 H 94 02/17/22 23:00 79 26 H 145/72 H 95 02/17/22 22:30 78 20 155/80 H 94 02/17/22 22:00 76 17 153/78 H 95 02/17/22 21:31 87 22 161/78 H 91 02/17/22 21:00 72 14 141/72 H 95 Coding Level of Care Code Critical Care 1st 30-74 mins Diagnoses Hypertensive emergency I16.1 Acute on chronic diastolic CHF (congestive heart failure) I50.33 CAD, multiple vessel I25.10 SOB (shortness of breath) R06.02 Abdominal pain R10.9 CKD (chronic kidney disease), stage IV N18.4 Bladder neck contracture N32.0 Time Spent (min) 34
[2022-02-18] MEDS ORDERED: ISOSORBIDE MONO EXTENDED REL 30 MG TABCR PO SCH (09:00)
[2022-02-18] MEDS: UMECLIDINIUM/VILANTEROL 62.5/25MCG 7 PUFFS/INHALER INH SCH (09:24)
[2022-02-18] MEDS: ASPIRIN 81 MG ECTAB PO SCH (09:25)
[2022-02-18] MEDS: FUROSEMIDE 40 MG/4 ML VIAL IV SCH (09:25)
[2022-02-18] MEDS: POTASSIUM CHLORIDE CRTAB 20 MEQ TABCR PO SCH (09:25)
[2022-02-18] MEDS: FERROUS SULFATE 325 MG TAB PO SCH ×2 (09:25→20:17)
[2022-02-18] MEDS: LOSARTAN/HCTZ 50/12.5MG TAB PO SCH (09:25)
[2022-02-18] MEDS: DOCUSATE SODIUM 100 MG CAP PO SCH ×2 (09:35→20:17)
[2022-02-18] MEDS: carvediloL 12.5 MG TAB PO SCH ×2 (09:35→20:18)
[2022-02-18 10:46] LABS: Basophils # (auto) 0.05 K/uL (0-0.2); Basophils % (auto) 0.4 %; Eosinophils # (auto) 0.13 K/uL (0-0.5); Eosinophils % (auto) 1.1 %; Hemoglobin 9.8 g/dL (14.0-18.0); Immature Granulocytes # (auto) 0.01 K/uL (0.00-0.02); Immature Granulocytes % (auto) 0.1 %; Lymphocytes # (auto) 0.96 K/uL (1.2-3.4); Lymphocytes % (auto) 7.9 %; Mean Corpuscular Hemoglobin 30.7 pg (25-34); Mean Corpuscular Hgb Conc 33.8 g/dL (32-36); Mean Corpuscular Volume 90.9 fL (80-100); Mean Platelet Volume 11.9 fL (7.4-10.4); Monocytes # (auto) 1.94 K/uL (0.11-0.59); Neutrophils # (auto) 9.01 K/uL (1.4-6.5); Neutrophils % (auto) 74.5 %; Platelet Count 235 K/uL (130-400); RDW Coefficient of Variation 12.9 % (11.5-14.5); RDW Standard Deviation 42.6 fL (36.4-46.3); Red Blood Count 3.19 M/uL (4.7-6.1)
--- NOTE | 2022-02-18 11:34 | XCELERA ---
[id number]
[2022-02-18] MEDS: ATORVASTATIN 40 MG TAB PO SCH (12:57)
[2022-02-18 13:38] LABS: BUN Creatinine Ratio 18.9 (10-20); Calcium 8.4 mg/dl (8.5-10.1); Creatinine Clr Calc Pharmacy 20.3 ml/min; Est GFR (African American) 21.3 ml/min; Est GFR (Non-African American) 18.4 ml/min; Potassium 4.2 mmol/L (3.5-5.1)
--- NOTE | 2022-02-18 15:30 | Cardiology Progress Note ---
Date of Service February 18, 2022 Assessment & Plan (1) Hypertensive emergency: (2) Elevated troponin: (3) Acute on chronic diastolic CHF (congestive heart failure): (4) CAD, multiple vessel: Plan: 1. Acute decompensated diastolic heart failure: Some dietary indiscretion. Also hypertensive emergency. It is very possible this precipitated some symptoms in the outpatient setting as well. He certainly better today. He diuresed fairly aggressively yesterday. Nitroglycerin infusion is being reduced. It would seem reasonable to continue the current dose of diuretic although his renal function appears to have declined slightly he will need to be monitored closely. 2. Hypertension: Improved. Started on oral medications. Nitroglycerin infusion being weaned. Unclear if he is still a good candidate for ARB. Hydralazine or amlodipine may be a better option in the long run. 3. Chest pain: No recurrence. Likely related to pulmonary vascular congestion and abdominal distention. 4. Coronary disease: He does not describe symptoms of exertional chest pain or angina. His revascularization was quite remote, but he is also quite sedentary. Will continue secondary prevention including daily aspirin and high-dose atorvastatin. 5. Bifascicular block: No higher degree heart block. Admission and Anticipated Discharge Date Admission Date: February 17, 2022 Subjective This afternoon the patient claims to be feeling poorly. However, this was due to an inability to sleep. He states that his breathing is certainly improved. His abdominal distention is improved. No symptoms of chest pain. No dizziness. No sense of palpitation. Review of Systems Review of Systems: Per HPI Physical Exam Physical Exam: The patient is alert and oriented. Mood and affect appeared normal. He answered all questions appropriately. HEENT: Pupils are equal and reactive to light and accommodation. Extraocular movements are intact. The sclerae are anicteric. Neuro: Cranial nerves intact Lungs: Normal respiratory effort. Some reduced breath sounds bilaterally. Occasional crackles to bases. No expiratory wheezing. No upper respiratory sounds. Cardiac: Heart demonstrates a regular rate and rhythm with frequent ectopy. Normal S1 and S2. Crescendo systolic murmur Pulses: The patient has palpable radial pulses bilaterally that are equal in i ntensity Extremities: There was no evidence of hypoperfusion. There is no cyanosis or clubbing. Mild bilateral lower extremity edema Skin: I did not appreciate any rashes on examination today. Results & Data ([facility]) Vital Signs (Past 12 Hours) Vital Signs Temp Pulse Resp BP Pulse Ox 02/18/22 11:00 62 14 132/73 95 02/18/22 10:30 72 24 140/68 95 02/18/22 10:00 71 22 131/63 97 02/18/22 09:30 78 23 155/65 H 96 02/18/22 09:00 78 20 137/61 95 02/18/22 08:30 81 25 H 130/59 L 96 02/18/22 08:00 36.5 C 76 21 146/60 H 97 02/18/22 07:31 83 24 170/82 H 95 02/18/22 07:00 79 25 H 166/81 H 95 02/18/22 06:01 75 24 168/73 H 97 02/18/22 05:30 65 15 133/71 98 02/18/22 05:00 72 19 159/72 H 97 02/18/22 04:30 71 21 159/71 H 94 02/18/22 04:29 74 22 167/79 H 97 02/18/22 04:21 77 21 174/84 H 96 02/18/22 04:00 36.6 C 82 33 H 155/114 H 90 02/18/22 03:30 78 26 H 161/89 H 93 Laboratory Results Abnormal Lab Results 02/17/22 02/18/22 02/18/22 18:08 00:17 00:28 WBC RBC Hgb Hct MCV MCH MCHC RDW Std Deviation RDW Coeff of Natalie Plt Count MPV Immature Gran % (Auto) Neut % (Auto) Lymph % (Auto) [place] % (Auto) Eos % (Auto) Baso % (Auto) Neut # (Auto) Lymph # (Auto) [place] # (Auto) Eos # (Auto) Baso # (Auto) Immature Gran # (Auto) Sodium Potassium Chloride Carbon Dioxide Anion Gap BUN Creatinine Est Cr Clr Drug Dosing Est GFR ( Amer) Est GFR (Non-Af Amer) BUN/Creatinine Ratio Glucose POC Glucose 114 H Calcium Troponin I High Sens 303.2 H* 274.1 H* 02/18/22 02/18/22 02/18/22 05:06 05:06 10:28 WBC 12.22 H 12.10 H RBC 3.20 L 3.19 L Hgb 9.7 L D 9.8 L Hct 29.1 L 29.0 L MCV 90.9 90.9 MCH 30.3 30.7 MCHC 33.3 33.8 RDW Std Deviation 43.0 42.6 RDW Coeff of Natalie 12.9 12.9 Plt Count 199 235 MPV 13.1 H 11.9 H Immature Gran % (Auto) 0.2 0.1 Neut % (Auto) 76.0 74.5 Lymph % (Auto) 9.2 7.9 [place] % (Auto) 13.7 16.0 Eos % (Auto) 0.7 1.1 Baso % (Auto) 0.2 0.4 Neut # (Auto) 9.29 H 9.01 H Lymph # (Auto) 1.13 L 0.96 L [place] # (Auto) 1.67 H 1.94 H Eos # (Auto) 0.08 0.13 Baso # (Auto) 0.03 0.05 Immature Gran # (Auto) 0.02 0.01 Sodium 140 Potassium 4.2 Chloride 104 Carbon Dioxide 28 Anion Gap 8 BUN 54 H Creatinine 2.74 H D Est Cr Clr Drug Dosing 22.3 Est GFR ( Amer) 23.9 Est GFR (Non-Af Amer) 20.6 BUN/Creatinine Ratio 19.7 Glucose 100 H POC Glucose Calcium 8.8 Troponin I High Sens 02/18/22 12:50 WBC RBC Hgb Hct MCV MCH MCHC RDW Std Deviation RDW Coeff of Natalie Plt Count MPV Immature Gran % (Auto) Neut % (Auto) Lymph % (Auto) [place] % (Auto) Eos % (Auto) Baso % (Auto) Neut # (Auto) Lymph # (Auto) [place] # (Auto) Eos # (Auto) Baso # (Auto) Immature Gran # (Auto) Sodium 138 Potassium 4.2 Chloride 102 Carbon Dioxide 29 Anion Gap 7 BUN 57 H Creatinine 3.01 H Est Cr Clr Drug Dosing 20.3 Est GFR ( Amer) 21.3 Est GFR (Non-Af Amer) 18.4 BUN/Creatinine Ratio 18.9 Glucose 166 H POC Glucose Calcium 8.4 L Troponin I High Sens Diagnostic Findings Echocardiogram performed today revealed preserved LV systolic function with mild LVH. Mild aortic regurgitation and mild valvular aortic stenosis PG Care Time/CCT Total # of Minutes Spent Total Time Spent with Patient: Total time spent is greater than 50% in coordination of care (as documented) at patient's floor/unit and/or counseling patient: Coding Level of Care Code 89753 Subseq Hosp Care Lvl 2 Diagnoses Hypertensive emergency I16.1 Elevated troponin R77.8 Acute on chronic diastolic CHF (congestive heart failure) I50.33 CAD, multiple vessel I25.10
--- NOTE | 2022-02-18 16:15 | Nephrology Consultation ---
Date of Consultation February 18, 2022 Assessment & Plan (1) CKD (chronic kidney disease), stage IV: * CARMELO/CKD likely due to hypertensive emergency, CHF in the setting of ARB therapy * CKD stage IV/A3 with baseline Cr 2.0 - 2.3 and EGFR 25 cc/min dating back to 2018. UPCR has been ~ 6.0. Renal impairment is on the basis of microvascular disease and hypertensive nephrosclerosis. Outpatient evaluation has revealed an acellular urine sediment. 02/[address] was negative for hydronephrosi s but did reveal multiple bilateral renal cysts and and indeterminate 1.8 cm R renal lesion * Proteinuria is exacerbated by HTN but 05/21 UIEP was positive for a monoclonal band. Will repeat SPEP and UIEP. Will request Oncology evaluation (2) Hypertensive emergency: * Stop ARB/HCTZ * Will substitute Hydralazine and Bumetanide * Monitor BP, UO, kidney function (3) Prostate cancer: * h/o radical prostatectomy * Difficult Sorensen placement. Urology has placed new urinary catheter History of Present Illness Reason for Consultation: CARMELO/CKD Attending Physician: Reinier Briseno MD History of Present Illness Mr. Benito is an 81 year old white male who is seen at the request of Dr. Holman for evaluation of CARMELO/CKD. Medical records in the EMR were reviewed today and are summarized as follows: Mr. Benito has CKD stage IV/A3 with baseline Cr 2.0 - 2.3 and EGFR 25 cc/min dating back to 2018. UPCR has been ~ 6.0. His primary Repacker is Dr. Brown. Mr. 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 As an outpatient he has been reluctant to adjust his antihypertensive regimen or start therapy for secondary hyperparathyroidism. Mr. Benito's medical history is significant for ASCVD s/p CABG 2014, HTN, obesity, TEENA, prostate CA s/p prostatectomy. 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 Mr. Benito presented to [facility] EMD 02/17/22 for hypertensive urgency and CHF. He required BiPAP therapy, topical nitrates and IV Furosemide. Since admission he has diuresed 2.3 L and is now breathing comfortably on O2 at 2L/min NC. Cr has risen from 2.3 to 3.0. Nephrology consultation has been requested due to CARMELO/CKD and to optimize antihypertensive regimen Allergies Allergy/AdvReac Type Severity Reaction Status Date / Time amlodipine Allergy Unknown Unverified 02/17/22 07:51 aspirin Allergy Unknown Unverified 02/17/22 12:52 atorvastatin Allergy Unknown Unverified 02/17/22 12:52 Home Medications Medication Instructions Recorded Confirmed Type nitroglycerin 0.4 mg sublingual 0.4 mg SL .COMPLEX #25 tab 04/14/19 02/17/22 Rx tablet ferrous sulfate 325 mg (65 mg 325 mg PO BID tab 05/31/19 02/17/22 History iron) tablet albuterol sulfate 90 mcg/actuation 1 inh INHALATION Q4H PRN 12/10/21 02/17/22 History breath activated powder inhaler,sensor fesoterodine 4 mg tablet,extended 4 mg PO QAM 12/10/21 02/17/22 History release 24 hr (Toviaz) umeclidinium 62.5 mcg-vilanterol 1 inh INHALATION QAM 12/10/21 02/17/22 History 25 mcg/actuation powdr for inhalation (Anoro Ellipta) acetaminophen 650 mg 1,300 mg PO Q8H PRN 02/17/22 02/17/22 History tablet,extended release (Arthritis Pain Relief (acetaminophen) ER) aspirin 81 mg tablet,delayed 81 mg PO QAM 02/17/22 02/17/22 History release (Enteric Coated Aspirin) atorvastatin 80 mg tablet 80 mg PO QAM 02/17/22 02/17/22 History carvedilol 6.25 mg tablet 6.25 mg PO BID 02/17/22 02/17/22 History cholecalciferol (vitamin D3) 25 2,000 units PO QAM 02/17/22 02/17/22 History mcg (1,000 unit) capsule lorazepam 0.5 mg tablet 0.5 mg SUBLINGUAL BID PRN 02/17/22 02/17/22 History losartan 100 1 tab PO QAM 02/17/22 02/17/22 History mg-hydrochlorothiazide 25 mg tablet omega 3-fsg-muc-fish oil 1,000 mg 1 cap PO QAM 02/17/22 02/17/22 History (120 mg-180 mg) capsule (Fish Oil) polyethylene glycol 3350 17 17 g PO QAM 02/17/22 02/17/22 History gram/dose oral powder (Miralax) Patient History Medical History Abdominal pain CAD, multiple vessel CKD (chronic kidney disease), 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 Diastolic CHF History of prostate cancer Hyperlipidemia Hypertension Hypertensive emergency Obstructive sleep apnea Stage 3 chronic kidney disease Surgical History History of cataract surgery History of colonoscopy History of prostate surgery Hx of CABG S/P hip replacement Family History Denies family history of Ovarian cancer Prostate cancer Kidney disease Myocardial infarction Breast cancer Colorectal cancer Social History Smoking Status: Former smoker Tobacco Type: Cigars Age Started Using Tobacco: 24; Age Quit Using Tobacco: 49; Second Hand Exposure: No; Hx Alcohol Use: No Hx Substance Use: No Preferred Language: [place] Communication Ability: Effective Visual Impairment: Limited Hearing Ability: Use of Hearing Aid Public Address Announcer Required: No Beliefs That Will Affect Care: None marital status: / Current Living Situation: Personal Care Facility current occupational status: 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 Feels Safe at Home: Yes Safety Concerns: Feels Safe At This Time Childhood Exposure to Second-Hand Smoke: Yes caffeine: No during the past year weight has: remained stable Dental Care, Regularly: No Physical Activity Frequency: Does not Exercise Seatbelt Use: always Sunscreen Use: No Assistive Devices: Cane, Denture - Upper, Denture - Lower, Hearing Aid - Bilateral and Oxygen - Continuous Review of Systems Constitutional: no fever Eyes: no problem reported Ear, Nose, Mouth, Throat: no problem reported Respiratory: no cough and no dyspnea Cardiovascular: no chest pain Gastrointestinal: + nausea; no abdominal pain, no vomiting and no diarrhea/loose stools Integumentary: no rash Neurologic: no confusion Physical Exam Constitutional: + overweight; no acute distress Eyes: PERRL, conjunctivae normal, anicteric sclerae ENMT: external ear and nose normal, oropharynx normal Neck: trachea midline, no thyromegaly Respiratory: normal respiratory effort, lungs clear to auscultation Cardiovascular: RRR, no murmur, no edema Gastrointestinal (Abdomen): normal bowel sounds, soft, nontender, no hepatosplenomegaly Neurologic: awake; not confused Results & Data ([facility]) Vital Signs (Past 12 Hours) Vital Signs Temp Pulse Resp BP Pulse Ox 02/18/22 16:00 36.9 C 68 16 161/75 H 98 02/18/22 15:30 64 15 139/69 98 02/18/22 15:00 71 20 141/71 H 97 02/18/22 14:30 64 21 128/61 98 02/18/22 14:00 55 L 13 109/57 L 98 02/18/22 13:30 75 23 98 02/18/22 13:00 72 21 127/55 L 95 02/18/22 12:30 69 21 110/51 L 96 02/18/22 12:00 36.8 C 62 15 113/50 L 97 02/18/22 11:30 76 22 151/75 H 90 02/18/22 11:00 62 14 132/73 95 02/18/22 10:30 72 24 140/68 95 02/18/22 10:00 71 22 131/63 97 02/18/22 09:30 78 23 155/65 H 96 02/18/22 09:00 78 20 137/61 95 02/18/22 08:30 81 25 H 130/59 L 96 02/18/22 08:00 36.5 C 76 21 146/60 H 97 02/18/22 07:31 83 24 170/82 H 95 02/18/22 07:00 79 25 H 166/81 H 95 02/18/22 06:01 75 24 168/73 H 97 02/18/22 05:30 65 15 133/71 98 02/18/22 05:00 72 19 159/72 H 97 02/18/22 04:30 71 21 159/71 H 94 02/18/22 04:29 74 22 167/79 H 97 02/18/22 04:21 77 21 174/84 H 96 Laboratory Results Laboratory Tests 01/27/21 08/22/21 12/11/21 09:52 08:56 06:34 WBC Hgb Hct Plt Count Sodium Potassium Chloride Carbon Dioxide BUN Creatinine 2.29 H 2.33 H 2.38 H Calcium Urine Color Urine Appearance Urine pH Ur Specific [place] Urine Protein Urine Blood Urine WBC (Auto) Urine RBC (Auto) 02/17/22 02/18/22 02/18/22 07:00 05:06 10:28 WBC 12.10 H Hgb 9.8 L Hct 29.0 L Plt Count 235 Sodium Potassium Chloride Carbon Dioxide BUN Creatinine 2.74 H D Calcium Urine Color Yellow Urine Appearance Clear Urine pH 5.0 Ur Specific [place] 1.016 Urine Protein 4+ H Urine Blood 1+ H Urine WBC (Auto) 1-5 Urine RBC (Auto) 5-10 H 02/18/22 12:50 WBC Hgb Hct Plt Count Sodium 138 Potassium 4.2 Chloride 102 Carbon Dioxide 29 BUN 57 H Creatinine 3.01 H Calcium 8.4 L Urine Color Urine Appearance Urine pH Ur Specific [place] Urine Protein Urine Blood Urine WBC (Auto) Urine RBC (Auto) PG Care Time/CCT Total # of Minutes Spent Total Time Spent with Patient: Total time spent is greater than 50% in coordination of care (as documented) at patient's floor/unit and/or counseling patient: Coding Level of Care Code 04402 Inpt Consult Level 5 Diagnoses CKD (chronic kidney disease), stage IV N18.4 Hypertensive emergency I16.1 Prostate cancer C61
[2022-02-18] MEDS ORDERED: hydrALAZINE TAB 50 MG TAB PO SCH (21:00)
[2022-02-18] MEDS ORDERED: MELATONIN 3 MG TAB PO ONE (21:00)
[2022-02-19 05:50] LABS: Hematocrit (blood only) 29.6 % (42-52); Hemoglobin 9.9 g/dL (14.0-18.0); Mean Corpuscular Hemoglobin 30.7 pg (25-34); Mean Corpuscular Hgb Conc 33.4 g/dL (32-36); Mean Corpuscular Volume 91.6 fL (80-100); Mean Platelet Volume 12.6 fL (7.4-10.4); Platelet Count 221 K/uL (130-400); RDW Coefficient of Variation 13.1 % (11.5-14.5); RDW Standard Deviation 44.2 fL (36.4-46.3); Red Blood Count 3.23 M/uL (4.7-6.1); White Blood Count 11.18 K/uL (4.8-10.8)
[2022-02-19 06:18] LABS: Calcium 8.7 mg/dl (8.5-10.1); Creatinine Clr Calc Pharmacy 20.4 ml/min; Est GFR (African American) 21.4 ml/min; Est GFR (Non-African American) 18.5 ml/min; Magnesium 1.8 mg/dl (1.7-2.4)
[2022-02-19] MEDS: NITROGLYCERIN/D5W 100MCG/ML 250 ML IV SCH (07:32)
--- NOTE | 2022-02-19 08:15 | Hospitalist Progress Note ---
Date of Service February 19, 2022 Assessment & Plan (1) Stage 3 chronic kidney disease: Plan: Acute kidney injury and history of chronic kidney disease stage III with diuresis and hypertensive urgency with nephrosclerosis suspected however urine electrophoresis with possible monoclonal band repeat serum electrophoresis urine electrophoresis. Nephrology is following. Changing diuretics from Lasix to Bumex. Patient had poor urine output in the afternoon of 02/19 and was given a fluid bolus. (2) Acute on chronic diastolic CHF (congestive heart failure): Plan: HFPEF last EF 55-60% 12/10/2021, hypertension, multivessel CAD with history of CABG in 2014, and CKD 3, COPD ABG shows compensated hypercapnia. Acute on chronic diastolic CHF, with elevated troponin no significant trend or recommendations for further risk stratification from cardiology Chest pain improved with Nitropaste, Titrating nitro drip to off as Imdur has started, BiPAP, Lasix Heparin started with elevated troponin will complete 48 hours Troponin trended without significant concern for ACS Echo normal LV size with LVH EF 55-60 no wall motion abnormalities noted BNP 2317 dietary indiscretion with ham for holiday precipitated events COVID-negative, flu negative, RSV negative Hyperlipidemia Atorvastatin 80 mg as noted History of CABG x4, no stents Aspirin continued atorvastatin continue Heparinized as above held with urethral bleeding will be eventually discontinued and subcutaneous heparin begun Continue carvedilol 6.25 mg p.o. twice daily COPD Trace expiratory wheezing on admission On BiPAP Suspicion for acute exacerbation, suspect symptoms due to CHF as above Continue Anor-[address] chest will need follow up Patient had Sorensen balloon blown up in his urethra this was seen by urology had dealt with he has indwelling Sorensen catheter at this time DVT SCDs for now olson to subcu heparin on 02/19/2022 Diet: NPO pending improvement in resp status CODE STATUS: Full Dispo: ICU while titrating nitro gtt (3) COPD (chronic obstructive pulmonary disease) with emphysema: (4) Elevated troponin: (5) Obstructive sleep apnea: (6) Hyperlipidemia: Admission and Anticipated Discharge Date Admission Date: February 17, 2022 Subjective Patient is doing better but he does have some progressive renal failure there was mention in nephrology notes of a monoclonal band on urine electrophoresis with repeat studies ordered and oncological consult requested, patient overall is clinically improving with some variable urine output in the afternoon of 02/19/2022 Review of Systems Review of Systems: Mild distress and fatigue no headache, no visual changes no speech or swallowing issues no chest pain, pressure or palpitations Persistent shortness of breath, cough or wheezes no abdominal pain, nausea or vomiting, diarrhea or constipation no dysuria, hematuria or frequency no focal joint pain or swelling no back pain, CVA tenderness or radicular pain no bruising, bleeding or rashes no focal signs of weakness or numbness or altered sensation no complaints of anxiety or depression.. Physical Exam Physical Exam: The patient appeared well nourished and normally developed. Vital signs as documented. Head exam is normocephalic atraumatic Neck is without JVD, thyromegaly, or carotid bruits. Lungs are diminished at the bases Cardiac exam, regular rate controlled systolic murmur Abdominal exam reveals normal bowel sounds, soft non tender, no masses Extremities are nonedematous and both pedal pulses are present Neurologic exam is alert and oriented, no focal loss of strength or sensation Skin is without bruises or rashes dried blood near his urethral meatus where the catheter is inserted Psychologically is without concerns for anxiety or depression.. Results & Data Results & Data ([facility]) Vital Signs (Past 12 Hours) Vital Signs Temp Pulse Pulse Resp BP BP Pulse Ox 02/19/22 08:00 98.2 F 76 80 30 H 146/62 H 199/96 H 93 02/19/22 07:30 80 27 H 190/88 H 96 02/19/22 07:07 85 21 199/96 H 96 02/19/22 07:00 83 26 H 189/97 H 95 02/19/22 06:30 81 22 183/87 H 97 02/19/22 06:00 76 22 165/83 H 96 02/19/22 05:30 79 23 171/77 H 96 02/19/22 05:25 82 26 H 178/83 H 96 02/19/22 05:22 84 26 H 178/84 H 96 02/19/22 05:00 85 24 175/87 H 97 02/19/22 04:30 89 30 H 95 02/19/22 04:00 98.8 F 66 16 119/75 97 02/19/22 03:31 66 19 105/47 L 97 02/19/22 03:30 66 30 H 96 02/19/22 03:00 69 14 145/67 H 96 02/19/22 02:30 69 17 97 02/19/22 02:09 72 21 98 02/19/22 02:00 73 24 167/78 H 98 02/19/22 01:30 63 13 153/76 H 94 02/19/22 01:00 65 22 124/83 98 02/19/22 00:30 68 25 H 161/84 H 97 02/19/22 00:10 72 19 149/77 H 96 02/19/22 00:01 77 28 H 97 02/19/22 00:00 98.8 F 76 22 97 02/18/22 23:30 58 L 16 122/59 L 98 02/18/22 23:00 57 L 14 135/64 97 02/18/22 22:30 57 L 16 131/63 98 02/18/22 22:00 60 16 129/50 L 99 02/18/22 21:30 59 L 15 141/58 H 98 02/18/22 21:00 58 L 14 130/63 98 02/18/22 20:30 72 26 H 143/91 H 99 PG Care Time/CCT Total # of Minutes Spent Total Time Spent with Patient: Total time spent is greater than 50% in coordination of care (as documented) at patient's floor/unit and/or counseling patient: Coding Level of Care Code 56943 Subseq Hosp Care Lvl 3 Diagnoses Acute on chronic diastolic CHF (congestive heart failure) I50.33 Stage 3 chronic kidney disease N18.3 COPD (chronic obstructive pulmonary disease) with emphysema J43.9 Elevated troponin R77.8 Obstructive sleep apnea G47.33 Hyperlipidemia E78.5
--- NOTE | 2022-02-19 08:27 | Nephrology Progress Note ---
Date of Service February 19, 2022 Assessment & Plan (1) CKD (chronic kidney disease), stage IV: Plan: * CARMELO/CKD likely due to hypertensive emergency, CHF in the setting of ARB therapy * CKD stage IV/A3 with baseline Cr 2.0 - 2.3 and EGFR 25 cc/min dating back to 2018. UPCR has been ~ 6.0. Renal impairment is on the basis of microvascular disease and hypertensive nephrosclerosis. Outpatient evaluation has revealed an acellular urine sediment. 02/[address] was negative for hydronephrosis but did reveal multiple bilateral renal cysts and and indeterminate 1.8 cm R renal lesion * Proteinuria is exacerbated by HTN but 05/21 UIEP was positive for a monoclonal band. Will repeat SPEP and UIEP. Will request Oncology evaluation * Indeterminate 1.8 cm R renal lesion on 02/20 CT scan. Will need MRI as outpatient once medically stable (2) Hypertensive emergency: Plan: * ARB/HCTZ has been stopped * Start Hydralazine 50 mg po QID and Bumetanide 1 mg po BID * Increase Imdur to 90 mg po daily and wean off NTG gtt * Monitor BP, UO, kidney function (3) Prostate cancer: Plan: * h/o radical prostatectomy * Difficult Sorensen placement. Urology has placed new urinary catheter Admission and Anticipated Discharge Date Admission Date: February 17, 2022 Subjective Mr. Benito was evaluated in the ICU this morning. BP has been labile overnight. He remains on NTG gtt. He was breathing comfortably on O2 at 2L/min NC Review of Systems Constitutional: no fever Eyes: no problem reported Ear, Nose, Mouth, Throat: no problem reported Respiratory: no cough and no dyspnea Cardiovascular: no chest pain Gastrointestinal: no abdominal pain, no vomiting and no diarrhea/loose stools Integumentary: no rash Neurologic: no confusion Physical Exam Constitutional: + overweight; no acute distress Eyes: PERRL, conjunctivae normal, anicteric sclerae ENMT: external ear and nose normal, oropharynx normal Neck: trachea midline, no thyromegaly Respiratory: normal respiratory effort, lungs clear to auscultation Cardiovascular: RRR, no murmur, no edema Gastrointestinal (Abdomen): normal bowel sounds, soft, nontender, no hepatosplenomegaly Neurologic: awake; not confused Results & Data ([facility]) Vital Signs (Past 12 Hours) Vital Signs Temp Pulse Pulse Resp BP BP Pulse Ox 02/19/22 08:23 82 02/19/22 08:00 36.8 C 76 80 30 H 146/62 H 199/96 H 93 02/19/22 07:30 80 27 H 190/88 H 96 02/19/22 07:07 85 21 199/96 H 96 02/19/22 07:00 83 26 H 189/97 H 95 02/19/22 06:30 81 22 183/87 H 97 02/19/22 06:00 76 22 165/83 H 96 02/19/22 05:30 79 23 171/77 H 96 02/19/22 05:25 82 26 H 178/83 H 96 02/19/22 05:22 84 26 H 178/84 H 96 02/19/22 05:00 85 24 175/87 H 97 02/19/22 04:30 89 30 H 95 02/19/22 04:00 37.1 C 66 16 119/75 97 02/19/22 03:31 66 19 105/47 L 97 02/19/22 03:30 66 30 H 96 02/19/22 03:00 69 14 145/67 H 96 02/19/22 02:30 69 17 97 02/19/22 02:09 72 21 98 02/19/22 02:00 73 24 167/78 H 98 02/19/22 01:30 63 13 153/76 H 94 02/19/22 01:00 65 22 124/83 98 02/19/22 00:30 68 25 H 161/84 H 97 02/19/22 00:10 72 19 149/77 H 96 02/19/22 00:01 77 28 H 97 02/19/22 00:00 37.1 C 76 22 97 02/18/22 23:30 58 L 16 122/59 L 98 02/18/22 23:00 57 L 14 135/64 97 02/18/22 22:30 57 L 16 131/63 98 02/18/22 22:00 60 16 129/50 L 99 02/18/22 21:30 59 L 15 141/58 H 98 02/18/22 21:00 58 L 14 130/63 98 02/18/22 20:30 72 26 H 143/91 H 99 Laboratory Results Laboratory Tests 05/09/21 02/17/22 02/19/22 09:33 07:00 04:48 WBC Hgb Hct Plt Count Sodium Potassium Chloride Carbon Dioxide BUN Creatinine Glucose Urine Color Yellow Urine pH 5.0 Ur Specific Thoreau 1.016 Urine Protein 4+ H Urine Glucose (UA) Trace H Urine Blood 1+ H Urine Nitrite Negative Ur Leukocyte Esterase Negative Urine WBC (Auto) 1-5 Urine RBC (Auto) 5-10 H Serum Immunofixation Pending Free [place]/Lambda Ratio 2.61 H 02/19/22 02/19/22 04:48 04:48 WBC 11.18 H Hgb 9.9 L Hct 29.6 L Plt Count 221 Sodium 137 Potassium 4.0 Chloride 101 Carbon Dioxide 28 BUN 57 H Creatinine 3.00 H Glucose 109 H Urine Color Urine pH Ur Specific Thoreau Urine Protein Urine Glucose (UA) Urine Blood Urine Nitrite Ur Leukocyte Esterase Urine WBC (Auto) Urine RBC (Auto) Serum Immunofixation Free [place]/Lambda Ratio PG Care Time/CCT Total # of Minutes Spent Total Time Spent with Patient: Total time spent is greater than 50% in coordination of care (as documented) at patient's floor/unit and/or counseling patient: Coding Level of Care Code 10635 Subseq Hosp Care Lvl 3 Diagnoses CKD (chronic kidney disease), stage IV N18.4 Hypertensive emergency I16.1 Prostate cancer C61
--- NOTE | 2022-02-19 08:52 | Critical Care Progress Note ---
Date of Service February 19, 2022 Assessment & Plan (1) Hypertensive emergency: (2) Acute on chronic diastolic CHF (congestive heart failure): (3) CAD, multiple vessel: (4) SOB (shortness of breath): (5) Abdominal pain: (6) CKD (chronic kidney disease), stage IV: (7) Bladder neck contracture: Plan: 81-year-old male with a past medical history of coronary artery disease status post CABG, TEENA, hypertension, morbid obesity, prostate cancer and CKD stage IV who presented to the hospital due to increasing shortness of breath. He has now moved to the ER due to hypertensive emergency associated with chest pain and shortness of breath. Neurologic: No significant issues at present. Avoid mindaltering agents. Pulmonary: Oxygen requirements minimal at this time. Currently on 2 L of oxygen. Chest x- ray with effusion and CHF-like findings. CT chest with bilateral effusions likely secondary to heart failure. Bilateral compressive atelectasis seen as well. 4 mm groundglass lung nodule noted in the right apex. Repeat CT in 1 year. Cardiovascular: Hypertensive emergency. Will uptitrate Imdur to 90 mg daily. Continue with hydralazine, carvedilol 12.5 twice daily Gastrointestinal: Liver function test this morning unremarkable. Lipase mildly elevated 84 on 02/17/2022. Sorensen revealed a malpositioned Sorensen catheter with the balloon inflated in the bulbar portion of the urethra. No bowel obstruction. Multiple water attenuation hypodense bilateral renal lesions noted. Nonemergent renal protocol MRI recommended. Renal: CARMELO on CKD stage IV. Continue diuretic therapy with IV Lasix. Creatinine stable. Appreciate nephrology input. Infectious disease: No clear source of infection at this time. Hematologic: Hemoglobin stable. Drop in hemoglobin was likely hemodilution all related to hematuria while on heparin. Endocrine: Pharmacy to assist with glucose management. F/E/N: PIV's in place. Lines and tubes: Sorensen catheter in place. VTE prophylaxis: Heparin 5000 units BID CODE STATUS: Full code Family at bedside: Not available at bedside at this time Disposition: When he is successfully weaned off nitroglycerin, can downgrade to PCU status. I have personally spent 38 minutes of critical care time in the direct management of this patient. This is a life/limb threatening event. This includes time spent evaluating patient, direct bedside care, chart review, placing orders, interpretation of diagnostic studies, discussion with consultants, patient, and family members, as well as other required patient management activities. This time is exclusive of all separately billable procedures, and teaching time and separate from and in addition to any other critical care service time. Thank you for allowing us to participate in the care of this patient. Admission and Anticipated Discharge Date Admission Date: February 17, 2022 Subjective Remains on nitroglycerin. No significant events overnight. No pain. Review of Systems Review of Systems: All systems reviewed & are unremarkable except as noted in HPI & below Physical Exam Physical Exam: Constitutional: Elderly and obese appearing male no apparent distress laying in bed. Nasal cannula in place. Eyes: Pupils are equal round and reactive to light. Conjunctivae are normal. Anicteric sclera. Ears nose, mouth and throat: Mallampati class 2. Normal posterior oropharynx. Uvula is midline. Neck: Trachea is midline. Visual inspection is normal. Respiratory: Diminished lung sounds bilaterally. No wheezes. Mild crackles. Cardiovascular: Regular rate and rhythm. 2 out of 6 systolic flow murmur. 1+ edema in the lower extremities. Gastrointestinal: Soft, nontender, nondistended. Musculoskeletal: No cyanosis. Patient is able to move all extremities. Skin: No rashes, warm dry and intact. Neurologic: No obvious focal neurological deficits seen. Psychiatric: Alert and oriented x3 with a euthymic affect. Results & Data Results & Data ([facility]) Vital Signs (Past 12 Hours) Vital Signs Temp Pulse Pulse Resp BP BP Pulse Ox 02/19/22 08:23 82 02/19/22 08:00 36.8 C 76 80 30 H 146/62 H 199/96 H 93 02/19/22 07:30 80 27 H 190/88 H 96 02/19/22 07:07 85 21 199/96 H 96 02/19/22 07:00 83 26 H 189/97 H 95 02/19/22 06:30 81 22 183/87 H 97 02/19/22 06:00 76 22 165/83 H 96 02/19/22 05:30 79 23 171/77 H 96 02/19/22 05:25 82 26 H 178/83 H 96 02/19/22 05:22 84 26 H 178/84 H 96 02/19/22 05:00 85 24 175/87 H 97 02/19/22 04:30 89 30 H 95 02/19/22 04:00 37.1 C 66 16 119/75 97 02/19/22 03:31 66 19 105/47 L 97 02/19/22 03:30 66 30 H 96 02/19/22 03:00 69 14 145/67 H 96 02/19/22 02:30 69 17 97 02/19/22 02:09 72 21 98 02/19/22 02:00 73 24 167/78 H 98 02/19/22 01:30 63 13 153/76 H 94 02/19/22 01:00 65 22 124/83 98 02/19/22 00:30 68 25 H 161/84 H 97 02/19/22 00:10 72 19 149/77 H 96 02/19/22 00:01 77 28 H 97 02/19/22 00:00 37.1 C 76 22 97 02/18/22 23:30 58 L 16 122/59 L 98 02/18/22 23:00 57 L 14 135/64 97 02/18/22 22:30 57 L 16 131/63 98 02/18/22 22:00 60 16 129/50 L 99 02/18/22 21:30 59 L 15 141/58 H 98 02/18/22 21:00 58 L 14 130/63 98 Coding Level of Care Code Critical Care 1st 30-74 mins Diagnoses Hypertensive emergency I16.1 Acute on chronic diastolic CHF (congestive heart failure) I50.33 CAD, multiple vessel I25.10 SOB (shortness of breath) R06.02 Abdominal pain R10.9 CKD (chronic kidney disease), stage IV N18.4 Bladder neck contracture N32.0
[2022-02-19] MEDS ORDERED: BUMETANIDE 1 MG TAB PO SCH (09:00)
[2022-02-19] MEDS ORDERED: ISOSORBIDE MONO EXTENDED REL 60 MG TABCR PO SCH (09:00)
[2022-02-19] MEDS ORDERED: hydrALAZINE TAB 50 MG TAB PO SCH (09:00)
[2022-02-19] MEDS: carvediloL 12.5 MG TAB PO SCH ×2 (09:21→20:26)
[2022-02-19] MEDS: FERROUS SULFATE 325 MG TAB PO SCH ×2 (09:23→20:26)
[2022-02-19] MEDS: ASPIRIN 81 MG ECTAB PO SCH (09:25)
[2022-02-19] MEDS: BUMETANIDE 1 MG TAB PO SCH ×2 (09:25→20:26)
[2022-02-19] MEDS: DOCUSATE SODIUM 100 MG CAP PO SCH ×2 (09:26→20:26)
[2022-02-19] MEDS: POTASSIUM CHLORIDE CRTAB 20 MEQ TABCR PO SCH (09:26)
[2022-02-19] MEDS: UMECLIDINIUM/VILANTEROL 62.5/25MCG 7 PUFFS/INHALER INH SCH (09:26)
[2022-02-19] MEDS: HEPARIN SOD 5,000 UNIT/0.5 ML VIAL SQ SCH ×2 (09:40→20:26)
[2022-02-19] MEDS: ISOSORBIDE MONO EXTENDED REL 30 MG TABCR PO SCH (09:41)
[2022-02-19] MEDS: ATORVASTATIN 40 MG TAB PO SCH (10:17)
[2022-02-19] MEDS: hydrALAZINE HCL 20 MG/ML VIAL IV PRN ×2 (10:51→19:19)
--- NOTE | 2022-02-19 11:54 | Consultation Report ---
DATE OF SERVICE: 02/19/2022. REASON FOR CONSULTATION: Monoclonal gammopathy. HISTORY OF PRESENT ILLNESS: The patient is an 81-year-old gentleman with medical history of CKD stage IV, hyperlipidemia, COPD, coronary artery disease status post stent placement, who currently resides at [facility] in [place]. Patient presented with worsening shortness of breath and intermittent chest pain for which he was admitted on 02/17/2022. On admission, patient was noted to have significant worsening in baseline CKD with creatinine bumping up from 2.3-3.0. Nephrology, (Dr. Betancur) requested Oncology evaluation for monoclonal gammopathy as workup obtained in 05/2021 was suggestive of monoclonal gammopathy. The patient is currently being managed for acute on chronic diastolic heart failure and hypertensive emergency. During my evaluation of patient today, he denies any chest pain, shortness of breath, abdominal pain, nausea, vomiting, bone pain or any other issues. PAST MEDICAL HISTORY: 1. Diastolic heart failure. 2. CKD stage IV. 3. Hyperlipidemia. 4. History of coronary artery disease status post CABG. 5. COPD. 6. Obstructive sleep apnea. PAST SURGICAL HISTORY: 1. CABG. 2. Hip replacement. 3. Cataract surgery. MEDICATIONS PRIOR TO ADMISSION: Ferrous sulfate 325 mg p.o. b.i.d., fesoterodine 4 mg p.o. q.a.m., Anoro Ellipta inhalation, Tylenol as needed, aspirin 81 mg p.o. q.a.m., atorvastatin 80 mg p.o. q.a.m., carvedilol 6.25 mg p.o. b.i.d., losartan/HCTZ combination 1 tablet p.o. q.a.m. ALLERGIES: AMLODIPINE, ATORVASTATIN AND ASPIRIN. SOCIAL HISTORY: He is a former smoker, quit smoking about 30 years ago. He denies alcohol or illicit drug use. FAMILY HISTORY: Noncontributory. REVIEW OF SYSTEMS: CONSTITUTIONAL: Negative for weight loss, night sweats or fever. CARDIOVASCULAR: Negative for chest pain, palpitations, dizziness, or diaphoresis. RESPIRATORY: Negative for shortness of breath, hemoptysis or cough. GASTROINTESTINAL: Negative for diarrhea, hematemesis, melena, nausea, vomiting or dyspepsia. GENITOURINARY: Negative for urinary frequency, hematuria or dysuria. NEUROLOGIC: Negative for weakness, headaches or dizziness. PHYSICAL EXAMINATION: VITAL SIGNS: Blood pressure 189/97, heart rate is 83, respiratory rate of 26, temperature 37.1, oxygen saturation 95 on 1 liter nasal cannula. RESPIRATORY: Lung sounds were decreased bilaterally. CARDIOVASCULAR: Heart was regular rate and rhythm without significant murmur, gallops, or rubs. GASTROINTESTINAL: No palpable hepatosplenomegaly. Bowel sounds were normal. EXTREMITIES: Positive for peripheral edema. LABORATORY DATA: Review of labs from 05/2021 revealed SPEP. Labs obtained on 05/09/2021 SPEP: Interpretation pattern consistent with acute phase reaction. Evaluation reveals a faint restricted band (M spike). No measurable M spike was noted on SPEP. Serum BEAU also obtained on 05/09/2021 revealed faint indistinct bands are highlighted by one or more immunofixation reagents. In most cases this pattern represents reactive inflammatory conditions with immune complexes or oligoclonal immunoglobulins. However, a clonal B-cell or plasma cell disorder cannot be completely excluded. A random UPEP with BEAU revealed a free monoclonal kappa band present with IgA kappa monoclonal band present. Serum free light chains revealed free kappa light chain of 99.9, free lambda light chain of 38.3 and free kappa/lambda light chain ratio of 2.61. Most recent labs from 02/19/2022 significant for white count of 11.8, hemoglobin of 9.9 with hematocrit of 29.6. Chemistry significant for BUN of 57 and creatinine of 3.0. IMAGING STUDIES: CT chest on 02/17/2022 revealed: 1. Stable 4 mm ground-glass nodule within the right lung apex. 2. No new pulmonary nodules. 3. Interval development of moderate bilateral pleural effusions. 4. Stable cardiomegaly. 5. Consolidation within the majority of the bilateral lower lobes, favoring compressive atelectasis and pleural effusions. Superimposed pneumonia could also have similar appearance in the appropriate clinical setting. On 02/17/2022 CT abdomen and pelvis: 1. Malpositioned Sorensen catheter. Balloon inflated within the bulbar portion of the urethra and should be repositioned. Moderately distended bladder. No hydronephrosis. 2. Bilateral pleural effusions. 3. No bowel obstruction. 4. Multiple water attenuation and hyperdense bilateral renal lesions. IMPRESSION: 1. 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 2. Chronic kidney disease stage IV. 3. Acute on chronic diastolic heart failure. 4. Hypertensive emergency. Elderly gentleman with multiple comorbidities who was admitted for acute on chronic diastolic heart failure, hypertensive emergency and worsening in baseline renal function. Nephrology requested Hematology evaluation given longstanding history of IgA kappa monoclonal gammopathy. Per review of records, patient has not had any Hematology workup to evaluate for MGUS or progression to multiple myeloma. Given high risk features including IgA MGUS and significantly elevated kappa light chains with abnormal kappa/lambda light chain ratio noted on labs in 05/2021, he would benefit from bone marrow biopsy which can be performed on an outpatient basis to evaluate for multiple myeloma. He has anemia and renal insufficiency, which could be due to underlying plasma cell dyscrasia. Renal insufficiency could of course also be due to his other comorbidities. However, given high risk features as mentioned above, we would be concerned that worsening renal function may be due to underlying plasma cell dyscrasia. While inpatient, recommend obtaining repeat SPEP with immunofixation, 24-hour UPEP with immunofixation, serum free light chains with ratio as well as quantitative immunoglobulins to assess for progression of MGUS. Also recommend obtaining a skeletal survey. PLAN: 1. Recommend obtaining labs including SPEP with BEAU, 24-hour UPEP with BEAU, serum free light chains, quantitative immunoglobulins. 2. Consider obtaining skeletal survey while inpatient. 3. Upon discharge from hospital, will schedule the patient for outpatient bone marrow biopsy to assess for multiple myeloma. Thank you for this consult. Hematology will follow patient upon discharge from hospital. Please feel free to call if you have any further questions. Job ID: [id number] MTDD
[2022-02-19] MEDS: hydrALAZINE TAB 50 MG TAB PO SCH ×2 (14:01→20:26)
--- NOTE | 2022-02-19 15:04 | Cardiology Progress Note ---
Date of Service February 19, 2022 Assessment & Plan (1) Hypertensive emergency: (2) Elevated troponin: (3) Acute on chronic diastolic CHF (congestive heart failure): (4) CAD, multiple vessel: Plan: 1. Acute decompensated diastolic heart failure: He is doing much better. He has had a significant diuresis. He is not appear to be overtly dyspneic. Lung examination relatively benign. His diuretic was switched to bumetanide. Continue to monitor his output, renal function and electrolytes. 2. Hypertension: Improved. ARB discontinued. Now on hydralazine and higher dose of isosorbide. 3. Chest pain: No recurrence. Likely related to pulmonary vascular congestion and abdominal distention. 4. Coronary disease: He does not describe symptoms of exertional chest pain or angina. His revascularization was quite remote, but he is also quite sedentary. Will continue secondary prevention including daily aspirin and high-dose atorvastatin. 5. Bifascicular block: No higher degree heart block. Patient being transferred to the telemetry floor. Will continue to monitor him for worsening dyspnea or element of pulmonary hypertension. Hopefully with better control of his blood pressure we can avoid future episodes. Hopefully he will be able to have a bowel movement soon Admission and Anticipated Discharge Date Admission Date: February 17, 2022 Subjective This afternoon the patient was frustrated at his inability to have a bowel movement. Apparently he was placed on a bedpan. He felt like his butt cheeks simply would not open up to allow the stool 2 past. He felt at times that the stool was reaching the bedpan but would not come out entirely. He thought that perhaps if he was able to take his feet off of the foot rest that he could have a bowel movement. He reports being given stool softener for 3 days and still not having a bowel movement. He had no cardiac complaints. Review of Systems Review of Systems: Per HPI. No significant dyspnea. No ambulation recently. Up in a chair today. Physical Exam Physical Exam: The patient is alert and oriented. Mood and affect appeared normal. He answered all questions appropriately. HEENT: Pupils are equal and reactive to light and accommodation. Extraocular movements are intact. The sclerae are anicteric. Neuro: Cranial nerves intact Lungs: Normal respiratory effort. Essentially clear lung lopez with only occasional crackle. No expiratory wheezing. Cardiac: Heart demonstrates a regular rate and rhythm with frequent ectopy. Normal S1 and S2. Crescendo systolic murmur Pulses: The patient has palpable radial pulses bilaterally that are equal in intensity Extremities: There was no evidence of hypoperfusion. There is no cyanosis or clubbing. No lower extremity edema. Skin: I did not appreciate any rashes on examination today. Results & Data ([facility]) Vital Signs (Past 12 Hours) Vital Signs Temp Pulse Pulse Resp BP BP Pulse Ox 02/19/22 14:00 62 18 150/56 H 95 02/19/22 13:30 62 25 H 125/78 94 02/19/22 13:00 69 19 140/71 98 02/19/22 12:53 70 23 142/76 H 97 02/19/22 12:30 72 29 H 152/69 H 96 02/19/22 12:00 65 18 149/57 H 96 02/19/22 11:52 37.0 C 69 21 145/61 H 96 02/19/22 11:31 75 20 145/61 H 95 02/19/22 11:30 74 17 95 02/19/22 11:00 70 21 146/62 H 94 02/19/22 10:30 76 20 174/76 H 89 L 02/19/22 10:24 74 21 166/85 H 89 L 02/19/22 10:01 81 20 195/81 H 93 02/19/22 10:00 78 12 95 02/19/22 09:35 73 22 162/74 H 97 02/19/22 09:30 69 13 105/60 97 02/19/22 09:20 71 12 138/57 L 98 02/19/22 09:15 62 12 97 02/19/22 09:00 67 15 138/57 L 98 02/19/22 08:49 74 21 145/62 H 94 02/19/22 08:45 76 24 94 02/19/22 08:33 76 19 123/52 L 94 02/19/22 08:30 70 16 114/55 L 91 02/19/22 08:23 82 02/19/22 08:15 80 23 93 02/19/22 08:00 36.8 C 76 80 30 H 146/62 H 199/96 H 93 02/19/22 07:30 80 27 H 190/88 H 96 02/19/22 07:07 85 21 199/96 H 96 02/19/22 07:00 83 26 H 189/97 H 95 02/19/22 06:30 81 22 183/87 H 97 02/19/22 06:00 76 22 165/83 H 96 02/19/22 05:30 79 23 171/77 H 96 02/19/22 05:25 82 26 H 178/83 H 96 02/19/22 05:22 84 26 H 178/84 H 96 02/19/22 05:00 85 24 175/87 H 97 02/19/22 04:30 89 30 H 95 02/19/22 04:00 37.1 C 66 16 119/75 97 02/19/22 03:31 66 19 105/47 L 97 02/19/22 03:30 66 30 H 96 Laboratory Results Abnormal Lab Results 02/19/22 02/19/22 02/19/22 04:48 04:48 08:32 WBC 11.18 H RBC 3.23 L Hgb 9.9 L Hct 29.6 L MCV 91.6 MCH 30.7 MCHC 33.4 RDW Std Deviation 44.2 RDW Coeff of Natalie 13.1 Plt Count 221 MPV 12.6 H Sodium 137 Potassium 4.0 Chloride 101 Carbon Dioxide 28 Anion Gap 8 BUN 57 H Creatinine 3.00 H Est Cr Clr Drug Dosing 20.4 Est GFR ( Amer) 21.4 Est GFR (Non-Af Amer) 18.5 BUN/Creatinine Ratio 19.0 Glucose 109 H POC Glucose 123 H Calcium 8.7 Phosphorus 4.0 Magnesium 1.8 Total Creatine Kinase 02/19/22 10:14 WBC RBC Hgb Hct MCV MCH MCHC RDW Std Deviation RDW Coeff of Natalie Plt Count MPV Sodium Potassium Chloride Carbon Dioxide Anion Gap BUN Creatinine Est Cr Clr Drug Dosing Est GFR ( Amer) Est GFR (Non-Af Amer) BUN/Creatinine Ratio Glucose POC Glucose Calcium Phosphorus Magnesium Total Creatine Kinase 61 PG Care Time/CCT Total # of Minutes Spent Total Time Spent with Patient: Total time spent is greater than 50% in coordination of care (as documented) at patient's floor/unit and/or counseling patient: Coding Level of Care Code 37413 Subseq Hosp Care Lvl 2 Diagnoses Hypertensive emergency I16.1 Elevated troponin R77.8 Acute on chronic diastolic CHF (congestive heart failure) I50.33 CAD, multiple vessel I25.10
[2022-02-19] MEDS ORDERED: SODIUM CHLORIDE 0.9% 1000ML 500 ML IV ONE (17:26)
[2022-02-19 18:19] LABS: Creatinine Clr Calc Pharmacy 19.7 ml/min; Est GFR (African American) 20.7 ml/min; Est GFR (Non-African American) 17.8 ml/min; Potassium 4.8 mmol/L (3.5-5.1)
[2022-02-20] MEDS: hydrALAZINE HCL 20 MG/ML VIAL IV PRN ×2 (03:21→19:11)
[2022-02-20 05:55] LABS: Hematocrit (blood only) 31.6 % (42-52); Hemoglobin 10.8 g/dL (14.0-18.0); Mean Corpuscular Hemoglobin 31.1 pg (25-34); Mean Corpuscular Hgb Conc 34.2 g/dL (32-36); Mean Corpuscular Volume 91.1 fL (80-100); Mean Platelet Volume 12.3 fL (7.4-10.4); Platelet Count 265 K/uL (130-400); RDW Coefficient of Variation 13.2 % (11.5-14.5); RDW Standard Deviation 43.7 fL (36.4-46.3); Red Blood Count 3.47 M/uL (4.7-6.1); White Blood Count 11.21 K/uL (4.8-10.8)
[2022-02-20 06:19] LABS: BUN Creatinine Ratio 21.5 (10-20); Calcium 8.8 mg/dl (8.5-10.1); Creatinine Clr Calc Pharmacy 20.8 ml/min; Potassium 4.2 mmol/L (3.5-5.1)
--- NOTE | 2022-02-20 07:07 | Hospitalist Progress Note ---
Date of Service February 20, 2022 Assessment & Plan (1) Stage 3 chronic kidney disease: Plan: Acute kidney injury and history of chronic kidney disease stage III with diuresis and hypertensive urgency with nephrosclerosis suspected however urine electrophoresis with possible monoclonal band repeat serum electrophoresis urine electrophoresis. Nephrology is following. Changing diuretics from Lasix to Bumex. with concern for monoclonal band, will benefit from skeletal survey and oncology referral with regard to possible renal mass, consider MRI of kidney at some point (2) Acute on chronic diastolic CHF (congestive heart failure): Plan: HFPEF last EF 55-60% 12/10/2021, hypertension, multivessel CAD with history of CABG in 2014, and CKD 3, COPD ABG shows compensated hypercapnia. Acute on chronic diastolic CHF, with elevated troponin no significant trend or recommendations for further risk stratification from cardiology, elevated troponin is demand ischemia Echo normal LV size with LVH EF 55-60 no wall motion abnormalities noted BNP 2317 dietary indiscretion with ham for holiday precipitated events COVID-negative, flu negative, RSV negative managing hypertension urgency with isosorbide/hydralazine, coreg, can add amlodipine if needed Hyperlipidemia Atorvastatin 80 mg as noted History of CABG x4, no stents Aspirin continued atorvastatin continue Continue carvedilol COPD Trace expiratory wheezing on admission On BiPAP Suspicion for acute exacerbation, suspect symptoms due to CHF as above Continue Anor-[address] chest will need follow up Patient had Sorensen balloon blown up in his urethra this was seen by urology had dealt with he has indwelling Sorensen catheter at this time DVT SCDs for now olson to subcu heparin on 02/19/2022 Diet: NPO pending improvement in resp status CODE STATUS: Full Dispo: ICU while titrating nitro gtt (3) COPD (chronic obstructive pulmonary disease) with emphysema: (4) Elevated troponin: (5) Obstructive sleep apnea: (6) Hyperlipidemia: Plan: family updated 02/20/22 Admission and Anticipated Discharge Date Admission Date: February 17, 2022 Subjective pt is recovering, he is extremely weak, difficulty standing at bedside, appreciate renal oversight, will need to complete outpt workup for myeloma Review of Systems Review of Systems: Mild distress and fatigue no headache, no visual changes no speech or swallowing issues no chest pain, pressure or palpitations Persistent shortness of breath, cough or wheezes no abdominal pain, nausea or vomiting, diarrhea or constipation no dysuria, hematuria or frequency no focal joint pain or swelling no back pain, CVA tenderness or radicular pain no bruising, bleeding or rashes no focal signs of weakness or numbness or altered sensation no complaints of anxiety or depression.. Physical Exam Physical Exam: The patient appeared well nourished and normally developed. Vital signs as documented. Head exam is normocephalic atraumatic Neck is without JVD, thyromegaly, or carotid bruits. Lungs are diminished at the bases Cardiac exam, regular rate controlled systolic murmur Abdominal exam reveals normal bowel sounds, soft non tender, no masses Extremities are nonedematous and both pedal pulses are present Neurologic exam is alert and oriented, no focal loss of strength or sensation Skin is without bruises or rashes dried blood near his urethral meatus where the catheter is inserted Psychologically is without concerns for anxiety or depression.. Results & Data Results & Data ([facility]) Vital Signs (Past 12 Hours) Vital Signs Temp Pulse Resp BP BP Pulse Ox 02/20/22 03:45 154/65 H 02/20/22 03:28 98.2 F 02/20/22 03:15 81 29 H 187/79 H 96 02/20/22 03:00 79 24 170/80 H 97 02/20/22 02:31 82 30 H 160/80 H 96 02/20/22 02:30 82 23 97 02/20/22 02:00 78 23 171/105 H 96 02/20/22 01:30 83 23 175/86 H 98 02/20/22 01:12 82 02/20/22 01:00 80 21 161/70 H 98 02/20/22 00:30 82 26 H 161/85 H 97 02/20/22 00:00 85 24 162/80 H 97 02/19/22 23:32 97.9 F 02/19/22 23:30 87 30 H 149/80 H 93 02/19/22 23:00 83 29 H 156/76 H 92 02/19/22 22:30 83 26 H 157/74 H 93 02/19/22 22:00 80 30 H 153/68 H 91 02/19/22 21:30 82 30 H 145/62 H 91 02/19/22 21:00 87 25 H 141/70 H 92 04/21/22 20:30 87 30 H 168/90 H 93 02/19/22 20:00 75 27 H 149/77 H 94 02/19/22 19:32 97.5 F L 168/90 H 02/19/22 19:30 81 24 168/90 H 93 02/19/22 19:16 79 27 H 178/86 H 94 PG Care Time/CCT Total # of Minutes Spent Total Time Spent with Patient: Total time spent is greater than 50% in coordination of care (as documented) at patient's floor/unit and/or counseling patient: Coding Level of Care Code 89217 Subseq Hosp Care Lvl 3 Diagnoses Stage 3 chronic kidney disease N18.3 Acute on chronic diastolic CHF (congestive heart failure) I50.33 COPD (chronic obstructive pulmonary disease) with emphysema J43.9 Elevated troponin R77.8 Obstructive sleep apnea G47.33 Hyperlipidemia E78.5
--- NOTE | 2022-02-20 08:34 | Nephrology Progress Note ---
Date of Service February 20, 2022 Assessment & Plan (1) CKD (chronic kidney disease), stage IV: Plan: * CARMELO/CKD likely due to hypertensive emergency, CHF in the setting of ARB therapy * CKD stage IV/A3 with baseline Cr 2.0 - 2.3 and EGFR 25 cc/min dating back to 2018. UPCR has been ~ 6.0. Renal impairment is on the basis of microvascular disease and hypertensive nephrosclerosis. Outpatient evaluation has revealed an acellular urine sediment. 02/[address] was negative for hydronephrosis but did reveal multiple bilateral renal cysts and and indeterminate 1.8 cm R renal lesion * Patient has requested comfort measures if he progresses to ESKD. He does not want COPY READER * Proteinuria is exacerbated by HTN but 05/21 UIEP was positive for a monoclonal band. * Repeat SPEP and UIEP are pending * Will need skeletal survey once patient is able to stand and undergo x-rays in radiology * Will need outpatient Oncology follow up for possible bone marrow biopsy * Indeterminate 1.8 cm R renal lesion on 02/20 CT scan. Will need MRI as outpatient once medically stable (2) Hypertensive emergency: Plan: * ARB/HCTZ has been stopped * Increase Hydralazine to 1000 mg po QID * Continue Bumetanide 1 mg po BID (net 3.6L diuresis since admission) * Continue Imdur 90 mg po daily * Monitor BP, UO, kidney function (3) Prostate cancer: Plan: * h/o radical prostatectomy * Difficult Sorensen placement. Urology has placed new urinary catheter Admission and Anticipated Discharge Date Admission Date: February 17, 2022 Subjective Mr. Benito was evaluated in his hospital room this morning. He was breathing comfortably flat in bed on RA. NTG gtt has been weaned off but SBP has been 150 - 170 mm Hg overnight Review of Systems Constitutional: no fever Eyes: no problem reported Ear, Nose, Mouth, Throat: no problem reported Respiratory: no cough and no dyspnea Cardiovascular: no chest pain Gastrointestinal: no abdominal pain, no vomiting and no diarrhea/loose stools Integumentary: no rash Neurologic: no confusion Physical Exam Constitutional: + overweight; no acute distress Eyes: PERRL, conjunctivae normal, anicteric sclerae ENMT: external ear and nose normal, oropharynx normal Neck: trachea midline, no thyromegaly Respiratory: normal respiratory effort, lungs clear to auscultation Cardiovascular: RRR, no murmur, no edema Gastrointestinal (Abdomen): normal bowel sounds, soft, nontender, no hepatosplenomegaly Neurologic: awake; not confused Results & Data ([facility]) Vital Signs (Past 12 Hours) Vital Signs Temp Pulse Resp BP BP Pulse Ox 02/20/22 03:45 154/65 H 02/20/22 03:28 36.8 C 02/20/22 03:15 81 29 H 187/79 H 96 02/20/22 03:00 79 24 170/80 H 97 02/20/22 02:31 82 30 H 160/80 H 96 02/20/22 02:30 82 23 97 02/20/22 02:00 78 23 171/105 H 96 02/20/22 01:30 83 23 175/86 H 98 02/20/22 01:12 82 02/20/22 01:00 80 21 161/70 H 98 02/20/22 00:30 82 26 H 161/85 H 97 02/20/22 00:00 85 24 162/80 H 97 02/19/22 23:32 36.6 C 02/19/22 23:30 87 30 H 149/80 H 93 02/19/22 23:00 83 29 H 156/76 H 92 02/19/22 22:30 83 26 H 157/74 H 93 02/19/22 22:00 80 30 H 153/68 H 91 02/19/22 21:30 82 30 H 145/62 H 91 02/19/22 21:00 87 25 H 141/70 H 92 Laboratory Results Laboratory Tests 02/20/22 02/20/22 05:36 05:36 WBC 11.21 H Hgb 10.8 L Hct 31.6 L Plt Count 265 Sodium 139 Potassium 4.2 Chloride 103 Carbon Dioxide 27 BUN 63 H Creatinine 2.93 H Glucose 101 H Calcium 8.8 PG Care Time/CCT Total # of Minutes Spent Total Time Spent with Patient: Total time spent is greater than 50% in coordination of care (as documented) at patient's floor/unit and/or counseling patient: Coding Level of Care Code 97516 Subseq Hosp Care Lvl 3 Diagnoses CKD (chronic kidney disease), stage IV N18.4 Hypertensive emergency I16.1 Prostate cancer C61
[2022-02-20] MEDS: hydrALAZINE TAB 50 MG TAB PO SCH ×3 (09:42→20:44)
[2022-02-20] MEDS: HEPARIN SOD 5,000 UNIT/0.5 ML VIAL SQ SCH ×2 (09:43→20:43)
[2022-02-20] MEDS: BUMETANIDE 1 MG TAB PO SCH ×2 (09:43→20:42)
[2022-02-20] MEDS: ISOSORBIDE MONO EXTENDED REL 30 MG TABCR PO SCH (09:44)
[2022-02-20] MEDS: POTASSIUM CHLORIDE CRTAB 20 MEQ TABCR PO SCH (09:44)
[2022-02-20] MEDS: ATORVASTATIN 40 MG TAB PO SCH ×2 (09:47→10:10)
[2022-02-20] MEDS: DOCUSATE SODIUM 100 MG CAP PO SCH ×2 (09:47→20:42)
[2022-02-20] MEDS: ASPIRIN 81 MG ECTAB PO SCH (09:47)
[2022-02-20] MEDS: carvediloL 12.5 MG TAB PO SCH ×2 (09:47→20:42)
[2022-02-20] MEDS: FERROUS SULFATE 325 MG TAB PO SCH ×2 (09:47→20:42)
[2022-02-20] MEDS: UMECLIDINIUM/VILANTEROL 62.5/25MCG 7 PUFFS/INHALER INH SCH (09:48)
--- NOTE | 2022-02-20 15:38 | Cardiology Progress Note ---
Date of Service February 20, 2022 Assessment & Plan (1) Hypertensive emergency: (2) Elevated troponin: (3) Acute on chronic diastolic CHF (congestive heart failure): (4) CAD, multiple vessel: Plan: 1. Acute decompensated diastolic heart failure: He is doing much better. He has had a significant diuresis. I think would be reasonable to reduce his diuretic dose at any point. Continue to monitor his output, renal function and electrolytes. 2. Hypertension: Improved. ARB discontinued. Now on a higher dose of hydralazine and isosorbide. Consideration could be given to adding amlodipine for persistently elevated blood pressures. 3. Chest pain: No recurrence. Likely related to pulmonary vascular congestion and abdominal distention. 4. Coronary disease: He does not describe symptoms of exertional chest pain or angina. His revascularization was quite remote, but he is also quite sedentary. Will continue secondary prevention including daily aspirin and high-dose atorvastatin. 5. Bifascicular block: No higher degree heart block. He seems quite compensated now from a cardiac standpoint. Hopefully his kidney function will improve. Being evaluated for possible myeloma. At this point, Cardiology will sign off. We can see him in the outpatient setting depending on his disposition. If there are further questions regarding his cardiac condition, please contact the on-call [facility] echocardiography tech. Admission and Anticipated Discharge Date Admission Date: February 17, 2022 Subjective A 70 in the patient's main concern was difficulty having a bowel movement and not getting enough sleep. He did not report any breathing difficulty. No chest pain. No abdominal discomfort. Apparently he is tolerating his diet. No ambulation however. Review of Systems Review of Systems: Per HPI Physical Exam Physical Exam: The patient is alert and oriented. Mood and affect appeared normal. He answered all questions appropriately. HEENT: Pupils are equal and reactive to light and accommodation. Extraocular movements are intact. The sclerae are anicteric. Neuro: Cranial nerves intact Lungs: Normal respiratory effort. Essentially clear lung lopez with only occasional crackle. No expiratory wheezing. Cardiac: Heart demonstrates a regular rate and rhythm with frequent ectopy. Normal S1 and S2. Crescendo systolic murmur Pulses: The patient has palpable radial pulses bilaterally that are equal in intensity Extremities: There was no evidence of hypoperfusion. There is no cyanosis or clubbing. No lower extremity edema. Skin: I did not appreciate any rashes on examination today. Results & Data ([facility]) Vital Signs (Past 12 Hours) Vital Signs Temp BP 02/20/22 12:00 36.8 C 02/20/22 08:00 36.8 C 02/20/22 03:45 154/65 H Laboratory Results Abnormal Lab Results 02/19/22 02/20/22 02/20/22 17:30 05:36 05:36 WBC 11.21 H RBC 3.47 L Hgb 10.8 L Hct 31.6 L MCV 91.1 MCH 31.1 MCHC 34.2 RDW Std Deviation 43.7 RDW Coeff of Natalie 13.2 Plt Count 265 MPV 12.3 H Sodium 139 139 Potassium 4.8 4.2 Chloride 101 103 Carbon Dioxide 29 27 Anion Gap 9 9 BUN 65 H 63 H Creatinine 3.09 H 2.93 H Est Cr Clr Drug Dosing 19.7 20.8 Est GFR ( Amer) 20.7 22.0 Est GFR (Non-Af Amer) 17.8 19.0 BUN/Creatinine Ratio 21.0 H 21.5 H Glucose 156 H 101 H Calcium 9.0 8.8 PG Care Time/CCT Total # of Minutes Spent Total Time Spent with Patient: Total time spent is greater than 50% in coordination of care (as documented) at patient's floor/unit and/or counseling patient: Coding Level of Care Code 95458 Subseq Hosp Care Lvl 2 Diagnoses Hypertensive emergency I16.1 Elevated troponin R77.8 Acute on chronic diastolic CHF (congestive heart failure) I50.33 CAD, multiple vessel I25.10
[2022-02-20] MEDS: MELATONIN 3 MG TAB PO SCH (20:42)
[2022-02-21] MEDS: hydrALAZINE HCL 20 MG/ML VIAL IV PRN (04:06)
[2022-02-21 04:59] LABS: BUN Creatinine Ratio 23.2 (10-20); Calcium 8.9 mg/dl (8.5-10.1); Creatinine Clr Calc Pharmacy 20.5 ml/min; Est GFR (African American) 21.7 ml/min; Est GFR (Non-African American) 18.7 ml/min; Potassium 4.4 mmol/L (3.5-5.1)
[2022-02-21] MEDS: hydrALAZINE TAB 50 MG TAB PO SCH ×3 (07:39→20:48)
[2022-02-21] MEDS: ASPIRIN 81 MG ECTAB PO SCH (07:40)
[2022-02-21] MEDS: ISOSORBIDE MONO EXTENDED REL 30 MG TABCR PO SCH (07:40)
[2022-02-21] MEDS: carvediloL 12.5 MG TAB PO SCH (07:44)
[2022-02-21] MEDS: UMECLIDINIUM/VILANTEROL 62.5/25MCG 7 PUFFS/INHALER INH SCH (07:44)
[2022-02-21] MEDS: BUMETANIDE 1 MG TAB PO SCH (07:45)
[2022-02-21] MEDS: POTASSIUM CHLORIDE CRTAB 20 MEQ TABCR PO SCH (07:46)
[2022-02-21] MEDS: DOCUSATE SODIUM 100 MG CAP PO SCH ×2 (07:46→20:49)
[2022-02-21] MEDS: HEPARIN SOD 5,000 UNIT/0.5 ML VIAL SQ SCH ×2 (07:46→20:48)
[2022-02-21] MEDS: FERROUS SULFATE 325 MG TAB PO SCH ×2 (07:46→20:50)
[2022-02-21] MEDS ORDERED: carvediloL 12.5 MG TAB PO ONE (09:45)
[2022-02-21] MEDS: SPIRONOLACTONE 25 MG TAB PO SCH (10:50)
--- NOTE | 2022-02-21 11:15 | Nephrology Progress Note ---
Date of Service February 21, 2022 Assessment & Plan (1) CKD (chronic kidney disease), stage IV: (2) Acute kidney injury: (3) Hypertensive emergency: (4) Anemia: Plan: 81-year-old male with stage IV CKD, baseline creatinine 2.0-2.3, poorly controlled hypertension, TEENA, diastolic CHF, cAD s/p CABG in 2014 admitted to the hospital with hypertensive emergency and flash pulmonary edema, after presented to hospital with worsening shortness of breath. On admission he was found to have AK I with creatinine 3.0 which has been staying relatively stable without any further improvement. Blood pressure continues to be elevated with multiple medication adjustment, off of losartan hydrochlorothiazide since admission. --Start on spironolactone 50 mg p.o. daily and increase dose as needed, monitor serum potassium,. Potassium supplement. Considering hypertensive urgency with persistently elevated blood pressure and CARMELO, will order renal Doppler as patient has h/o atherosclerotic disease. --Monitor renal function electrolyte daily monitor intake and output, keep even to slightly negative balance, okay to continue on Bumex, may need to increase the dose. --Will check iron study, phosphate Will follow Admission and Anticipated Discharge Date Admission Date: February 17, 2022 Nafisa Chang Was seen and examined in his room this morning. He feels thirsty but denies any other significant concern except bothered by difficulty with Sorensen catheter placement. Urine output decent. Blood pressure remained significantly elevated. No further improvement in renal function, creatinine staying around 3 since admission, electrolyte acceptable. Review of Systems Review of Systems: Detailed review of system was otherwise unremarkable. Physical Exam Constitutional: WD/WN, vitals as above no acute distress Respiratory: no respiratory distress Auscultation: + diminished lung sounds Cardiovascular: Rate/Rhythm: regular rate and regular rhythm Extremities: no edema Skin: no rashes Neurologic: no focal motor deficits and not confused Psychiatric: Orientation: alert and oriented x 3 Results & Data ([facility]) Vital Signs (Past 12 Hours) Vital Signs Temp Pulse Pulse Resp BP BP Pulse Ox 02/21/22 08:00 36.8 C 91 H 20 145/90 H 91 02/21/22 04:43 166/63 H 02/21/22 04:00 36.7 C 89 16 211/95 H 92 02/21/22 03:30 92 H 18 94 02/21/22 03:00 92 H 26 H 94 02/21/22 02:30 93 H 28 H 92 02/21/22 02:00 87 28 H 93 02/21/22 01:30 82 15 93 02/21/22 01:00 76 19 94 02/21/22 00:34 84 22 93 02/21/22 00:01 87 02/21/22 00:00 83 28 H 169/82 H 93 02/20/22 23:59 36.5 C 80 16 169/82 H 92 02/20/22 23:30 77 25 H 92 PG Care Time/CCT Total # of Minutes Spent Total Time Spent with Patient: Total time spent is greater than 50% in coordination of care (as documented) at patient's floor/unit and/or counseling patient: Coding Level of Care Code 90577 Subseq Hosp Care Lvl 3 Diagnoses CKD (chronic kidney disease), stage IV N18.4 Acute kidney injury N17.9 Hypertensive emergency I16.1 Anemia D64.9
--- NOTE | 2022-02-21 13:47 | Hospitalist Progress Note ---
Date of Service February 21, 2022 Assessment & Plan (1) Stage 3 chronic kidney disease: Plan: Acute kidney injury and history of chronic kidney disease stage III with diuresis and hypertensive urgency with nephrosclerosis suspected however urine electrophoresis with possible monoclonal band repeat serum electrophoresis urine electrophoresis. Nephrology is following. Changing diuretics from Lasix to Bumex. with concern for monoclonal band, will benefit from skeletal survey and oncology referral with regard to possible renal mass, consider MRI of kidney at some point Nephrology is ordered a renal artery ultrasound Patient with hypertensive urgency he is now on hydralazine 100 3 times daily isosorbide 90 spironolactone 50 Bumex 1 mg daily (2) Acute on chronic diastolic CHF (congestive heart failure): Plan: HFPEF last EF 55-60% 12/10/2021, hypertension, multivessel CAD with history of CABG in 2014, and CKD 3, COPD ABG shows compensated hypercapnia. Acute on chronic diastolic CHF, with elevated troponin no significant trend or recommendations for further risk stratification from cardiology, elevated troponin is demand ischemia Echo normal LV size with LVH EF 55-60 no wall motion abnormalities noted BNP 2317 dietary indiscretion with ham for holiday precipitated events COVID-negative, flu negative, RSV negative managing hypertension urgency with isosorbide/hydralazine, coreg, can add amlodipine if needed Hyperlipidemia Atorvastatin 80 mg as noted History of CABG x4, no stents Aspirin continued atorvastatin continue Continue carvedilol increased dose to 25 twice daily COPD Trace expiratory wheezing on admission On BiPAP Suspicion for acute exacerbation, suspect symptoms due to CHF as above Continue Anor-[address] chest will need follow up Patient had Sorensen balloon blown up in his urethra this was seen by urology had dealt with he has indwelling Sorensen catheter at this time DVT SCDs for now subcu heparin on 02/19/2022 renal dose adjusted Diet: Low-salt diet CODE STATUS: Full Dispo: Patient titrated off nitro drip now in PCU status (3) COPD (chronic obstructive pulmonary disease) with emphysema: (4) Elevated troponin: (5) Obstructive sleep apnea: (6) Hyperlipidemia: Plan: family updated 02/20/22 Admission and Anticipated Discharge Date Admission Date: February 17, 2022 Subjective Patient is in no acute distress or problems he is having some resting tremors and stiffness when turning over the bed according to nursing staff. We will try dose of Sinemet to see if it improves his mobility get physical therapy involved. If the Sinemet does help we will engage him with neurology consultation. At this point time nephrology is altering his diuretics pending renal artery ultrasound and I did escalate carvedilol with good result and blood pressure control Review of Systems Review of Systems: Mild distress and fatigue no headache, no visual changes no speech or swallowing issues no chest pain, pressure or palpitations Persistent shortness of breath, cough or wheezes no abdominal pain, nausea or vomiting, diarrhea or constipation no dysuria, hematuria or frequency no focal joint pain or swelling no back pain, CVA tenderness or radicular pain no bruising, bleeding or rashes no focal signs of weakness or numbness or altered sensation no complaints of anxiety or depression.. Physical Exam Physical Exam: The patient appeared well nourished and normally developed. Vital signs as documented. Head exam is normocephalic atraumatic Neck is without JVD, thyromegaly, or carotid bruits. Lungs are diminished at the bases Cardiac exam, regular rate controlled systolic murmur Abdominal exam reveals normal bowel sounds, soft non tender, no masses Extremities are nonedematous and both pedal pulses are present Neurologic exam is alert and oriented, no focal loss of strength or sensation Skin is without bruises or rashes dried blood near his urethral meatus where the catheter is inserted Psychologically is without concerns for anxiety or depression.. Results & Data Results & Data ([facility]) Vital Signs (Past 12 Hours) Vital Signs Temp Pulse Pulse Resp BP Pulse Ox 02/21/22 12:00 98.2 F 69 18 128/69 94 02/21/22 08:00 98.2 F 91 H 20 145/90 H 91 02/21/22 04:43 166/63 H 02/21/22 04:00 98.1 F 89 16 211/95 H 92 02/21/22 03:30 92 H 18 94 02/21/22 03:00 92 H 26 H 94 02/21/22 02:30 93 H 28 H 92 02/21/22 02:00 87 28 H 93 PG Care Time/CCT Total # of Minutes Spent Total Time Spent with Patient: Total time spent is greater than 50% in coordination of care (as documented) at patient's floor/unit and/or counseling patient: Coding Level of Care Code 74617 Subseq Hosp Care Lvl 3 Diagnoses Stage 3 chronic kidney disease N18.3 Acute on chronic diastolic CHF (congestive heart failure) I50.33 COPD (chronic obstructive pulmonary disease) with emphysema J43.9 Elevated troponin R77.8 Obstructive sleep apnea G47.33 Hyperlipidemia E78.5
[2022-02-21] MEDS: CARBIDOPA/LEVODOPA 25/100MG TAB PO SCH ×2 (14:42→21:26)
[2022-02-21] MEDS: POLYETHYLENE (MIRALAX) 17 GM PACK PO PRN (16:34)
--- NOTE | 2022-02-21 16:36 | Ultrasound Report ---
US duplex renal artery CLINICAL HISTORY: hypertensive urgency, acute kidney injury COMPARISON STUDY: Renal artery duplex ultrasound 05/20/2017. FINDINGS: The patient deferred imaging of the left kidney. The right kidney measures 11.8 cm. Echogen ic cortex suggesting medical renal disease. There is a 1.8 cm hypoechoic lesion within the lower pole . This does not clearly represent a simple cyst. Renal vein is patent. The right renal artery was not well visualized due to overlying bowel gas and patient motion. The peak systolic velocity within the distal right renal artery was 51 cm/s. IMPRESSION: 1. Echogenic right kidney consistent with medical renal disease. 2. Indeterminate 1.8 cm hypoechoic lesion within the lower pole of the right kidney. This can be asse ssed with follow-up nonemergent dedicated renal MRI. 3. The right renal artery was not well visualized due to overlying bowel gas and patient motion. Only the distal right renal artery was identified which demonstrates normal velocities and no evidence fo r stenosis. ACT 112: Negative or not required by law. Electronically signed by: Lamonte Napier M.D. 02/21/2022 4:33 PM
[2022-02-21] MEDS: carvediloL 25 MG TAB PO SCH (20:50)
[2022-02-21] MEDS: MELATONIN 3 MG TAB PO SCH (21:26)
[2022-02-22 07:05] LABS: BUN Creatinine Ratio 24.1 (10-20); Calcium 8.7 mg/dl (8.5-10.1); Est GFR (African American) 19.6 ml/min; Est GFR (Non-African American) 16.9 ml/min; Potassium 4.5 mmol/L (3.5-5.1)
[2022-02-22] MEDS: ASPIRIN 81 MG ECTAB PO SCH (08:29)
[2022-02-22] MEDS: hydrALAZINE TAB 50 MG TAB PO SCH ×3 (08:29→20:17)
[2022-02-22] MEDS: DOCUSATE SODIUM 100 MG CAP PO SCH ×2 (08:29→20:19)
[2022-02-22] MEDS: SPIRONOLACTONE 25 MG TAB PO SCH (08:29)
[2022-02-22] MEDS: CARBIDOPA/LEVODOPA 25/100MG TAB PO SCH ×2 (08:30→20:15)
[2022-02-22] MEDS: carvediloL 25 MG TAB PO SCH ×2 (08:30→20:15)
[2022-02-22] MEDS: HEPARIN SOD 5,000 UNIT/0.5 ML VIAL SQ SCH ×2 (08:30→20:16)
[2022-02-22] MEDS: UMECLIDINIUM/VILANTEROL 62.5/25MCG 7 PUFFS/INHALER INH SCH (08:30)
[2022-02-22] MEDS: FERROUS SULFATE 325 MG TAB PO SCH ×2 (08:30→20:16)
[2022-02-22] MEDS: BUMETANIDE 1 MG TAB PO SCH (08:30)
[2022-02-22] MEDS: ISOSORBIDE MONO EXTENDED REL 30 MG TABCR PO SCH (08:30)
--- NOTE | 2022-02-22 10:24 | Nephrology Progress Note ---
Date of Service February 22, 2022 Assessment & Plan (1) CKD (chronic kidney disease), stage IV: (2) Acute kidney injury: (3) Hypertensive emergency: (4) Anemia: Plan: 81-year-old male with stage IV CKD, baseline creatinine 2.0-2.3, poorly controlled hypertension, TEENA, diastolic CHF, cAD s/p CABG in 2014 admitted to the hospital with hypertensive emergency and flash pulmonary edema, after presented to hospital with worsening shortness of breath. On admission he was found to have AK I with creatinine 3.0 which has been staying relatively stable without any further improvement. Blood pressure continues to be elevated with multiple medication adjustment, off of losartan hydrochlorothiazide since admission. Volume status acceptable, net negative, blood pressure much improved. Slight worsening of renal function however electrolyte acceptable. renal artery Doppler was inconclusive, there was no hemodynamically significant right renal artery stenosis however exam was suboptimal because of bowel gas and patient refused left renal artery to be evaluated. --Discontinue Bumex, continue on on spironolactone 50 mg p.o. daily and increase dose as needed, monitor serum potassium. --Monitor renal function electrolyte daily monitor intake and output. --Start on Venofer. Will follow Admission and Anticipated Discharge Date Admission Date: February 17, 2022 Nafisa Chang was seen and examined in his room this morning. He mainly complains about feeling very anxious with his roommate being noisy. denies any other specific symptoms. Urine output decent, total negative almost 5 liters since admission.. Blood pressure much improved. Slight worsening of renal function to creatinine to 3.2, electrolyte acceptable. Review of Systems Review of Systems: Detailed review of system was otherwise unremarkable. Physical Exam Constitutional: WD/WN, vitals as above no acute distress Respiratory: no respiratory distress Auscultation: + diminished lung sounds Cardiovascular: Rate/Rhythm: regular rate and regular rhythm Extremities: no edema Skin: no rashes Neurologic: no focal motor deficits and not confused Psychiatric: Orientation: alert and oriented x 3 Results & Data ([facility]) Vital Signs (Past 12 Hours) Vital Signs Temp Pulse Pulse Resp BP Pulse Ox 02/22/22 07:26 36.9 C 82 18 145/76 H 92 02/22/22 03:00 37.0 C 77 16 147/81 H 91 02/21/22 23:18 37.1 C 75 20 127/68 93 02/21/22 22:52 75 PG Care Time/CCT Total # of Minutes Spent Total Time Spent with Patient: Total time spent is greater than 50% in coordination of care (as documented) at patient's floor/unit and/or counseling patient: Coding Level of Care Code 42665 Subseq Hosp Care Lvl 3 Diagnoses CKD (chronic kidney disease), stage IV N18.4 Acute kidney injury N17.9 Hypertensive emergency I16.1 Anemia D64.9
--- NOTE | 2022-02-22 11:08 | Hospitalist Progress Note ---
Date of Service February 22, 2022 Assessment & Plan (1) Stage 3 chronic kidney disease: Plan: Acute kidney injury and history of chronic kidney disease stage III with diuresis and hypertensive urgency with nephrosclerosis suspected however urine electrophoresis with possible monoclonal band repeat serum electrophoresis urine electrophoresis. Nephrology is following. Changing diuretics from Lasix to Bumex. with concern for monoclonal band, will benefit from skeletal survey and oncology referral with regard to possible renal mass, consider MRI of kidney at some point Nephrology is ordered a renal artery ultrasound which is nonconclusive for any renal artery stenosis Patient with hypertensive urgency he is now on hydralazine 100mg 3 times daily isosorbide 90 spironolactone 50 Bumex 1 mg daily spironolactone 50 per nephrology (2) Acute on chronic diastolic CHF (congestive heart failure): Plan: HFPEF last EF 55-60% 12/10/2021, hypertension, multivessel CAD with history of CABG in 2014, and CKD 3, COPD ABG shows compensated hypercapnia. Acute on chronic diastolic CHF, with elevated troponin no significant trend or recommendations for further risk stratification from cardiology, elevated troponin is demand ischemia Echo normal LV size with LVH EF 55-60 no wall motion abnormalities noted BNP 2317 dietary indiscretion with ham for holiday precipitated events COVID-negative, flu negative, RSV negative managing hypertension urgency with isosorbide/hydralazine, coreg, blood pressure better controlled with higher doses of carvedilol Hyperlipidemia Atorvastatin 80 mg as noted History of CABG x4, no stents Aspirin continued atorvastatin continue Continue carvedilol increased dose to 25 twice daily COPD Trace expiratory wheezing on admission On BiPAP Suspicion for acute exacerbation, suspect symptoms due to CHF as above Continue Anor-[address] chest will need follow up Patient had Sorensen balloon blown up in his urethra this was seen by urology had dealt with he has indwelling Sorensen catheter at this time catheter is not been an issue there is hospital stable likely will remain in place until seen in the outpatient urology follow-up appointment DVT SCDs for now subcu heparin on 02/19/2022 renal dose adjusted Diet: Low-salt diet CODE STATUS: Full Dispo: Patient titrated off nitro drip now in PCU status (3) COPD (chronic obstructive pulmonary disease) with emphysema: (4) Elevated troponin: (5) Obstructive sleep apnea: (6) Hyperlipidemia: Plan: family updated 02/20/22 Admission and Anticipated Discharge Date Admission Date: February 17, 2022 Subjective Patient did have a positive response yesterday to the lower dose of Sinemet with regard to decreasing tremor and increasing movement. Today he is having some mild anxiety which also could be a side effect of this medicine. We will continue to watch his clinical course unfold. Nephrology is content with his renal function at this point time continuing on the spironolactone and Bumex once a day watch his renal function as we may need to reduce doses if his continues to climb Review of Systems Review of Systems: Mild distress and fatigue no headache, no visual changes no speech or swallowing issues no chest pain, pressure or palpitations Persistent shortness of breath, cough or wheezes no abdominal pain, nausea or vomiting, diarrhea or constipation no dysuria, hematuria or frequency no focal joint pain or swelling no back pain, CVA tenderness or radicular pain no bruising, bleeding or rashes no focal signs of weakness or numbness or altered sensation does have resting tremor and reportedly is stiff when he tries to walk no complaints of anxiety or depression.. Physical Exam Physical Exam: The patient appeared well nourished and normally developed. Vital signs as documented. Head exam is normocephalic atraumatic Neck is without JVD, thyromegaly, or carotid bruits. Lungs are diminished at the bases Cardiac exam, regular rate controlled systolic murmur Abdominal exam reveals normal bowel sounds, soft non tender, no masses Extremities are nonedematous and both pedal pulses are present Neurologic exam is alert and oriented, no focal loss of strength or sensation positive resting tremor but does have expression with the motion Skin is without bruises or rashes Psychologically is without concerns for anxiety or depression.. Results & Data Results & Data ([facility]) Vital Signs (Past 12 Hours) Vital Signs Temp Pulse Resp BP Pulse Ox 02/22/22 07:26 98.4 F 82 18 145/76 H 92 02/22/22 03:00 98.6 F 77 16 147/81 H 91 02/21/22 23:18 98.8 F 75 20 127/68 93 PG Care Time/CCT Total # of Minutes Spent Total Time Spent with Patient: Total time spent is greater than 50% in coordination of care (as documented) at patient's floor/unit and/or counseling patient: Coding Level of Care Code 95087 Subseq Hosp Care Lvl 2 Diagnoses Stage 3 chronic kidney disease N18.3 Acute on chronic diastolic CHF (congestive heart failure) I50.33 COPD (chronic obstructive pulmonary disease) with emphysema J43.9 Elevated troponin R77.8 Obstructive sleep apnea G47.33 Hyperlipidemia E78.5
[2022-02-22] MEDS: LORazepam 0.5 MG TAB PO PRN ×2 (11:25→20:14)
[2022-02-22] MEDS: IRON SUCROSE 200 MG in 0.9 % SODIUM CHLORIDE 100 ML IV SCH (11:25)
[2022-02-22] MEDS: MELATONIN 3 MG TAB PO SCH (20:19)
[2022-02-23 07:37] LABS: BUN Creatinine Ratio 23.8 (10-20); Calcium 8.7 mg/dl (8.5-10.1); Creatinine Clr Calc Pharmacy 18.3 ml/min; Est GFR (Non-African American) 16.4 ml/min; Phosphorus 4.8 mg/dl (2.5-4.9); Potassium 4.5 mmol/L (3.5-5.1)
[2022-02-23] MEDS: ISOSORBIDE MONO EXTENDED REL 30 MG TABCR PO SCH (09:41)
[2022-02-23] MEDS: FERROUS SULFATE 325 MG TAB PO SCH ×2 (09:41→09:45)
[2022-02-23] MEDS: carvediloL 25 MG TAB PO SCH ×2 (09:41→21:08)
[2022-02-23] MEDS: HEPARIN SOD 5,000 UNIT/0.5 ML VIAL SQ SCH ×2 (09:42→21:10)
[2022-02-23] MEDS: hydrALAZINE TAB 50 MG TAB PO SCH ×3 (09:43→21:08)
[2022-02-23] MEDS: CARBIDOPA/LEVODOPA 25/100MG TAB PO SCH ×2 (09:43→21:08)
[2022-02-23] MEDS: SPIRONOLACTONE 25 MG TAB PO SCH (09:43)
[2022-02-23] MEDS: IRON SUCROSE 200 MG in 0.9 % SODIUM CHLORIDE 100 ML IV SCH (09:45)
[2022-02-23] MEDS: ASPIRIN 81 MG ECTAB PO SCH (09:45)
[2022-02-23] MEDS: DOCUSATE SODIUM 100 MG CAP PO SCH ×2 (09:45→22:15)
[2022-02-23] MEDS: UMECLIDINIUM/VILANTEROL 62.5/25MCG 7 PUFFS/INHALER INH SCH (09:46)
--- NOTE | 2022-02-23 10:21 | Nephrology Progress Note ---
Date of Service February 23, 2022 Assessment & Plan (1) CKD (chronic kidney disease), stage IV: (2) Acute kidney injury: (3) Hypertensive emergency: (4) Anemia: Plan: 81-year-old male with stage IV CKD, b/l cr 2.0-2.3, poorly controlled hypertension, TEENA, diastolic CHF, cAD s/p CABG in 2014 admitted to the hospital with hypertensive emergency and flash pulmonary edema, after presented to hospital with worsening shortness of breath. On admission he was found to have AK I with creatinine 3.0 which has been staying relatively stable without any further improvement. Blood pressure continues to be elevated with multiple medication adjustment, off of losartan hydrochlorothiazide since admission. Volume status acceptable but blood pressure much continues to be variable. No improvement in renal function however electrolyte acceptable. renal artery Dopp ler was inconclusive, there was no hemodynamically significant right renal artery stenosis however exam was suboptimal because of bowel gas and patient refused left renal artery to be evaluated. -- start on amlodipine 10 mg p.o. daily, although medical record showed history of questionable allergy however unclear what kind of allergy, will monitor for any allergic reaction, if patient tolerates without any adverse effect, will continue --continue on on spironolactone 50 mg p.o. daily and increase dose as needed, monitor serum potassium. --Monitor renal function electrolyte daily monitor intake and output. --on Venofer. Will follow Admission and Anticipated Discharge Date Admission Date: February 17, 2022 Nafisa Chang was seen and examined in his room this morning. He continues to complains about feeling very anxious, denies any other specific symptoms. Urine output decent. Blood pressure continues to be variable with systolic blood pressure going up to 170s to 180s. no further improvement in renal function, creatinine staying around 3.2-3.3 last few days, electrolyte acceptable. Review of Systems Review of Systems: Detailed review of system was otherwise unremarkable. Physical Exam Constitutional: WD/WN, vitals as above no acute distress Respiratory: no respiratory distress Auscultation: + diminished lung sounds Cardiovascular: Rate/Rhythm: regular rate and regular rhythm Extremities: no edema Skin: no rashes Neurologic: no focal motor deficits and not confused Psychiatric: Orientation: alert and oriented x 3 Results & Data ([facility]) Vital Signs (Past 12 Hours) Vital Signs Temp Pulse Pulse Resp BP Pulse Ox 02/23/22 07:43 63 02/23/22 07:36 36.3 C L 72 20 184/84 H 91 02/23/22 03:00 36.6 C 69 20 145/79 H 95 02/23/22 00:26 61 02/22/22 22:52 36.4 C L 69 18 150/80 H 90 PG Care Time/CCT Total # of Minutes Spent Total Time Spent with Patient: Total time spent is greater than 50% in coordination of care (as documented) at patient's floor/unit and/or counseling patient: Coding Level of Care Code 26472 Subseq Hosp Care Lvl 3 Diagnoses CKD (chronic kidney disease), stage IV N18.4 Acute kidney injury N17.9 Hypertensive emergency I16.1 Anemia D64.9
[2022-02-23] MEDS: amLODIPine BESYLATE 5 MG TAB PO SCH (11:18)
[2022-02-23] MEDS: POLYETHYLENE (MIRALAX) 17 GM PACK PO PRN (13:43)
[2022-02-23] MEDS: LORazepam 0.5 MG TAB PO PRN (15:28)
--- NOTE | 2022-02-23 17:43 | Hospitalist Progress Note ---
Date of Service February 23, 2022 Assessment & Plan (1) Stage 3 chronic kidney disease: Plan: Acute kidney injury and history of chronic kidney disease stage III with diuresis and hypertensive urgency with nephrosclerosis suspected however urine electrophoresis with possible monoclonal band repeat serum electrophoresis urine electrophoresis. Nephrology is following. Changing diuretics from Lasix to Bumex, reduced dose follow with slight trend of CR, nephrology oversight. with concern for monoclonal band, will benefit from skeletal survey and oncology referral with regard to possible renal mass, consider MRI of kidney at some point Nephrology is ordered a renal artery ultrasound which is nonconclusive for any renal artery stenosis Patient with hypertensive urgency he is now on coreg 25 bid hydralazine 100mg 3 times daily isosorbide 90 spironolactone 50 Bumex 1 mg daily spironolactone 50 per nephrology (2) Acute on chronic diastolic CHF (congestive heart failure): Plan: HFPEF last EF 55-60% 12/10/2021, hypertension, multivessel CAD with history of CABG in 2014, and CKD 3, COPD ABG shows compensated hypercapnia. Acute on chronic diastolic CHF, with elevated troponin no significant trend or recommendations for further risk stratification from cardiology, elevated troponin is demand ischemia Echo normal LV size with LVH EF 55-60 no wall motion abnormalities noted BNP 2317 dietary indiscretion with ham for holiday precipitated events COVID-negative, flu negative, RSV negative managing hypertension urgency with isosorbide/hydralazine, coreg, blood pressure better controlled with higher doses of carvedilol Hyperlipidemia Atorvastatin 80 mg as noted History of CABG x4, no stents Aspirin continued atorvastatin continue Continue carvedilol increased dose to 25 twice daily COPD Trace expiratory wheezing on admission On BiPAP Suspicion for acute exacerbation, suspect symptoms due to CHF as above Continue Anor-[address] chest will need follow up Patient had Sorensen balloon blown up in his urethra this was seen by urology had dealt with he has indwelling Sorensen catheter at this time catheter is not been an issue there is hospital stable likely will remain in place until seen in the outpatient urology follow-up appointment Resting tremor and stiffened gait, trial of sinemet seems to have positive affect, continue DVT SCDs for now subcu heparin on 02/19/2022 renal dose adjusted Diet: Low-salt diet CODE STATUS: Full Dispo: Patient titrated off nitro drip now in PCU status (3) COPD (chronic obstructive pulmonary disease) with emphysema: (4) Elevated troponin: (5) Obstructive sleep apnea: (6) Hyperlipidemia: Plan: family updated 02/20/22 Admission and Anticipated Discharge Date Admission Date: February 17, 2022 Review of Systems Review of Systems: Mild distress and fatigue no headache, no visual changes no speech or swallowing issues no chest pain, pressure or palpitations Persistent shortness of breath mostly dyspnea on exertion cough or wheezes no abdominal pain, nausea or vomiting, diarrhea or constipation no dysuria, hematuria or frequency no focal joint pain or swelling no back pain, CVA tenderness or radicular pain no bruising, bleeding or rashes no focal signs of weakness or numbness or altered sensation Patient feels has improvement of resting tremor and reportedly is stiff when he tries to walk after we initiated Sinemet therapy no complaints of anxiety or depression.. Physical Exam Physical Exam: The patient appeared well nourished and normally developed. Vital signs as documented. Head exam is normocephalic atraumatic Neck is without JVD, thyromegaly, or carotid bruits. Lungs are diminished at the bases Cardiac exam, regular rate controlled systolic murmur Abdominal exam reveals normal bowel sounds, soft non tender, no masses Extremities are nonedematous and both pedal pulses are present Neurologic exam is alert and oriented, no focal loss of strength or sensation positive resting tremor but does have expression with the motion Skin is without bruises or rashes Psychologically is without concerns for anxiety or depression.. Results & Data Results & Data ([facility]) Vital Signs (Past 12 Hours) Vital Signs Temp Pulse Pulse Resp BP Pulse Ox 02/23/22 15:00 97.2 F L 67 18 128/80 93 02/23/22 11:32 97.5 F L 60 20 125/65 92 02/23/22 07:43 63 02/23/22 07:36 97.3 F L 72 20 184/84 H 91 PG Care Time/CCT Total # of Minutes Spent Total Time Spent with Patient: Total time spent is greater than 50% in coordination of care (as documented) at patient's floor/unit and/or counseling patient: Coding Level of Care Code 27648 Subseq Hosp Care Lvl 2 Diagnoses Stage 3 chronic kidney disease N18.3 Acute on chronic diastolic CHF (congestive heart failure) I50.33 COPD (chronic obstructive pulmonary disease) with emphysema J43.9 Elevated troponin R77.8 Obstructive sleep apnea G47.33 Hyperlipidemia E78.5
[2022-02-23] MEDS: hydrALAZINE HCL 20 MG/ML VIAL IV PRN (21:02)
[2022-02-23] MEDS: POLYETHYLENE (MIRALAX) 17 GM PACK PO SCH (22:15)
[2022-02-23] MEDS: MELATONIN 3 MG TAB PO SCH (22:15)
[2022-02-24 08:07] LABS: Albumin Level 3.1 gm/dl (3.4-5.0); BUN Creatinine Ratio 23.2 (10-20); Calcium 8.8 mg/dl (8.5-10.1); Creatinine Clr Calc Pharmacy 16.7 ml/min; Est GFR (African American) 16.8 ml/min; Est GFR (Non-African American) 14.5 ml/min; Phosphorus 5.2 mg/dl (2.5-4.9); Potassium 4.8 mmol/L (3.5-5.1)
[2022-02-24] MEDS: POLYETHYLENE (MIRALAX) 17 GM PACK PO SCH (08:47)
[2022-02-24] MEDS: DOCUSATE SODIUM 100 MG CAP PO SCH ×2 (08:49→21:43)
[2022-02-24] MEDS: hydrALAZINE TAB 50 MG TAB PO SCH ×3 (08:50→21:44)
[2022-02-24] MEDS: CARBIDOPA/LEVODOPA 25/100MG TAB PO SCH ×2 (08:50→21:43)
[2022-02-24] MEDS: carvediloL 25 MG TAB PO SCH ×2 (08:51→21:44)
[2022-02-24] MEDS: ASPIRIN 81 MG ECTAB PO SCH (08:51)
[2022-02-24] MEDS: SPIRONOLACTONE 25 MG TAB PO SCH (08:52)
[2022-02-24] MEDS: ISOSORBIDE MONO EXTENDED REL 30 MG TABCR PO SCH (08:52)
[2022-02-24] MEDS: FERROUS SULFATE 325 MG TAB PO SCH (08:53)
[2022-02-24] MEDS: amLODIPine BESYLATE 5 MG TAB PO SCH (08:54)
[2022-02-24] MEDS: HEPARIN SOD 5,000 UNIT/0.5 ML VIAL SQ SCH ×2 (08:55→21:44)
[2022-02-24] MEDS: UMECLIDINIUM/VILANTEROL 62.5/25MCG 7 PUFFS/INHALER INH SCH (08:57)
[2022-02-24 09:27] LABS: Abnormal Protein Band 1 DNR mg/24 h (NONE DETECTED); Abnormal Protein Band 2 DNR mg/24 h (NONE DETECTED); Abnormal Protein Band 3 DNR mg/24 h (NONE DETECTED); Creatinine, 24 hr Urine 0.81 g/24 h (0.50-2.15); Protein, Urine 24 Hour 3162 mg/24 h (<150); Ur Protein/Creatinine Rat mg/g 3884 mg/g creat (< OR = 114); Urine Protein/Creatinine Ratio 3.884 (< OR = 0.114)
[2022-02-24] MEDS: LORazepam 0.5 MG TAB PO PRN (09:38)
[2022-02-24] MEDS: IRON SUCROSE 200 MG in 0.9 % SODIUM CHLORIDE 100 ML IV SCH (09:43)
--- NOTE | 2022-02-24 10:45 | Nephrology Progress Note ---
Date of Service February 24, 2022 Assessment & Plan (1) CKD (chronic kidney disease), stage IV: (2) Acute kidney injury: (3) Hypertensive emergency: (4) Anemia: Plan: 81-year-old male with stage IV CKD, b/l cr 2.0-2.3, poorly controlled hypertension, TEENA, diastolic CHF, cAD s/p CABG in 2014 admitted to the hospital with hypertensive emergency and flash pulmonary edema, after presented to hospital with worsening shortness of breath. On admission he was found to have AK I with creatinine 3.0 which has been staying relatively stable without any further improvement. Blood pressure continues to be elevated with multiple medication adjustment, off of losartan hydrochlorothiazide since admission. Volume status acceptable, blood pressure improved. renal function continues to worsen slowly, however electrolyte acceptable. Renal artery Doppler was inconclusive, there was no hemodynamically significant right renal artery stenosis however exam was suboptimal because of bowel gas and patient refused left renal artery to be evaluated. -- start on normal saline at 80 mL/hour --continue on amlodipine 10 mg p.o. daily, although medical record showed history of questionable allergy however unclear what kind of allergy, will monitor for any allergic reaction, if patient tolerates without any adverse effect, will continue --continue on on spironolactone 50 mg p.o. daily and increase dose as needed, monitor serum potassium. --Monitor renal function electrolyte daily monitor intake and output. --on Venofer, discontinue oral iron. Will follow Admission and Anticipated Discharge Date Admission Date: February 17, 2022 Nafisa Chang was seen and examined in his room this morning. He is overall feeling well except bothered by constipation and no bowel movement for last few days. Urine output decent. Blood pressure improved, tolerating amlodipine without any adverse effect. Renal function continues to worsen slowly, creatinine up to 3.7 with BUN 85, electrolyte acceptable. Total net negative almost 5 L since admission. Review of Systems Review of Systems: Detailed review of system was otherwise unremarkable. Physical Exam Constitutional: WD/WN, vitals as above no acute distress Respiratory: no respiratory distress Auscultation: lungs clear to auscultation bilaterally Cardiovascular: Rate/Rhythm: regular rate and regular rhythm Extremities: no edema Skin: no rashes Neurologic: no focal motor deficits and not confused Psychiatric: Orientation: alert and oriented x 3 Results & Data ([facility]) Vital Signs (Past 12 Hours) Vital Signs Temp Pulse Resp BP BP Pulse Ox 02/24/22 07:00 36.5 C 76 18 152/68 H 96 02/23/22 22:51 36.4 C L 57 L 20 121/69 93 PG Care Time/CCT Total # of Minutes Spent Total Time Spent with Patient: Total time spent is greater than 50% in coordination of care (as documented) at patient's floor/unit and/or counseling patient: Coding Level of Care Code 13826 Subseq Hosp Care Lvl 3 Diagnoses CKD (chronic kidney disease), stage IV N18.4 Acute kidney injury N17.9 Hypertensive emergency I16.1 Anemia D64.9
[2022-02-24] MEDS: SODIUM CHLORIDE 0.9% 1000ML 1,000 ML IV SCH ×2 (11:12→23:31)
[2022-02-24] MEDS ORDERED: bisacodyL 10 MG SUPP PR STA (12:19)
--- NOTE | 2022-02-24 12:21 | Hospitalist Progress Note ---
Date of Service February 24, 2022 Assessment & Plan (1) Acute on chronic respiratory failure with hypoxia and hypercapnia: Plan: After 12/2021 hospital stay patient was placed on 2 L NC O2 presumably 2nd to COPD. I cannot cannot rule out OHS or pulmonary HTN contributing to chronic O2 requirement. cannot rule out pulmonary HT Presented this admission with severe distress requiring BIPAP in the ER, nitro drip for HTN emergency, and IV lasix for acute/chronic diastolic CHF. Nearly needed intubation but able to get through the early part of his stay with the BIPAP. Admitted to ICU hospital day #1. Was diuresed until yesterday at which point his creatinine began to rise and lasix was stopped. Today his breathing is comfortable, but he is still requiring continuous NC O2, and lung exam remains abnormal. CXR today with ongoing effusions, worse on left. Uncertain if thoracentesis on the left would provide benefits>risks. Would need to discuss with pulmonary. (2) Acute on chronic diastolic CHF (congestive heart failure): Plan: net neg 3.5 to 4 liters since hospital admission. however, creatinine has risen from 2.4 on 02/17/22 to 3.6 this am with diruesis. thus, IV diuretics stopped in the last 24 hours. cxr with ongoing effusions. unfortunately will need to hold IV diuresis and allow creatinine to improve, then attempt diuresis once again - and/or consider thoracentesis on left. continue complex regimen of meds for his HTN. cont coreg, imdur, etc. (3) COPD (chronic obstructive pulmonary disease) with emphysema: Plan: continue usual inhalers. this is the likely reason for his chronic O2 requirement. no exacerbation at this time. (4) Elevated troponin: Plan: myocardial demand ischemia in the setting of #1, #2, and HTN emergency. no true ACS. (5) Obstructive sleep apnea: Plan: I do not believe he uses CPAP or BIPAP regularly for this. (6) Acute kidney injury: Plan: continues to worsen in the face of recent diuresis. there is concern for myeloma contributing to his CKD. appropriate work-up has been sent by oncology. hold IV diuresis. BMP again in am. would be in favor of holding the aldactone as well but defer that to nephrology. losartan/HCTZ have been stopped. (7) CKD (chronic kidney disease), stage IV: Plan: baseline CrCl 20s baseline creatinine low 2's now with superimposed CARMELO -- Cr 3.6 today (8) Hypertensive emergency: Plan: resolved required nitro drip in the first 24 hours of his stay and ICU admission now on complex regimen of meds including imdur, aldactone, hydralazine, coreg, and amlodipine attempts at renal artery dopplers to r/o ARELY were not successful (9) CAD, multiple vessel: Plan: h/o CABG remains on asa, BB, imdur, aldactone lipitor on hold - uncertain reason - recent CPK wnl recent ast/alt wnl (10) Hyperlipidemia: Plan: statin on hold as above (11) History of prostate cancer: Plan: PSA fall 2020 was <0.5 (12) Constipation: Plan: KUB x-ray today with distal stool given his complaints will try dulcolax suppos x 1 and reassess tomorrow (13) Encephalopathy acute: Plan: 2nd to ativan usage? 2nd to acute renal failure? other? I am uncertain what the pt's baseline is will need to inquire with family, caregivers, etc Plan: DVT proph - heparin 5000 BID Admission and Anticipated Discharge Date Admission Date: February 17, 2022 Subjective patient c/o constipation, stating "I'm not gonna eat until I have a bowel movement" he was confused throughout the visit c/o bloating c/o anxiety also c/o mild dyspnea Review of Systems Review of Systems: due to his confusion unable to elicit for full ROS Physical Exam Physical Exam: gen - confused, anxious, no distress neck - no obvious JVD mouth - MMM heart - RRR, s1 s2, 2/6 systolic murmur LSB lungs - decreased BS bases, L>R; occasional crackle; no wheeze; no distress abd - mildly distended, NT, BS+, no HSM ext - no edema, pulses 2+ b/l psych - oriented to person/place but not time; anxious Results & Data Results & Data ([facility]) Vital Signs (Past 12 Hours) Vital Signs Temp Pulse Resp BP Pulse Ox 02/24/22 07:00 36.5 C 76 18 152/68 H 96 Laboratory Results Laboratory Results - last 24 hr 02/19/22 02/19/22 02/24/22 04:48 18:30 07:30 Sodium 138 Potassium 4.8 Chloride 102 Carbon Dioxide 27 Anion Gap 9 BUN 85 H Creatinine 3.66 H D Est Cr Clr Drug Dosing 16.7 Est GFR ( Amer) 16.8 Est GFR (Non-Af Amer) 14.5 BUN/Creatinine Ratio 23.2 H Glucose 98 Calcium 8.8 Phosphorus 5.2 H Albumin 3.1 L Ur Creatinine 24 Hour 0.81 Ur Total Protein 24 Hr 3162 H Protein/Creat Ratio 24h 3.884 H Urine Albumin (%) 60 U Uvvsl-0-Waoycrrs (%) 6 U Bxqcn-0-Wlmpnbmj (%) 7 U Beta Globulin (%) 13 U Gamma Globulin (%) 14 U Abnormal Prot Band 1 DNR U Abnormal Prot Band 2 DNR U Abnormal Prot Band 3 DNR Urine PEP Interpret SEE NOTE Serum Immunofixation SEE NOTE Urine Immunofixation SEE NOTE PG Care Time/CCT Total # of Minutes Spent Total Time Spent with Patient: Total time spent is greater than 50% in coordination of care (as documented) at patient's floor/unit and/or counseling patient: Coding Level of Care Code 21183 Subseq Hosp Care Lvl 3 Diagnoses Acute on chronic diastolic CHF (congestive heart failure) I50.33 COPD (chronic obstructive pulmonary disease) with emphysema J43.9 Elevated troponin R77.8 Obstructive sleep apnea G47.33 Hyperlipidemia E78.5 Acute on chronic respiratory failure with hypoxia and hypercapnia J96.21; J96.22 Acute kidney injury N17.9 CKD (chronic kidney disease), stage IV N18.4 Hypertensive emergency I16.1 CAD, multiple vessel I25.10 History of prostate cancer Z85.46 Constipation K59.00 Encephalopathy acute G93.40
--- NOTE | 2022-02-24 13:36 | XRay Report ---
KUB CLINICAL HISTORY: Bloating. Constipation. FINDINGS: 2 AP supine abdominal radiographs are correlated with abdominal CT dated 02/17/2022. A recta l tube is in place. No bowel obstruction is identified. Mild fecal retention is noted in the rectosig moid. No evidence of intraperitoneal free air is seen on these supine images. Numerous surgical clips are seen throughout the pelvis. There are no abnormal abdominal calcifications. The skeletal structu res are osteopenic and appear intact. There is advanced lumbosacral spondylosis. Bilateral hip arthro plasties are in place. IMPRESSION: Nonobstructed abdominal bowel gas pattern. See above. Electronically signed by: Kana Mathias M.D. 02/24/2022 1:34 PM
--- NOTE | 2022-02-24 13:47 | XRay Report ---
XR chest 1V portable CLINICAL HISTORY: b/l effusions, interval change COMPARISON STUDY: Chest radiograph and chest CT February 17, 2022. FINDINGS: Median sternotomy wires are noted as well as mediastinal surgical clips. Cardiomegaly is un changed. Moderate left and [id number] right pleural effusions with associated bibasilar opacit ies are again noted. There is persistent pulmonary edema. IMPRESSION: Persistent pulmonary edema and moderate left and bujvv-mr-khtlcsgs right pleural effusio ns. Minimal change in appearance of the chest. ACT 112: Negative or not required by law. Electronically signed by: Goip Huntley M.D. 02/24/2022 1:46 PM
[2022-02-24 14:24] LABS: Kappa Lambda Ratio 1.67 (1.29-2.55)
[2022-02-24] MEDS: MELATONIN 3 MG TAB PO SCH (21:43)
[2022-02-25 08:36] LABS: Albumin Level 3.4 gm/dl (3.4-5.0); BUN Creatinine Ratio 23.7 (10-20); Calcium 8.9 mg/dl (8.5-10.1); Creatinine Clr Calc Pharmacy 16.7 ml/min; Est GFR (Non-African American) 14.7 ml/min; Phosphorus 5.1 mg/dl (2.5-4.9); Potassium 4.9 mmol/L (3.5-5.1)
[2022-02-25] MEDS: IRON SUCROSE 200 MG in 0.9 % SODIUM CHLORIDE 100 ML IV SCH (08:48)
[2022-02-25] MEDS: ISOSORBIDE MONO EXTENDED REL 30 MG TABCR PO SCH (08:49)
[2022-02-25] MEDS: SPIRONOLACTONE 25 MG TAB PO SCH (08:49)
[2022-02-25] MEDS: hydrALAZINE TAB 50 MG TAB PO SCH ×3 (08:49→20:44)
[2022-02-25] MEDS: carvediloL 25 MG TAB PO SCH ×2 (08:49→20:43)
[2022-02-25] MEDS: amLODIPine BESYLATE 5 MG TAB PO SCH (08:49)
[2022-02-25] MEDS: ASPIRIN 81 MG ECTAB PO SCH (08:49)
[2022-02-25] MEDS: CARBIDOPA/LEVODOPA 25/100MG TAB PO SCH ×2 (08:49→20:44)
[2022-02-25] MEDS: SENNA 8.6 MG TAB PO SCH (08:50)
[2022-02-25] MEDS: UMECLIDINIUM/VILANTEROL 62.5/25MCG 7 PUFFS/INHALER INH SCH (08:50)
[2022-02-25] MEDS: HEPARIN SOD 5,000 UNIT/0.5 ML VIAL SQ SCH (08:50)
[2022-02-25] MEDS: DOCUSATE SODIUM 100 MG CAP PO SCH ×2 (08:50→20:44)
[2022-02-25] MEDS: POLYETHYLENE (MIRALAX) 17 GM PACK PO SCH (08:50)
--- NOTE | 2022-02-25 10:06 | Nephrology Progress Note ---
Date of Service February 25, 2022 Assessment & Plan (1) CKD (chronic kidney disease), stage IV: (2) Acute kidney injury: (3) Hypertensive emergency: (4) Anemia: Plan: 81-year-old male with stage IV CKD, b/l cr 2.0-2.3, poorly controlled hypertension, TEENA, diastolic CHF, cAD s/p CABG in 2014 admitted to the hospital with hypertensive emergency and flash pulmonary edema, after presented to hospital with worsening shortness of breath. On admission he was found to have AK I with creatinine 3.0 which has been staying relatively stable without any further improvement. Blood pressure continues to be elevated with multiple medication adjustment, off of losartan hydrochlorothiazide since admission. Volume status acceptable, blood pressure variable. Renal function stable, electrolyte acceptable. --DC IV fluid --continue on amlodipine 10 mg p.o. daily, patient tolerating well without any adverse effect. --continue on on spironolactone 50 mg p.o. daily and increase dose as needed, monitor serum potassium. --Monitor renal function electrolyte daily monitor intake and output. --on Venofer, discontinue oral iron. Will follow Admission and Anticipated Discharge Date Admission Date: February 17, 2022 Nafisa Chang was seen and examined in his room this morning. He is overall feeling well except some anxiety. Urine output decent. Blood pressure variable, tolerating amlodipine without any adverse effect. Renal function relatively stable, cr around 3.6 to 3.7, electrolyte acceptable. Decent UO, net +300 ml. Review of Systems Review of Systems: Detailed review of system was otherwise unremarkable. Physical Exam Constitutional: WD/WN, vitals as above no acute distress Respiratory: no respiratory distress Auscultation: lungs clear to auscultation bilaterally Cardiovascular: Rate/Rhythm: regular rate and regular rhythm Extremities: no edema Skin: no rashes Neurologic: no focal motor deficits and not confused Psychiatric: Orientation: alert and oriented x 3 Results & Data ([facility]) Vital Signs (Past 12 Hours) Vital Signs Temp Pulse Resp BP Pulse Ox 02/25/22 07:40 36.4 C L 78 16 162/75 H 93 02/24/22 23:00 36.9 C 66 18 109/56 L 92 PG Care Time/CCT Total # of Minutes Spent Total Time Spent with Patient: Total time spent is greater than 50% in coordination of care (as documented) at patient's floor/unit and/or counseling patient: Coding Level of Care Code 11952 Subseq Hosp Care Lvl 3 Diagnoses CKD (chronic kidney disease), stage IV N18.4 Acute kidney injury N17.9 Hypertensive emergency I16.1 Anemia D64.9
[2022-02-25] MEDS: LORazepam 0.5 MG TAB PO PRN (16:00)
[2022-02-25] MEDS ORDERED: ALBUT/IPRATROP 3MG/0.5MG NEB 3 ML VIAL NEB STA (17:49)
--- NOTE | 2022-02-25 17:52 | Hospitalist Progress Note ---
Date of Service February 25, 2022 Assessment & Plan (1) Acute on chronic respiratory failure with hypoxia and hypercapnia: Plan: Presented this admission with severe distress requiring BIPAP in the ER, nitro drip for HTN emergency, and IV lasix for acute/chronic diastolic CHF. Nearly needed intubation but able to get through the early part of his stay with the BIPAP. Admitted to ICU hospital day #1. Was diuresed until 2 days ago at which point his creatinine began to rise and lasix was stopped. Unfortunately he has had a large change in his status today. His acute respiratory failure is much worse today as noted in the subjective portion of the note. He is severely volume overloaded clinically/radiographically and may have had a NSTEMI given his troponin, EKG changes, and clinical symptoms. Plan - move to PCU, BIPAP, bronchodilators, serial troponins, bumex 2mg IV x 1 now, and heparin infusion. Could consider repeat limited echo in am to recheck wall motion. CRP minimally elevated and procal is negative - I am not suspicious about an infectious component to today's events. (2) Acute on chronic diastolic CHF (congestive heart failure): Plan: net neg 3.5 to 4 liters since hospital admission. however, creatinine had risen from 2.4 on 02/17/22 to 3.6 with prior diuresis. IV diuretics stopped due to the CARMELO, but clearly his volume status is much worse today as noted above. bumex 2mg IV x 1 now. BIPAP. other plans as above. (3) NSTEMI (non-ST elevated myocardial infarction): Plan: HS trop is markedly elevated at 1800 this afternoon. this, coupled with his ST depressions anterolaterally and his known CAD with prior CABG in 2004, are all concerning for NSTEMI in the setting of #1, #2. plan serial trops, heparin drip low-dose, cont cardiac meds, diurese. consider repeat limited echo. move patient to PCU. ischemia could certainly be driving some of his volume overload issues. his CABG was in 2004 thus he could easily have significant coronary lesions at this point in time. VERY poor candidate for anything aggressive in light of poor renal function, fragile status, comorbidities, etc. strongly consider cardiology consult. ekg in am. (4) COPD (chronic obstructive pulmonary disease) with emphysema: Plan: duoneb x 2 now. cont usual inhalers. BIPAP. I do not think that COPD exacerbation is the primary reason for his decompensation today - likely all cardiac/CHF. (5) Elevated troponin: Plan: see #3 above (6) Obstructive sleep apnea: Plan: I do not believe he uses CPAP or BIPAP regularly for this. BIPAP at this time, however, for acute resp failure today. (7) Acute kidney injury: Plan: he received an IV fluid challenge overnight due to his rise in creatinine. unfortunately this did not improve his renal function and may have made volume status worse. BMP in am. appreciate nephrology assistance. (8) CKD (chronic kidney disease), stage IV: Plan: baseline CrCl 20s baseline creatinine low 2's now with superimposed CARMELO -- Cr 3.6 once again today (9) Hypertensive emergency: Plan: resolved required nitro drip in the first 24 hours of his stay and ICU admission now on complex regimen of meds including imdur, aldactone, hydralazine, coreg, and amlodipine attempts at renal artery dopplers to r/o ARELY were not successful (10) CAD, multiple vessel: Plan: h/o CABG remains on asa, BB, imdur, aldactone lipitor on hold - uncertain reason - recent CPK wnl recent ast/alt wnl resume statin hold aldactone in light of CARMELO see #3 above (11) Hyperlipidemia: Plan: resume statin (12) History of prostate cancer: Plan: PSA fall 2020 was <0.5 (13) Constipation: Plan: resolved numerous BMs overnight (14) Encephalopathy acute: Plan: 2nd to ativan usage? 2nd to acute renal failure? other? son-in-law by phone today stated that he has "gone down hill" since entering [facility] in 10/2021 perhaps there is a component of depression contributing to mental status as well Plan: DVT proph - heparin infusion, low-dose spoke with Mr Benito's son-in-law, Shola, who is an RN by training updated him regarding events of the day today along with my concerns of refractory volume overload, worsening respiratory status, ?NSTEMI (very high trop, abnl EKG with significant lateral ST changes, remote CABG, etc), cardiorenal syndrome, etc. discussed Tx to PCU from med/surg discussed care plan for the evening discussed palliative care consultation tomorrow in light of numerous comorbidities, worsening status, etc he & his (pt's daughter) will speak with Mr Benito tomorrow the palliative care consult will be very helpful to refine goals of care code status needs to be addressed plan of care d/w night resident physician in detail critical care time 70 minutes including management of acute/chronic resp failure, probable NSTEMI, discussion w/ family, interpretation of studies, etc. Admission and Anticipated Discharge Date Admission Date: February 17, 2022 Subjective mid-afternoon during my assessment the patient looked unwell as soon as I arrived he said "I can't sleep" - "I just have to sleep" he admitted to feeling very down, stating "I think I just want to " when asked how long he felt that way he said "since I got here" in the midst of the above he was breathless, couldn't complete his sentences easily, and was using accessory muscles and having retractions earlier in the day he had been anxious and prn ativan was given by mouth (he does take this outside the hospital) he was coughing, and he did admit he was very short of breath denied chest pain but complained of vague abdominal discomfort multiple bowel movements (4) overnight per staff following dulcolax ; he had c/o constipation yesterday immediately seeing his status I ordered BIPAP, duoneb x 2, and bumex 2mg IV x 1 stat CXR - my reading - worsening pulmonary edema & effusions EKG obtained - my reading - NSR, V3-V6 ST depressions, I/AVL ST depressions RT arrived - BIPAP placed - increased work of breathing improved very quickly with BIPAP Review of Systems Review of Systems: gen - fatigue, weak, poor appetite per staff cv - no chest pain pulm - cough, dyspnea, orthopnea GI - no vomiting psych - depressed Physical Exam Physical Exam: gen - confused, anxious/depressed, significant respiratory distress with tachypnea/retractions/accessory muscle use neck - JVD present mouth - MMM heart - RRR, s1 s2, 2/6 systolic murmur LSB lungs - decreased BS bases, L>R; crackles b/l; end-exp wheeze/rhonchi; accessory muscle use/tachypnea/retractions abd - mildly distended but improved from yesterday, NT, BS+, no HSM ext - no edema, pulses 2+ b/l psych - oriented to person/place only, depressed/tearful Results & Data Results & Data ([facility]) Vital Signs (Past 12 Hours) Vital Signs Temp Pulse Resp BP Pulse Ox 02/25/22 15:10 36.4 C L 70 16 134/53 L 91 02/25/22 07:40 36.4 C L 78 16 162/75 H 93 Laboratory Results Laboratory Results - last 24 hr 02/25/22 02/25/22 02/25/22 07:54 18:17 18:17 WBC 12.04 H RBC 3.28 L Hgb 10.1 L Hct 30.7 L MCV 93.6 MCH 30.8 MCHC 32.9 RDW Std Deviation 47.0 H RDW Coeff of Natalie 13.8 Plt Count 328 MPV 11.7 H Immature Gran % (Auto) 0.4 Neut % (Auto) 79.5 Lymph % (Auto) 8.4 [place] % (Auto) 9.6 Eos % (Auto) 1.9 Baso % (Auto) 0.2 Neut # (Auto) 9.56 H Lymph # (Auto) 1.01 L [place] # (Auto) 1.16 H Eos # (Auto) 0.23 Baso # (Auto) 0.03 Immature Gran # (Auto) 0.05 H VBG pH 7.39 VBG pCO2 43 VBG pO2 60 VBG HCO3 25 VBG O2 Saturation 89.2 VBG Base Excess 0.1 Barometric Pressure 734.6 Sodium 137 Potassium 4.9 Chloride 103 Carbon Dioxide 25 Anion Gap 9 BUN 86 H Creatinine 3.63 H Est Cr Clr Drug Dosing 16.7 Est GFR ( Amer) 17.0 Est GFR (Non-Af Amer) 14.7 BUN/Creatinine Ratio 23.7 H Glucose 110 H Calcium 8.9 Phosphorus 5.1 H Troponin I High Sens C-Reactive Protein Albumin 3.4 Procalcitonin 02/25/22 02/25/22 18:17 18:17 WBC RBC Hgb Hct MCV MCH MCHC RDW Std Deviation RDW Coeff of Natalie Plt Count MPV Immature Gran % (Auto) Neut % (Auto) Lymph % (Auto) [place] % (Auto) Eos % (Auto) Baso % (Auto) Neut # (Auto) Lymph # (Auto) [place] # (Auto) Eos # (Auto) Baso # (Auto) Immature Gran # (Auto) VBG pH VBG pCO2 VBG pO2 VBG HCO3 VBG O2 Saturation VBG Base Excess Barometric Pressure Sodium Potassium Chloride Carbon Dioxide Anion Gap BUN Creatinine Est Cr Clr Drug Dosing Est GFR ( Amer) Est GFR (Non-Af Amer) BUN/Creatinine Ratio Glucose Calcium Phosphorus Troponin I High Sens 1896.7 H* D C-Reactive Protein 2.30 H Albumin Procalcitonin Pending PG Care Time/CCT Total # of Minutes Spent Total Time Spent with Patient: Total time spent is greater than 50% in coordination of care (as documented) at patient's floor/unit and/or counseling patient: Critical Care Time: Yes Total Critical Care Time: 70 Coding Level of Care Code None Diagnoses Acute on chronic respiratory failure with hypoxia and hypercapnia J96.21; J96.22 Acute on chronic diastolic CHF (congestive heart failure) I50.33 COPD (chronic obstructive pulmonary disease) with emphysema J43.9 Elevated troponin R77.8 Obstructive sleep apnea G47.33 Acute kidney injury N17.9 CKD (chronic kidney disease), stage IV N18.4 Hypertensive emergency I16.1 CAD, multiple vessel I25.10 Hyperlipidemia E78.5 History of prostate cancer Z85.46 Constipation K59.00 Encephalopathy acute G93.40 NSTEMI (non-ST elevated myocardial infarction) I21.4 Additional Codes Critical Care Time - Critical Care Time: Yes ([id number])
[2022-02-25] MEDS ORDERED: BUMETANIDE 2 MG in SYRINGE 0 ML IV ONE (18:00)
--- NOTE | 2022-02-25 18:24 | XRay Report ---
XR chest 1V portable CLINICAL HISTORY: resp distress, CHF/effusions COMPARISON STUDY: Chest CT February 17, 2022. Chest radiograph February 24, 2022. FINDINGS: There is no pneumothorax. Moderate left and [id number] right pleural effusions have slightly increased. Pulmonary edema has progressed. There are median sternotomy wires and mediastinal surgical clips. Cardiomegaly is again noted. IMPRESSION: Progression of pulmonary edema, bilateral pleural effusions, left larger than right and associated airspace opacities. ACT 112: Negative or not required by law. Electronically signed by: Gopi Huntley M.D. 02/25/2022 6:23 PM
[2022-02-25 18:41] LABS: Basophils # (auto) 0.03 K/uL (0-0.2); Basophils % (auto) 0.2 %; Eosinophils # (auto) 0.23 K/uL (0-0.5); Eosinophils % (auto) 1.9 %; Hematocrit (blood only) 30.7 % (42-52); Hemoglobin 10.1 g/dL (14.0-18.0); Immature Granulocytes # (auto) 0.05 K/uL (0.00-0.02); Immature Granulocytes % (auto) 0.4 %; Lymphocytes # (auto) 1.01 K/uL (1.2-3.4); Lymphocytes % (auto) 8.4 %; Mean Corpuscular Hemoglobin 30.8 pg (25-34); Mean Corpuscular Hgb Conc 32.9 g/dL (32-36); Mean Corpuscular Volume 93.6 fL (80-100); Mean Platelet Volume 11.7 fL (7.4-10.4); Monocytes # (auto) 1.16 K/uL (0.11-0.59); Monocytes % (auto) 9.6 %; Neutrophils # (auto) 9.56 K/uL (1.4-6.5); Neutrophils % (auto) 79.5 %; Platelet Count 328 K/uL (130-400); RDW Coefficient of Variation 13.8 % (11.5-14.5); Red Blood Count 3.28 M/uL (4.7-6.1); White Blood Count 12.04 K/uL (4.8-10.8)
[2022-02-25 18:44] LABS: Base Excess VBG 0.1 mEq/L; Oxygen Saturation VBG 89.2 %; pH VBG 7.39 (7.36-7.41)
[2022-02-25 18:48] LABS: C Reactive Protein 2.3 mg/dl (0-0.5)
[2022-02-25 19:05] LABS: Troponin I High Sensitivity 1896.7 pg/ml (0-20)
[2022-02-25] MEDS ORDERED: Heparin IV Adult Wt-Based Low-Dose *NO* Bolus Protocol IV ONE (19:27)
[2022-02-25] MEDS: MELATONIN 3 MG TAB PO SCH (20:43)
[2022-02-25] MEDS: HEPARIN SODIUM/DEXTROSE 25,000 UNITS/500 ML BAG IV SCH (21:57)
[2022-02-25 22:08] LABS: Partial Thromboplastin Ratio 1.2
[2022-02-25] MEDS ORDERED: HEPARIN SOD (PORCINE) 1000 UNIT/ML IV ONE (22:36)
[2022-02-26 05:40] LABS: Partial Thromboplastin Ratio 2.4
[2022-02-26 05:46] LABS: Partial Thromboplastin Time 64.7 Seconds (21.0-31.0)
[2022-02-26 06:36] LABS: Hematocrit (blood only) 29.2 % (42-52); Hemoglobin 9.7 g/dL (14.0-18.0); Mean Corpuscular Hemoglobin 31.1 pg (25-34); Mean Corpuscular Hgb Conc 33.2 g/dL (32-36); Mean Corpuscular Volume 93.6 fL (80-100); Mean Platelet Volume 11.9 fL (7.4-10.4); Platelet Count 284 K/uL (130-400); RDW Coefficient of Variation 13.8 % (11.5-14.5); RDW Standard Deviation 46.6 fL (36.4-46.3); Red Blood Count 3.12 M/uL (4.7-6.1); White Blood Count 9.82 K/uL (4.8-10.8)
[2022-02-26 07:27] LABS: BUN Creatinine Ratio 23.2 (10-20); Calcium 8.9 mg/dl (8.5-10.1); Creatinine Clr Calc Pharmacy 16.7 ml/min; Est GFR (African American) 16.8 ml/min; Est GFR (Non-African American) 14.5 ml/min; Potassium 4.8 mmol/L (3.5-5.1)
[2022-02-26 08:11] LABS: Troponin I High Sensitivity 2126.6 pg/ml (0-20)
[2022-02-26] MEDS ORDERED: BUMETANIDE 3 MG in SYRINGE 0 ML IV ONE ×2 (08:30→17:00)
[2022-02-26] MEDS: CARBIDOPA/LEVODOPA 25/100MG TAB PO SCH (09:03)
[2022-02-26] MEDS: hydrALAZINE TAB 50 MG TAB PO SCH ×2 (09:03→14:29)
[2022-02-26] MEDS: carvediloL 25 MG TAB PO SCH (09:03)
[2022-02-26] MEDS: SENNA 8.6 MG TAB PO SCH (09:04)
[2022-02-26] MEDS: UMECLIDINIUM/VILANTEROL 62.5/25MCG 7 PUFFS/INHALER INH SCH (09:04)
[2022-02-26] MEDS: POLYETHYLENE (MIRALAX) 17 GM PACK PO SCH (09:04)
[2022-02-26] MEDS: amLODIPine BESYLATE 5 MG TAB PO SCH (09:04)
[2022-02-26] MEDS: ISOSORBIDE MONO EXTENDED REL 30 MG TABCR PO SCH (09:04)
[2022-02-26] MEDS: ASPIRIN 81 MG ECTAB PO SCH (09:05)
[2022-02-26] MEDS: IRON SUCROSE 200 MG in 0.9 % SODIUM CHLORIDE 100 ML IV SCH (09:10)
[2022-02-26] MEDS: DOCUSATE SODIUM 100 MG CAP PO SCH (09:11)
[2022-02-26] MEDS: ATORVASTATIN 40 MG TAB PO SCH (10:04)
--- NOTE | 2022-02-26 11:52 | Palliative Care Consultation ---
Date of Consultation February 26, 2022 Assessment & Plan (1) Palliative care encounter: This patient is an 81-year-old male who presented to the [facility] that was significantly hypoxic. He had a recent hospitalization in December 2021 for a CHF exacerbation. Additional PMH includes: CABG 2004, CKD stage IV, CHF, HTN, anemia of chronic disease, prostate cancer, and HLD. The patient has been treated this admission for hypertensive urgency and was placed on a Nitro gtt. Ultimately, he ended up going into kidney failure with recommended dialysis; however, he has discussed with Nephrology and he does not want to pursue hemodialysis. The patient has declined over the past 24 hours with an NSTEMI and was upgraded to PCU level of care. He was placed on Bipap. Palliative medicine was consulted previously; however, the patient was going to be discharged to a SNF; however, has shown decline. Patient a full code on consult. palliative medicine to discuss goals of care with the patient. I met with the patient at his bedside. He was lying relatively flat and on Bipap, FiO2 28%. He was able to have a conversation with me through the Bipap mask. He said that if he is not able to enjoy listening to 4Cable TV music and watch 'Gun Smoke', that he would no longer consider that a meaningful recovery. We discussed his overall prolonged hospital stay and his overall renal and cardiac decline. We discussed overall code status and he indicated that he would not want to be placed on a breathing machine nor have CPR in the event of cardiac or respiratory arrest. I was able to discuss the above with his daughter, Ana Maria at [phone] and she indicated that they have had a conversation before that is consistent with DNR/DNI. We did discuss that should the patient decline further, that a transition to comfort measures would be discussed and supported. Update: Dr. Walker contacted me that he went to see the patient and the patients daughter was also visiting. He said that the patient stated ' just let me go, doc. I am ready'. He apparently has family traveling from [place] that he would like to get to see. For now, we will make a transition to comfort and have appropriate air hunger and agitation medications available. Ordered Dilaudid 0.3 mg Q2 PRN for air hunger. Due to the patients worsening creatinine function (Creatinine 3.67), would like to avoid opioid toxicity. Additionally ordered Ativan 0.5 mg Q3 PRN for agitation Additionally ordered Atropine 4 Gtts SL Q3 PRN terminal secretions. Palliative will follow for symptom management. (2) CKD (chronic kidney disease), stage IV: (3) NSTEMI (non-ST elevated myocardial infarction): (4) Hypoxia: History of Present Illness Reason for Consultation: goals of care Requesting Physician: Dr. Holman Attending Physician: Brown Walker History of Present Illness This patient is an 81-year-old male who presented to the [facility] that was significantly hypoxic. He had a recent hospitalization in December 2021 for a CHF exacerbation. Additional PMH includes: CABG 2004, CKD stage IV, CHF, HTN, anemia of chronic disease, prostate cancer, and HLD. The patient has been treated this admission for hypertensive urgency and was placed on a Nitro gtt. Ultimately, he ended up going into kidney failure with recommended dialysis; however, he has discussed with Nephrology and he does not want to pursue hemodialysis. The patient has declined over the past 24 hours with an NSTEMI and was upgraded to PCU level of care. He was placed on Bipap. Palliative medicine was consulted previously; however, the patient was going to be discharged to a SNF; however, has shown decline. palliative medicine to discuss goals of care with the patient. Please see A/P for further details. Thanks for involving palliative medicine with this individual. Allergies Allergy/AdvReac Type Severity Reaction Status Date / Time amlodipine Allergy Unknown Unverified 02/17/22 07:51 aspirin Allergy Unknown Unverified 02/17/22 12:52 atorvastatin Allergy Unknown Unverified 02/17/22 12:52 Home Medications Medication Instructions Recorded Confirmed Type nitroglycerin 0.4 mg sublingual 0.4 mg SL .COMPLEX #25 tab 04/14/19 02/17/22 Rx tablet ferrous sulfate 325 mg (65 mg 325 mg PO BID tab 05/31/19 02/17/22 History iron) tablet albuterol sulfate 90 mcg/actuation 1 inh INHALATION Q4H PRN 12/10/21 02/17/22 History breath activated powder inhaler,sensor fesoterodine 4 mg tablet,extended 4 mg PO QAM 12/10/21 02/17/22 History release 24 hr (Toviaz) umeclidinium 62.5 mcg-vilanterol 1 inh INHALATION QAM 12/10/21 02/17/22 History 25 mcg/actuation powdr for inhalation (Anoro Ellipta) acetaminophen 650 mg 1,300 mg PO Q8H PRN 02/17/22 02/17/22 History tablet,extended release (Arthritis Pain Relief (acetaminophen) ER) aspirin 81 mg tablet,delayed 81 mg PO QAM 02/17/22 02/17/22 History release (Enteric Coated Aspirin) atorvastatin 80 mg tablet 80 mg PO QAM 02/17/22 02/17/22 History carvedilol 6.25 mg tablet 6.25 mg PO BID 02/17/22 02/17/22 History cholecalciferol (vitamin D3) 25 2,000 units PO QAM 02/17/22 02/17/22 History mcg (1,000 unit) capsule lorazepam 0.5 mg tablet 0.5 mg SUBLINGUAL BID PRN 02/17/22 02/17/22 History losartan 100 1 tab PO QAM 02/17/22 02/17/22 History mg-hydrochlorothiazide 25 mg tablet omega 2-uhx-krt-fish oil 1,000 mg 1 cap PO QAM 02/17/22 02/17/22 History (120 mg-180 mg) capsule (Fish Oil) polyethylene glycol 3350 17 17 g PO QAM 02/17/22 02/17/22 History gram/dose oral powder (Miralax) Patient History Medical History (Updated 02/26/22 @ 18:00 by LAURA Mckeon) Abdominal pain Acute kidney injury CAD, multiple vessel CKD (chronic kidney disease), 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 Diastolic CHF History of prostate cancer Hyperlipidemia Hypertension Hypertensive emergency Hypoxia Obstructive sleep apnea Palliative care encounter Stage 3 chronic kidney disease Surgical History History of cataract surgery History of colonoscopy History of prostate surgery Hx of CABG S/P hip replacement Family History Denies family history of Ovarian cancer Prostate cancer Kidney disease Myocardial infarction Breast cancer Colorectal cancer Social History Smoking Status: Former smoker Tobacco Type: Cigars Age Started Using Tobacco: 24; Age Quit Using Tobacco: 49; Second Hand Exposure: No; Hx Alcohol Use: No Hx Substance Use: No Preferred Language: [place] Communication Ability: Effective Visual Impairment: Limited Hearing Ability: Use of Hearing Aid Water Control Station Engineer Required: No Beliefs That Will Affect Care: None marital status: / Current Living Situation: Personal Care Facility current occupational status: 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 Feels Safe at Home: Yes Childhood Exposure to Second-Hand Smoke: Yes caffeine: No during the past year weight has: remained stable Dental Care, Regularly: No Physical Activity Frequency: Does not Exercise Seatbelt Use: always Sunscreen Use: No Assistive Devices: Cane Review of Systems Review of Systems: [place] System Assessment Scale: Pain: 0/3 SOB: 3/3 Tiredness: 2/3 Lack of Appetite: 1/3 Palliative Performance Scale: 30% Physical Exam Constitutional: + acute distress, + ill appearing, + frail appearing and cooperative ENMT: Mouth: + dry oral mucous membranes Respiratory: + labored breathing, + uses accessory muscles and + cough Auscultation: + diminished lung sounds Cardiovascular: Rate/Rhythm: regular rate and regular rhythm Heart Sounds: normal S1, normal S2 and + murmur Extremities: normal capillary refill and + pedal edema Gastrointestinal (Abdomen): Inspection/Auscultation: abdomen normal to inspection Skin: + pallor Psychiatric: Orientation: alert and oriented x 3 Insight: good insight Judgement: good judgement Results & Data ([facility]) Vital Signs (Past 12 Hours) Vital Signs Temp Pulse Pulse Resp BP Pulse Ox 02/26/22 08:04 36.3 C L 75 20 169/77 H 97 02/26/22 04:00 36.4 C L 66 20 126/78 97 02/26/22 02:35 61 22 91 PG Care Time/CCT Total # of Minutes Spent Total Time Spent with Patient: Total time spent is greater than 50% in coordination of care (as documented) at patient's floor/unit and/or counseling patient: 100 minutes Coding Level of Care Code 82612 Inpt Consult Level 3 Diagnoses Palliative care encounter Z51.5 CKD (chronic kidney disease), stage IV N18.4 NSTEMI (non-ST elevated myocardial infarction) I21.4 Hypoxia R09.02 Time Spent (min) 100
--- NOTE | 2022-02-26 12:32 | Nephrology Progress Note ---
Date of Service February 26, 2022 Assessment & Plan (1) CKD (chronic kidney disease), stage IV: Plan: Bernardo has refused dialysis. He has advanced kidney dysfunction and volume overload. Diuretics provided to encourage negative fluid balance. Goals of care reviewed today. (2) Acute kidney injury: Plan: Creatinine stable. Non-oliguric. Electrolytes acceptable. Medications appropriate for kidney dysfunction. (3) Hypertensive emergency: Plan: BP improved. Medical management for NSTEMI. No chest pain at this time. (4) Anemia: Plan: IV venofer provided. Admission and Anticipated Discharge Date Admission Date: February 17, 2022 Subjective Resting comfortably on BIPAP at the time of my assessment. Denies pain currently. Bernardo does not want to escalate care. He has refused dialysis. I discussed the plan of care with Brii Iglesias PA-C today. Goals of care were reviewed. Review of Systems Review of Systems: All systems reviewed & are unremarkable except as noted in HPI & below Physical Exam Constitutional: + ill appearing; no acute distress Eyes: + anicteric sclerae; no corneal abnormality ENMT: BIPAP Neck: normal visual inspection and trachea midline Respiratory: normal respiratory effort Auscultation: + rales and + rhonchi Cardiovascular: Rate/Rhythm: regular rate Heart Sounds: normal S1, normal S2 and + murmur Extremities: + edema Musculoskeletal: Extremities: no cyanosis and no clubbing Skin: normal turgor; no lesions Neurologic: Motor/Sensory: no tremor and no asterixis Psychiatric: Orientation: alert and oriented x 3 Results & Data ([place]) Vital Signs (Past 12 Hours) Vital Signs Temp Pulse Pulse Resp BP Pulse Ox 02/26/22 11:52 36.5 C 63 18 144/54 H 91 02/26/22 08:04 36.3 C L 75 20 169/77 H 97 02/26/22 04:00 36.4 C L 66 20 126/78 97 02/26/22 02:35 61 22 91 Laboratory Results Laboratory Results - last 24 hr 02/25/22 02/25/22 02/25/22 18:17 18:17 18:17 WBC 12.04 H RBC 3.28 L Hgb 10.1 L Hct 30.7 L MCV 93.6 MCH 30.8 MCHC 32.9 RDW Std Deviation 47.0 H RDW Coeff of Natalie 13.8 Plt Count 328 MPV 11.7 H Immature Gran % (Auto) 0.4 Neut % (Auto) 79.5 Lymph % (Auto) 8.4 Bibb % (Auto) 9.6 Eos % (Auto) 1.9 Baso % (Auto) 0.2 Neut # (Auto) 9.56 H Lymph # (Auto) 1.01 L Bibb # (Auto) 1.16 H Eos # (Auto) 0.23 Baso # (Auto) 0.03 Immature Gran # (Auto) 0.05 H APTT PTT Ratio VBG pH 7.39 VBG pCO2 43 VBG pO2 60 VBG HCO3 25 VBG O2 Saturation 89.2 VBG Base Excess 0.1 Barometric Pressure 734.6 Sodium Potassium Chloride Carbon Dioxide Anion Gap BUN Creatinine Est Cr Clr Drug Dosing Est GFR ( Amer) Est GFR (Non-Af Amer) BUN/Creatinine Ratio Glucose Calcium Troponin I High Sens 1896.7 H* D C-Reactive Protein 2.30 H Procalcitonin 02/25/22 02/25/22 02/26/22 18:17 21:49 00:38 WBC RBC Hgb Hct MCV MCH MCHC RDW Std Deviation RDW Coeff of Natalie Plt Count MPV Immature Gran % (Auto) Neut % (Auto) Lymph % (Auto) Bibb % (Auto) Eos % (Auto) Baso % (Auto) Neut # (Auto) Lymph # (Auto) Bibb # (Auto) Eos # (Auto) Baso # (Auto) Immature Gran # (Auto) APTT 33.0 H PTT Ratio 1.2 VBG pH VBG pCO2 VBG pO2 VBG HCO3 VBG O2 Saturation VBG Base Excess Barometric Pressure Sodium Potassium Chloride Carbon Dioxide Anion Gap BUN Creatinine Est Cr Clr Drug Dosing Est GFR ( Amer) Est GFR (Non-Af Amer) BUN/Creatinine Ratio Glucose Calcium Troponin I High Sens 2071.6 H* C-Reactive Protein Procalcitonin 0.20 02/26/22 02/26/22 02/26/22 04:42 05:49 05:49 WBC 9.82 RBC 3.12 L Hgb 9.7 L Hct 29.2 L MCV 93.6 MCH 31.1 MCHC 33.2 RDW Std Deviation 46.6 H RDW Coeff of Natalie 13.8 Plt Count 284 MPV 11.9 H Immature Gran % (Auto) Neut % (Auto) Lymph % (Auto) Bibb % (Auto) Eos % (Auto) Baso % (Auto) Neut # (Auto) Lymph # (Auto) Bibb # (Auto) Eos # (Auto) Baso # (Auto) Immature Gran # (Auto) APTT 64.7 H* PTT Ratio 2.4 VBG pH VBG pCO2 VBG pO2 VBG HCO3 VBG O2 Saturation VBG Base Excess Barometric Pressure Sodium 138 Potassium 4.8 Chloride 103 Carbon Dioxide 25 Anion Gap 10 BUN 85 H Creatinine 3.67 H Est Cr Clr Drug Dosing 16.7 Est GFR ( Amer) 16.8 Est GFR (Non-Af Amer) 14.5 BUN/Creatinine Ratio 23.2 H Glucose 103 H Calcium 8.9 Troponin I High Sens 2126.6 H* C-Reactive Protein Procalcitonin PG Care Time/CCT Total # of Minutes Spent Total Time Spent with Patient: Total time spent is greater than 50% in coordination of care (as documented) at patient's floor/unit and/or counseling patient: Coding Level of Care Code 81727 Subseq Hosp Care Lvl 3 Diagnoses CKD (chronic kidney disease), stage IV N18.4 Acute kidney injury N17.9 Hypertensive emergency I16.1 Anemia D64.9
[2022-02-26] MEDS ORDERED: ATROPINE SULFATE 1% OP SOLN 5 ML BTL SL PRN (16:38)
--- NOTE | 2022-02-26 17:00 | XCELERA ---
[id number]
--- NOTE | 2022-02-26 18:58 | Hospitalist Progress Note ---
Date of Service February 26, 2022 Assessment & Plan (1) Acute on chronic respiratory failure with hypoxia and hypercapnia: Plan: Presented this admission with severe distress requiring BIPAP in the ER, nitro drip for HTN emergency, and IV lasix for acute/chronic diastolic CHF. Nearly needed intubation but able to get through the early part of his stay with the BIPAP. Admitted to ICU hospital day #1. Was diuresed until 3 days ago at which point his creatinine began to rise and lasix was stopped. Yesterday he developed recurrent, severe respiratory distress. This was likely a combination of NSTEMI with further decompensation of his CHF. His troponin is high. Echo with new wall motion abnormality in comparison to echo earlier in the stay - c/w NSTEMI / ischemia. At this time he desires no further routine care. Desires comfort care and symptomatic relief only. Will stop BIPAP, heparin drip, other routine meds except for comfort meds. I did give him 3mg of bumex IV this am; will give another 3mg now to help with dyspnea so that he can enjoy the remainder of his time with his family. (2) Acute on chronic diastolic CHF (congestive heart failure): Plan: ongoing. will give another dose of bumex this afternoon to help with dyspnea. suspect ischemia/NSTEMI led to further decompensation yesterday. (3) NSTEMI (non-ST elevated myocardial infarction): Plan: echo with new anterior wall motion abnormality. he is not a cath candidate. his severe CKD with CARMELO most likely would lead to dialysis. he does not want such. CABG was in 2004 - likely to have multiple graft occlusions. transition to comfort care as above. (4) COPD (chronic obstructive pulmonary disease) with emphysema: Plan: with O2 dependency (5) Elevated troponin: Plan: 2nd NSTEMI (6) Obstructive sleep apnea: (7) Acute kidney injury: Plan: in setting of CKD stage 4 poor urine output even with large amounts of diuretics cardiorenal syndrome picture (8) CKD (chronic kidney disease), stage IV: Plan: baseline CrCl 20s baseline creatinine low 2's now with superimposed CARMELO (9) Hypertensive emergency: Plan: present on admission requiring ICU stay (10) CAD, multiple vessel: Plan: h/o CABG see above under "NSTEMI" (11) Hyperlipidemia: Plan: stop statin therapy - transition to comfort care pathway (12) History of prostate cancer: Plan: PSA fall 2020 was <0.5 (13) Constipation: Plan: resolved (14) Encephalopathy acute: Plan: resolved was likely due to ativan, hypoxia, and events of yesterday afternoon pt fully awake/alert/comprehending the plan of care very well today Plan: after lengthy discussion with patient along with his son-in-law & daughter at bedside we will transition to comfort care pathway at this time stop all unnecessary meds, heparin drip, tele, BIPAP, etc Brii Hathaway's efforts appreciated; she will cont to follow from palliative care standpoint move to med/surg total time today 45 min family to contact a commissioner of officials they know to see if that person can pay Mr Benito a visit Admission and Anticipated Discharge Date Admission Date: February 17, 2022 Subjective when I entered the pt's room today he stated right away - "doc, I'm ready to go. I just want to see my granddaughters. I want to fall asleep and not wake up." his daughter & son-in-law were at bedside. they stated he has consistently throughout the afternoon told them he is ready to be comfortable. he voiced feeling very anxious, dyspneic. he was tearful at times. we talked about comfort care and what that means. he doesn't have a strong clotilde in a higher power, but was open to the idea of having some commissioner of officials come to offer him a blessing. daughter/ son-in-law in support of comfort care. since his respiratory event yesterday he has continued with dyspnea. no chest pain no abd pain tele was normal thru the night Review of Systems Review of Systems: gen - weak, fatigue cv - orthopneic, no chest pain pulm - ongoing dyspnea at rest GI - no pain today psych - very anxious, sad Physical Exam Physical Exam: gen - tearful, emotional; tachypneic with ongoing subcostal r etracting neck - JVD likely present mouth - MMM heart - RRR, s1 s2, 2/6 systolic murmur LSB lungs - decreased BS bases, L>R; crackles b/l; retractions - ongoing abd - soft, NT, BS+, no HSM ext - no edema, pulses 2+ b/l psych - oriented, very awake/alert today, consistent in his wishes/desires for care Results & Data Results & Data ([facility]) Vital Signs (Past 12 Hours) Vital Signs Temp Pulse Pulse Resp BP Pulse Ox 02/26/22 15:46 36.5 C 67 20 169/68 H 93 02/26/22 11:52 36.5 C 63 18 144/54 H 91 02/26/22 11:05 68 20 93 02/26/22 08:04 36.3 C L 75 20 169/77 H 97 Laboratory Results Laboratory Results - last 24 hr 02/25/22 02/25/22 02/25/22 18:17 18:17 21:49 WBC RBC Hgb Hct MCV MCH MCHC RDW Std Deviation RDW Coeff of Natalie Plt Count MPV APTT 33.0 H PTT Ratio 1.2 Sodium Potassium Chloride Carbon Dioxide Anion Gap BUN Creatinine Est Cr Clr Drug Dosing Est GFR ( Amer) Est GFR (Non-Af Amer) BUN/Creatinine Ratio Glucose Calcium Troponin I High Sens 1896.7 H* D Procalcitonin 0.20 02/26/22 02/26/22 02/26/22 00:38 04:42 05:49 WBC 9.82 RBC 3.12 L Hgb 9.7 L Hct 29.2 L MCV 93.6 MCH 31.1 MCHC 33.2 RDW Std Deviation 46.6 H RDW Coeff of Natalie 13.8 Plt Count 284 MPV 11.9 H APTT 64.7 H* PTT Ratio 2.4 Sodium Potassium Chloride Carbon Dioxide Anion Gap BUN Creatinine Est Cr Clr Drug Dosing Est GFR ( Amer) Est GFR (Non-Af Amer) BUN/Creatinine Ratio Glucose Calcium Troponin I High Sens 2071.6 H* Procalcitonin 02/26/22 05:49 WBC RBC Hgb Hct MCV MCH MCHC RDW Std Deviation RDW Coeff of Natalie Plt Count MPV APTT PTT Ratio Sodium 138 Potassium 4.8 Chloride 103 Carbon Dioxide 25 Anion Gap 10 BUN 85 H Creatinine 3.67 H Est Cr Clr Drug Dosing 16.7 Est GFR ( Amer) 16.8 Est GFR (Non-Af Amer) 14.5 BUN/Creatinine Ratio 23.2 H Glucose 103 H Calcium 8.9 Troponin I High Sens 2126.6 H* Procalcitonin Diagnostic Findings echo - limited - likely hypokinesis of anterior wall PG Care Time/CCT Total # of Minutes Spent Total Time Spent with Patient: Total time spent is greater than 50% in coordination of care (as documented) at patient's floor/unit and/or counseling patient: Coding Level of Care Code 77655 Subseq Hosp Care Lvl 3 Diagnoses Acute on chronic respiratory failure with hypoxia and hypercapnia J96.21; J96.22 Acute on chronic diastolic CHF (congestive heart failure) I50.33 NSTEMI (non-ST elevated myocardial infarction) I21.4 COPD (chronic obstructive pulmonary disease) with emphysema J43.9 Elevated troponin R77.8 Obstructive sleep apnea G47.33 Acute kidney injury N17.9 CKD (chronic kidney disease), stage IV N18.4 Hypertensive emergency I16.1 CAD, multiple vessel I25.10 Hyperlipidemia E78.5 History of prostate cancer Z85.46 Constipation K59.00 Encephalopathy acute G93.40
[2022-02-26] MEDS: HEPARIN SODIUM/DEXTROSE 25,000 UNITS/500 ML BAG IV SCH (20:30)
[2022-02-26] MEDS: LORazepam 2 MG/1 ML VIAL IV PRN (20:44)
[2022-02-26] MEDS: MELATONIN 3 MG TAB PO SCH (20:44)
--- NOTE | 2022-02-26 22:58 | Electrocardiogram Report ---
Test Reason : Blood Pressure : / mmHG Vent. Rate : 067 BPM Atrial Rate : 067 BPM P-R Int : 216 ms QRS Dur : 140 ms QT Int : 452 ms P-R-T Axes : 040 -70 174 degrees QTc Int : 477 ms Sinus rhythm with 1st degree A-V block Left axis deviation Right bundle branch block Abnormal ECG When compared with ECG of 17-FEB-2022 08:46, Premature ventricular complexes are no longer Present T wave inversion more evident in Anterolateral leads Confirmed by Audi Hall ([id number] on 02/26/2022 10:57:51 PM Referred By: [facility] Confirmed By:Audi Hall
[2022-02-27] MEDS: LORazepam 2 MG/1 ML VIAL IV PRN ×4 (00:05→20:39)
[2022-02-27] MEDS: UMECLIDINIUM/VILANTEROL 62.5/25MCG 7 PUFFS/INHALER INH SCH (07:43)
--- NOTE | 2022-02-27 13:19 | Nephrology Progress Note ---
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 He is comfortable at this time. Urine output acceptable. Volume status reasonable. He has been consistent in his refusal of dialysis. Goals of care reviewed today. Plan of care reviewed with primary team. Nephrology will sign-off, please call with questions or concerns. Admission and Anticipated Discharge Date Admission Date: February 17, 2022 Subjective Bernardo was seen and evaluated with his daughter at the bedside. He is resting comfortably in bed. Denies shortness of breath or chest pain. Transitioned care to BANDMILL OPERATOR and is happy with his decision. Review of Systems Review of Systems: All systems reviewed & are unremarkable except as noted in HPI & below Physical Exam Constitutional: well developed; no acute distress Eyes: no scleral abnormality and no corneal abnormality ENMT: Mouth: no oral mucosal abnormality and oral mucous membranes not dry Neck: normal visual inspection and trachea midline Respiratory: normal respiratory effort Auscultation: lungs clear to auscultation bilaterally Cardiovascular: Rate/Rhythm: regular rate Heart Sounds: normal S1 and norm al S2 Extremities: no edema Musculoskeletal: Extremities: no cyanosis and no clubbing Skin: normal turgor; no lesions Neurologic: Motor/Sensory: no tremor and no asterixis Psychiatric: Orientation: alert and oriented x 3 PG Care Time/CCT Total # of Minutes Spent Total Time Spent with Patient: Total time spent is greater than 50% in coordination of care (as documented) at patient's floor/unit and/or counseling patient: Coding Level of Care Code 31716 Subseq Hosp Care Lvl 2 Diagnoses Anemia D64.9 Acute on chronic diastolic CHF (congestive heart failure) I50.33 CKD (chronic kidney disease), stage IV N18.4 Palliative care encounter Z51.5 Acute kidney injury N17.9
[2022-02-27] MEDS: CHECK SCOPOLAMINE PATCH PLACEMENT SCH (16:16)
[2022-02-27] MEDS: SCOPOLAMINE 1 MG TDSY TD SCH (16:16)
[2022-02-27] MEDS: MELATONIN 3 MG TAB PO SCH (22:36)
--- NOTE | 2022-02-27 23:52 | Hospitalist Progress Note ---
Date of Service February 27, 2022 Assessment & Plan (1) Palliative care encounter: Plan: cont comfort care measures/pathway including ativan prn, dilaudid prn, O2, hodgson, atropine drops prn add scopolamine patch (2) Acute on chronic respiratory failure with hypoxia and hypercapnia: Plan: Presented this admission with severe distress requiring BIPAP in the ER, nitro drip for HTN emergency, and IV lasix for acute/chronic diastolic CHF. Nearly needed intubation but able to get through the early part of his stay with the BIPAP. Admitted to ICU hospital day #1. Was diuresed for the first portion of his stay. 02/25/22 - developed recurrent, severe respiratory distress. This was likely a combination of NSTEMI with further decompensation of his CHF. Trop >1999. Echo with new wall motion abnormality in comparison to echo earlier in the stay - c/w NSTEMI / ischemia. Started on heparin drip. Diuresed IV bumex. 02/26/22 - patient voiced desire to stop routine care & transition to comfort car e. (3) Acute on chronic diastolic CHF (congestive heart failure): Plan: recurrent episodes during the hospitalization. suspect ischemia/NSTEMI led to further decompensation 02/25/22. (4) NSTEMI (non-ST elevated myocardial infarction): Plan: echo with new anterior wall motion abnormality. he is not a cath candidate. his severe CKD with CARMELO most likely would lead to dialysis. he voiced he did not want such. CABG was in 2004 - likely to have multiple graft occlusions. transitioned to comfort care as above. 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, multiple vessel: Plan: h/o CABG see above under "NSTEMI" (12) Hyperlipidemia: (13) History of prostate cancer: Plan: PSA fall 2020 was <0.5 (14) Constipation: (15) Encephalopathy acute: Plan: had resolved prior to transition to comfort care Admission and Anticipated Discharge Date Admission Date: February 17, 2022 Subjective patient was significantly altered during my rounds he opened his eyes to me calling his name looked at me, but unable to answer questions quickly fell back asleep Review of Systems Review of Systems: Unobtainable due to cognitive status Physical Exam Physical Exam: gen - sleepy/groggy/lethargic, mild tachypnea noted neck - JVD heart - RRR, s1 s2 lungs - decreased BS L base, crackles b/l, subcostal retractions, tachypnea abd - soft NT ND ext - feet warm PG Care Time/CCT Total # of Minutes Spent Total Time Spent with Patient: Total time spent is greater than 50% in coordination of care (as documented) at patient's floor/unit and/or counseling patient: Coding Level of Care Code 85356 Subseq Hosp Care Lvl 1 Diagnoses Acute on chronic respiratory failure with hypoxia and hypercapnia J96.21; J96.22 Acute on chronic diastolic CHF (congestive heart failure) I50.33 NSTEMI (non-ST elevated myocardial infarction) I21.4 COPD (chronic obstructive pulmonary disease) with emphysema J43.9 Elevated troponin R77.8 Obstructive sleep apnea G47.33 Acute kidney injury N17.9 CKD (chronic kidney disease), stage IV N18.4 Hypertensive emergency I16.1 CAD, multiple vessel I25.10 Hyperlipidemia E78.5 History of prostate cancer Z85.46 Constipation K59.00 Encephalopathy acute G93.40 Palliative care encounter Z51.5
[2022-02-28] MEDS: CHECK SCOPOLAMINE PATCH PLACEMENT SCH ×4 (00:23→23:10)
[2022-02-28] MEDS: LORazepam 2 MG/1 ML VIAL IV PRN ×3 (01:48→16:09)
[2022-02-28] MEDS: HYDROmorphone INJ 0.5 MG/0.5 ML SYR IV PRN ×2 (03:34→17:40)
[2022-02-28] MEDS: UMECLIDINIUM/VILANTEROL 62.5/25MCG 7 PUFFS/INHALER INH SCH (11:18)
[2022-02-28] MEDS: SCOPOLAMINE 1 MG TDSY TD SCH (17:41)
[2022-02-28] MEDS ORDERED: STAT IV Infusion **Titration per Protocol STA (17:49)
[2022-02-28] MEDS ORDERED: MoRPHine SULF/NSS 250 MG/250 ML BTL IV SCH (18:00)
[2022-02-28] MEDS: MELATONIN 3 MG TAB PO SCH (19:48)
--- NOTE | 2022-02-28 20:44 | Hospitalist Progress Note ---
Date of Service February 28, 2022 Assessment & Plan (1) Palliative care encounter: Plan: patient with terminal agitation and increased work of breathing due to escalating pulmonary edema. cont ativan prn. dilaudid 0.3mg IV x 1 did not provide relief of increased work of breathing while I was at bedside. thus, stop IV dilaudid prn - start morphine infusion 2mg/hr. Titrate by 0.5mg increments every 30 min as needed for optimal comfort. cont other comfort care measures. support given to daughter, granddaughter at bedside. anticipate passing in the next 1-2 days. (2) Acute on chronic respiratory failure with hypoxia and hypercapnia: Plan: Presented this admission with severe distress requiring BIPAP in the ER, nitro drip for HTN emergency, and IV lasix for acute/chronic diastolic CHF. Nearly needed intubation but able to get through the early part of his stay with the BIPAP. Admitted to ICU hospital day #1. Was diuresed for the first portion of his stay. 02/25/22 - developed recurrent, severe respiratory distress. This was likely a combination of NSTEMI with further decompensation of his CHF. Trop >2000. Echo with new wall motion abnormality in comparison to echo earlier in the stay - c/w NSTEMI / ischemia. Started on heparin drip. Diuresed IV bumex. 02/26/22 - patient voiced desire to stop routine care & transition to comfort care. (3) Acute on chronic diastolic CHF (congestive heart failure): Plan: recurrent episodes during the hospitalization. suspect ischemia/NSTEMI led to further decompensation 02/25/22. (4) NSTEMI (non-ST elevated myocardial infarction): Plan: echo with new anterior wall motion abnormality. he is not a cath candidate. his severe CKD with CARMELO most likely would lead to dialysis. he voiced he did not want such. CABG was in 2004 - likely to have multiple graft occlusions. transitioned to comfort care as above. 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, multiple vessel: Plan: h/o CABG see above under "NSTEMI" (12) Hyperlipidemia: (13) History of prostate cancer: Plan: PSA fall 2020 was <0.5 (14) Constipation: (15) Encephalopathy acute: Plan: had resolved prior to transition to comfort care now obtunded Admission and Anticipated Discharge Date Admission Date: February 17, 2022 Subjective pt obtunded during the visit agitated - shifting in bed at times, and some respiratory distress with subcostal retractions daughter, granddaughter at bedside by report he was speaking this am but hasn't been awake since then Review of Systems Review of Systems: Unobtainable due to reduced consciousness Physical Exam Physical Exam: gen - obtunded; agitated; respiratory distress with tachypnea, subcostal retractions neck - JVD present heart - RRR, s1 s2 lungs -b/l crackles with respiratory increased work of breathing abd - mildly distended ext - feet cool to touch PG Care Time/CCT Total # of Minutes Spent Total Time Spent with Patient: Total time spent is greater than 50% in coordination of care (as documented) at patient's floor/unit and/or counseling patient: Coding Level of Care Code 60226 Subseq Hosp Care Lvl 1 Diagnoses Palliative care encounter Z51.5 Acute on chronic respiratory failure with hypoxia and hypercapnia J96.21; J96.22 Acute on chronic diastolic CHF (congestive heart failure) I50.33 NSTEMI (non-ST elevated myocardial infarction) I21.4 COPD (chronic obstructive pulmonary disease) with emphysema J43.9 Elevated troponin R77.8 Obstructive sleep apnea G47.33 Acute kidney injury N17.9 CKD (chronic kidney disease), stage IV N18.4 Hypertensive emergency I16.1 CAD, multiple vessel I25.10 Hyperlipidemia E78.5 History of prostate cancer Z85.46 Constipation K59.00 Encephalopathy acute G93.40
--- NOTE | 2022-03-01 20:35 | Discharge Summary ---
Date of Service date of admission - February 17, 2022 date of - February 28, 2022 time of - 2355 Admission HPI Per Admitting Provider Mr Benito is a 81-year-old male with a past medical history of CHF with diastolic dysfunction last EF 55-60% 12/10/2021, hypertension, COPD, multivessel CAD with history of CABG in 2014, and CKD 3 Baseline creatinine around 2.3 who was admitted 2 months ago for acute CHF exacerbation and who read presents with worsening shortness of breath to the emergency department. Patient was by report snider, hypoxic, and hypertensive and was nearly intubated in the ER. He did rapidly improve with Lasix, Nitropaste, and BiPAP. ABG shows compensated hypercapnia. EKG with difficult tracing, no overt ST segment changes/territorial changes. Inferior leads with initial appearing depression, this resolves on following beats and suspicious for artifact. BNP 2317, high- sensitivity troponin pending. CXR Interval progression of the moderate pulmonary edema and bilateral pleural effusion. Afebrile. Procal pending. No stends. Hx of BiPass x5 2004. Worsened breathing for at least 1 week of progressive shortness of breath acutely worsened severely overnight. Does radiate slightly to the left shoulder. Developed some pain last night with his severe shortnss of breath, did have some intermittent chest pain this week which may have preceded shortness of breath. Dr. Partida has followed him in the distant past past for pre-op. Ultimately had his surger done at [place]. Okay with procedures done here, but if he did have a major procedure would refer this to be done at [place]. Endorses chronic unchanged cough, nonproductive. No fevers, no chills, no sweats. No nausea/vomtiing/diarrhea. Does endorse some radiating left shoulder pain with his chest pain, which is improved but not yet resolved at time of bedside assessment. Reports much better 2/10 from "pretty bad "before admission Did have some ham for easter, did not add salt to it. Does have homemade soup intermittently. Principal Diagnosis acute hypoxic & hypercapnic respiratory failure -- 2nd to acute/chronic diastolic CHF and acute kidney injury in setting of NSTEMI Discharge Exam Final exam the day of his : gen - obtunded; agitated; respiratory distress with tachypnea, subcostal retractions neck - JVD present heart - RRR, s1 s2 lungs -b/l crackles with increased work of breathing abd - mildly distended ext - feet cool to touch Discharge Data Allergies Allergy/AdvReac Type Severity Reaction Status Date / Time amlodipine Allergy Unknown Unverified 02/17/22 07:51 aspirin Allergy Unknown Unverified 02/17/22 12:52 atorvastatin Allergy Unknown Unverified 02/17/22 12:52 Consultations 02/17/22 09:18 Consult Cardiology Routine 02/17/22 12:15 Consult Top Cager Routine 02/17/22 15:13 Consult Urology Routine 02/18/22 10:32 Consult Palliative Care Routine 02/18/22 15:23 Consult Nephrology Routine 02/18/22 17:19 Consult Oncology Routine Procedures Performed Echo x 2 Ordered Studies 02/17/22 13:17 CT abd pelvis wo con Urgent CT chest diagnostic wo con Urgent 02/21/22 09:12 US duplex renal artery Urgent Hospital Course (1) Palliative care encounter: Patient was transitioned to comfort care measures on 02/26/22 at his [facility] after developing worsening respiratory failure in the setting of NSTEMI and worsening renal function/CARMELO. He passed peacefully on the evening of 02/28/22 at 2355. (2) Acute on chronic respiratory failure with hypoxia and hypercapnia: Presented this admission with severe distress requiring BIPAP in the ER, nitro drip for HTN emergency, and IV lasix for acute/chronic diastolic CHF. Nearly needed intubation but able to get through the early part of his stay with the BIPAP. Admitted to ICU hospital day #1. Was diuresed for the first portion of his stay. Ultimately was transitioned from the ICU to the telemetry unit. 02/25/22 - developed recurrent, severe respiratory distress. This was likely a combination of NSTEMI with further decompensation of his CHF. Trop >2000. Echo with new anterior wall motion abnormality in comparison to echo earlier in the stay - c/w NSTEMI / ischemia. Started on heparin drip. Diuresed with escalating doses of IV bumex. Creatinine sanjuana considerably later in his stay; was 2.4 at admission, rising to 3.6 late in his stay. 02/26/22 - patient voiced desire to stop routine care & transition to comfort care. Comfort care pathway initiated at that time. 02/28/22 - passed peacefully at 2355. (3) Acute on chronic diastolic CHF (congestive heart failure): recurrent episodes during the hospitalization. suspect ischemia/NSTEMI led to further decompensation 02/25/22. (4) NSTEMI (non-ST elevated myocardial infarction): echo with new anterior wall motion abnormality. he was not a cath candidate. his severe CKD with CARMELO most likely would lead to dialysis. he voiced he did not want dialysis. CABG was in 2004 - likely to have multiple graft occlusions. transitioned to comfort care on 02/26/22. 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 creatinine at admission = 2.4 sanjuana to 3.6 later in the stay with attempts at diuresis (9) CKD (chronic kidney disease), stage IV: baseline CrCl 20s baseline creatinine low 2's (10) Hypertensive emergency: present on admission requiring ICU stay and multiple IV/PO medications (11) CAD, multiple vessel: h/o CABG see above under "NSTEMI" (12) Hyperlipidemia: (13) History of prostate cancer: PSA fall 2020 was <0.5 (14) Constipation: (15) Encephalopathy acute: had resolved prior to transition to comfort care Total Time Total Time Spent Total Time Spent (In Minutes): 20 Discharge Plan Discharge Items Patient Disposition: Other Date/Time: 02/28/22 23:52 Coding Level of Care Code D/C DAY MANAGEMENT <30 MINS Diagnoses Palliative care encounter Z51.5 Acute on chronic respiratory failure with hypoxia and hypercapnia J96.21; J96.22 Acute on chronic diastolic CHF (congestive heart failure) I50.33 NSTEMI (non-ST elevated myocardial infarction) I21.4 COPD (chronic obstructive pulmonary disease) with emphysema J43.9 Elevated troponin R77.8 Obstructive sleep apnea G47.33 Acute kidney injury N17.9 CKD (chronic kidney disease), stage IV N18.4 Hypertensive emergency I16.1 CAD, multiple vessel I25.10 Hyperlipidemia E78.5 History of prostate cancer Z85.46 Constipation K59.00 Encephalopathy acute G93.40
== END 2022-02-28 23:52 | disposition expired ==
LOC: ED 06:03 → 1E 09:34 → SUATTDRO 09:34 → 1E 12:15 → 2S 02-21 18:31 → 3N 02-23 18:39 → 2S 02-25 20:32 → 3W 02-26 19:08